=== PATIENT | male | born 1950 | race Caucasian/White ===

== ENCOUNTER 2016-10-20 16:21 | Inpatient (IN) | payer MEDICARE, OTHER ==
[2016-10-20] MEDS ORDERED: diPHENhydraMINE PO* 25 MG PO ONE (16:28)
[2016-10-20] MEDS ORDERED: Acetaminophen TAB* 325 MG PO ONE (16:28)
[2016-10-20] MEDS ORDERED: Furosemide IV* 10 MG/ML 10 ML VIAL (100 MG) IV ONE (16:31)
[2016-10-20] MEDS ORDERED: oxyCODONE TAB* 5 MG TAB PO PRN (17:05)
[2016-10-20] MEDS ORDERED: Ondansetron ODT TAB* 4 MG PO PRN (17:05)
[2016-10-20] MEDS: Insulin GLARGINE(*) 1 UNITS UNIT SUBCUT SCH (19:31)
[2016-10-20] MEDS: Metoprolol Succinate XL TAB* 100 MG PO SCH (20:15)
[2016-10-20] MEDS: Pantoprazole IV* 80 MG in NS 0.9% 250 ML* 250 ML IVPB SCH (21:29)
[2016-10-20] MEDS: NS 0.9% 1000 ML* 1,000 ML IV SCH (21:29)
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
[2016-10-21 04:01] LABS: Hematocrit 20 % (42-52); Hemoglobin 6.7 g/dl (14.0-18.0); Mean Corpuscular HGB Conc 33 g/dl (31-36); Mean Corpuscular Hemoglobin 30 pg (27-31); Mean Corpuscular Volume 90 fL (80-94); Mean Platelet Volume 8 um3 (7.4-10.4); Red Blood Count 2.23 10^6/ul (4.0-5.4); Red Cell Distribution Width 19 % (10.5-15); White Blood Count 8.9 10^3/ul (3.5-10.8)
[2016-10-21 04:02] LABS: Comments Flag Yes
[2016-10-21 04:19] LABS: Albumin 2.9 g/dL (3.2-5.2); BUN/Creatinine Ratio 31.1 (8-20); Calcium 8.7 mg/dL (8.6-10.3); EGFR African American 61.5 (>60); EGFR Non-African American 47.9 (>60); Globulin 2.8 g/dL (2-4); Potassium 4.4 mmol/L (3.5-5.0); Total Bilirubin 1.1 mg/dL (0.2-1.0); Total Protein 5.7 g/dL (6.4-8.9)
[2016-10-21] MEDS: Pantoprazole IV* 80 MG in NS 0.9% 250 ML* 250 ML IVPB SCH ×2 (05:54→13:39)
[2016-10-21] MEDS: Lisinopril TAB* 10 MG PO SCH (08:16)
[2016-10-21] MEDS: Digoxin TAB* 0.125 MG PO SCH (08:16)
[2016-10-21] MEDS: Metoprolol Succinate XL TAB* 100 MG PO SCH ×2 (08:16→20:45)
--- NOTE | 2016-10-21 09:41 | PN ---
Progress Note - Progress Note SOAP: Subjective: []See H+P for presentation. Today feeling much better after fluids and blood cells. He has low grade fever but no chills. Only modest abdominal pain, no recent steroids or NSAIDS. Hungry. PMHx: Esophogeal cancer, stage III. Completed Chemotherpay and XRT 08/25/16. PET in early October with good response and planning definitive surgery. A-fib on rate control CRI Digoxin (Lanoxin Tab*) 0.125 mg PO DAILY [facility] Last Admin: 10/21/16 08:16 Dose: 0.125 mg Pantoprazole Sodium 80 mg/ (Sodium Chloride) 250 mls @ 25 mls/hr IVPB Q10H [facility] Last Admin: 10/21/16 05:54 Dose: 25 mls/hr Sodium Chloride (Ns 0.9% 1000 Ml*) 1,000 mls @ 75 mls/hr IV PER RATE [facility] Last Admin: 10/20/16 21:29 Dose: 75 mls/hr Insulin Glargine (Lantus(*)) 30 units SUBCUT QPM [facility] Last Admin: 10/20/16 19:31 Dose: 30 units Lisinopril (Prinivil Tab*) 10 mg PO DAILY [facility] Last Admin: 10/21/16 08:16 Dose: 10 mg Metoprolol Succinate (Toprol Xl Tab*) 100 mg PO BID [facility] Last Admin: 10/21/16 08:16 Dose: 100 mg Ondansetron HCl (Zofran Odt Tab*) 4 mg PO Q6H PRN PRN Reason: NAUSEA Oxycodone HCl (Roxycodone Tab*) 5 mg PO Q4H PRN PRN Reason: PAIN Last Admin: 10/21/16 02:40 Dose: 5 mg Objective: [] Vital Signs Temp Pulse Resp BP Pulse Ox 99.2 F 74 19 103/62 99 10/21/16 08:00 10/21/16 08:16 10/21/16 07:00 10/21/16 06:00 10/21/16 07:00 HEENT - PALE, NO THRUSH CTA RRR S1S2 AND IN 80S GOOD BS, NT/ND EXT +1 [facility] NEURO [id number] Assessment: 66 year status post chemotherapy and radiation completed 2 months ago and now with acute GIB. Given improved PET scan is would be unusual to see bleeding from his tumor but it is possible. I am concerned about PUD. Bleeding acute to sub-acute, Hgb 9.0 in early October. Could have underlying iron deficiency. He has increased BUN but stable renal function, BP at his low baseline. Plan: []1. IV PPI and EGD today 2. Tx 4 U PRBC, follow up CBC today. No additional transfusions 3. a-fib stable on dig/beta rosalinda 4. BP stable, will continue IVF 5. NPO until after EGD 6. Has follow up at [facility] on Monday, if needed can delay appointment.
[2016-10-21 10:17] LABS: Albumin 2.8 g/dL (3.2-5.2); BUN/Creatinine Ratio 29.7 (8-20); Calcium 8.5 mg/dL (8.6-10.3); Globulin 2.9 g/dL (2-4); Potassium 4.2 mmol/L (3.5-5.0); Total Bilirubin 1.2 mg/dL (0.2-1.0); Total Protein 5.7 g/dL (6.4-8.9)
[2016-10-21 11:46] LABS: Hematocrit 24 % (42-52); Hemoglobin 7.8 g/dl (14.0-18.0); Mean Corpuscular HGB Conc 33 g/dl (31-36); Mean Corpuscular Hemoglobin 29 pg (27-31); Mean Corpuscular Volume 88 fL (80-94); Mean Platelet Volume 8 um3 (7.4-10.4); Red Blood Count 2.67 10^6/ul (4.0-5.4); Red Cell Distribution Width 21 % (10.5-15); White Blood Count 9.3 10^3/ul (3.5-10.8)
[2016-10-21] MEDS ORDERED: Pantoprazole IV* 40 MG ONE (13:32)
[2016-10-21] MEDS ORDERED: Midazolam* 1 MG/ML 10 ML VIAL (10 MG) ONE (15:24)
[2016-10-21] MEDS ORDERED: Meperidine SYRINGE* 50 MG/ML ONE (15:24)
[2016-10-21] MEDS ORDERED: Sucralfate SUSP 1 GM/10 ml 10 ML UDC PO SCH (17:30)
[2016-10-21] MEDS: Insulin GLARGINE(*) 1 UNITS UNIT SUBCUT SCH (18:17)
[2016-10-21] MEDS: Sucralfate SUSP 1 GM/10 ml 10 ML UDC PO SCH (20:46)
[2016-10-22] MEDS: Pantoprazole IV* 80 MG in NS 0.9% 250 ML* 250 ML IVPB SCH ×3 (01:06→21:28)
[2016-10-22] MEDS: Sucralfate SUSP 1 GM/10 ml 10 ML UDC PO SCH ×4 (02:16→21:25)
[2016-10-22 06:12] LABS: Hematocrit 23 % (42-52); Hemoglobin 7.5 g/dl (14.0-18.0); Mean Corpuscular HGB Conc 33 g/dl (31-36); Mean Corpuscular Hemoglobin 29 pg (27-31); Mean Corpuscular Volume 88 fL (80-94); Mean Platelet Volume 8 um3 (7.4-10.4); Red Blood Count 2.56 10^6/ul (4.0-5.4); Red Cell Distribution Width 20 % (10.5-15); White Blood Count 7.7 10^3/ul (3.5-10.8)
[2016-10-22 06:27] LABS: ALT 12 U/L (7-52); Albumin 2.8 g/dL (3.2-5.2); Alkaline Phosphatase 61 U/L (34-104); Blood Urea Nitrogen 32 mg/dL (6-24); CO2 Carbon Dioxide 19 mmol/L (22-32); Calcium 8.2 mg/dL (8.6-10.3); Chloride 108 mmol/L (101-111); EGFR African American 76.2 (>60); EGFR Non-African American 59.2 (>60); Glucose 100 mg/dL (70-100); Sodium 132 mmol/L (133-145); Total Protein 5.8 g/dL (6.4-8.9)
--- NOTE | 2016-10-22 07:20 | PRO ---
DATE: 10/21/16 - ROOM #ICU-08 PROCEDURE: Upper gastrointestinal endoscopy through the duodenal bulb. INDICATION: This 66-year-old man completed chemoradiation for adenocarcinoma of the esophagus. His hemoglobin yesterday was noted to be in the upper 4's and he was admitted to the ICU, transfused 4 units, placed on a Protonix drip, and had his Pradaxa held. Pradaxa had been held during his chemo course. It had been noted that his renal function had deteriorated somewhat. The probability of restarting it was emphasized at cardiology followup visit. Since admission last night, he has not had any vomiting and has not had any bowel movements. His hemoglobin has come up to 7.6. ENDOSCOPIST: Dr. Roberts. MEDICATIONS: Midazolam 10, meperidine 50. FINDINGS: He is a substantially overweight, middle-aged man, in no overt distress at this time. He states he is hungry. EGD: Larynx - views are quite limited as it is narrow. Esophagus - easily entered and the mucosa is normal at the upper sphincter and in the upper one-third of the esophagus and then some erosions began to be seen at 28, they increased at 30, and then adherent fresh blood clots were seen in the esophagus. They are located in several locations. They are lavaged clear and suctioned clear. The lower esophagus appears quite eroded and irregular though there is a very patent lumen. The esophagus is quite ulcerated from about 8 o'clock counterclockwise to noon. There are granular thickened folds, but compared to pre-treatment, again there is quite an adequate lumen. The EG junction is at about 40 and there is a wide hiatal hernia. There is no pulsatile bleeding or area of localized welling up. There is a diffuse bloody oozing area. Stomach - old blood is present, but the contours appear normal and there is no acute bleeding in the stomach. The antrum appears normal. Duodenum - pylorus, bulb, and a few centimeters at the apex of the bulb appear normal. IMPRESSION: Ulcerative esophagitis - in the area of treatment which would also correspond to an acid-vulnerable area. At this point, there is still probably some Pradaxa effect present and this will improve in the next few hours. He should be maintained on a PPI drip and maybe tomorrow switch to twice a day p.o. Topical Carafate after meals may also be helpful. [id number]/[facility] #: [id number] DEBORAH
[2016-10-22] MEDS ORDERED: Pantoprazole IV* 40 MG ONE (08:20)
[2016-10-22] MEDS: Metoprolol Succinate XL TAB* 100 MG PO SCH ×2 (08:33→21:25)
[2016-10-22] MEDS: Digoxin TAB* 0.125 MG PO SCH (08:34)
[2016-10-22] MEDS: Lisinopril TAB* 10 MG PO SCH (08:34)
[2016-10-22] MEDS: NS 0.9% 1000 ML* 1,000 ML IV SCH (17:06)
[2016-10-22] MEDS: Insulin GLARGINE(*) 1 UNITS UNIT SUBCUT SCH (17:57)
[2016-10-23] MEDS: Sucralfate SUSP 1 GM/10 ml 10 ML UDC PO SCH ×3 (00:20→14:40)
[2016-10-23] MEDS: NS 0.9% 1000 ML* 1,000 ML IV SCH (05:46)
[2016-10-23 05:59] LABS: Hematocrit 20 % (42-52); Mean Corpuscular HGB Conc 34 g/dl (31-36); Mean Corpuscular Hemoglobin 30 pg (27-31); Mean Corpuscular Volume 88 fL (80-94); Mean Platelet Volume 8 um3 (7.4-10.4); Red Blood Count 2.27 10^6/ul (4.0-5.4); Red Cell Distribution Width 20 % (10.5-15); White Blood Count 6.7 10^3/ul (3.5-10.8)
[2016-10-23 06:00] LABS: Comments Flag Yes
[2016-10-23 06:02] LABS: Hemoglobin 6.7 g/dl (14.0-18.0)
[2016-10-23] MEDS: Pantoprazole IV* 80 MG in NS 0.9% 250 ML* 250 ML IVPB SCH (07:39)
[2016-10-23] MEDS: Metoprolol Succinate XL TAB* 100 MG PO SCH (09:04)
[2016-10-23] MEDS: Digoxin TAB* 0.125 MG PO SCH (09:04)
[2016-10-23] MEDS: Lisinopril TAB* 10 MG PO SCH (09:05)
[2016-10-23 16:30] VITALS: BP 134/72
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
== END 2016-10-23 16:35 | disposition home or self-care (01) | DRG 381 ==
LOC: ICU 16:50
PROVIDERS: ADMIT Internal Medicine Hematology & Oncology; ATTEND Internal Medicine Hematology & Oncology
PROC: 0DJ08ZZ Inspection of Upper Intestinal Tract, Via Natural or Artificial Opening Endoscopic (ICD-10-PCS; 2016-10-21)
PROC: 30233N1 Transfusion of Nonautologous Red Blood Cells into Peripheral Vein, Percutaneous Approach (ICD-10-PCS; principal; 2016-10-23)
DX: K22.11 Ulcer of esophagus with bleeding (principal); C15.9 Malignant neoplasm of esophagus, unspecified; E11.22 Type 2 diabetes mellitus with diabetic chronic kidney disease; I50.9 Heart failure, unspecified; E66.01 Morbid (severe) obesity due to excess calories; D64.9 Anemia, unspecified; I25.5 Ischemic cardiomyopathy; I48.91 Unspecified atrial fibrillation; I25.10 Atherosclerotic heart disease of native coronary artery without angina pectoris; M10.9 Gout, unspecified; N18.9 Chronic kidney disease, unspecified; I25.2 Old myocardial infarction; Z95.810 Presence of automatic (implantable) cardiac defibrillator; Z98.61 Coronary angioplasty status; Z87.891 Personal history of nicotine dependence; Z92.21 Personal history of antineoplastic chemotherapy; Z92.3 Personal history of irradiation; Z68.32 Body mass index [BMI] 32.0-32.9, adult
CPT/HCPCS: 36415; 80053; 82272; 83735; 85025; 85027; 86850; 86900; 86901; 86922; 87040; 87641; 99223; 99232; A9270-GY; J1940; J2250; P9016; P9040

== ENCOUNTER 2017-03-03 13:53 | Inpatient (IN) | payer MEDICARE, OTHER ==
[2017-03-03] MEDS ORDERED: Ondansetron INJ* 2 MG/ML VIAL IV PRN (14:44)
[2017-03-03] MEDS ORDERED: LORazepam TAB(*) 0.5 MG PO PRN (14:45)
[2017-03-03] MEDS ORDERED: Pantoprazole IV* 80 MG in NS 0.9% 250 ML* 250 ML IVPB SCH ×4 (16:00)
[2017-03-03] MEDS: NS 0.9% 1000 ML* 1,000 ML IV SCH (16:36)
[2017-03-03] MEDS: Allopurinol TAB* 100 MG PO SCH (17:36)
[2017-03-03] MEDS: Insulin GLARGINE(*) 1 UNITS UNIT SUBCUT SCH (17:40)
[2017-03-03] MEDS: Ondansetron ODT TAB* 4 MG PO PRN (19:52)
[2017-03-03] MEDS: Metoprolol Tartrate TAB* 50 mg PO SCH (20:54)
[2017-03-03] MEDS ORDERED: Metoprolol Succinate XL TAB* 50 MG PO SCH (21:00)
[2017-03-03] MEDS: Pantoprazole IV* 80 MG in NS 0.9% 250 ML* 250 ML IVPB SCH (23:03)
[2017-03-03] MEDS: oxyCODONE TAB* 5 MG TAB PO PRN (23:13)
[2017-03-04] MEDS: NS 0.9% 1000 ML* 1,000 ML IV SCH ×2 (05:00→18:23)
[2017-03-04] MEDS: Ondansetron ODT TAB* 4 MG PO PRN ×3 (06:24→17:32)
[2017-03-04 06:30] LABS: Hematocrit 20 % (42-52); Hemoglobin 6.6 g/dl (14.0-18.0); Mean Corpuscular HGB Conc 33 g/dl (31-36); Mean Corpuscular Hemoglobin 30 pg (27-31); Mean Corpuscular Volume 89 fL (80-94); Mean Platelet Volume 8 um3 (7.4-10.4); Red Blood Count 2.25 10^6/ul (4.0-5.4); Red Cell Distribution Width 17 % (10.5-15); White Blood Count 4.3 10^3/ul (3.5-10.8)
[2017-03-04 06:34] LABS: Add Diff/Slide Review? Slide Review Added; Comments Flag Yes
[2017-03-04 06:53] LABS: Albumin 2.8 g/dL (3.2-5.2); BUN/Creatinine Ratio 22.1 (8-20); Calcium 8.5 mg/dL (8.6-10.3); EGFR African American 70.8 (>60); EGFR Non-African American 55.1 (>60); Globulin 2.7 g/dL (2-4); Total Bilirubin 1.4 mg/dL (0.2-1.0); Total Protein 5.5 g/dL (6.4-8.9)
[2017-03-04] MEDS ORDERED: Acetaminophen TAB* 325 MG PO PRN (08:12)
[2017-03-04] MEDS ORDERED: Furosemide IV* 10 MG/ML 2 ML VIAL (20 MG) IV ONE (08:15)
[2017-03-04] MEDS: Pantoprazole IV* 80 MG in NS 0.9% 250 ML* 250 ML IVPB SCH ×2 (08:22→18:23)
[2017-03-04] MEDS: Metoprolol Tartrate TAB* 50 mg PO SCH ×2 (08:23→20:38)
[2017-03-04] MEDS: Polyethylene Glycol 3350* 17 GM PACKET PO SCH (12:00)
[2017-03-04] MEDS: Miracle MW-Ben/Nyst/Tetrac SWISH SPIT SCH ×3 (12:01→19:21)
[2017-03-04 12:24] LABS: Hematocrit 24 % (42-52); Hemoglobin 7.9 g/dl (14.0-18.0)
--- NOTE | 2017-03-04 15:23 | CONS ---
CC: Dr. Purvis. * CONSULTATION REPORT: DATE OF CONSULTATION: 03/04/17 REQUESTING PHYSICIAN: Dr. Purvis. INDICATION: Anemia, iron deficiency, esophageal cancer. NARRATIVE: Mr. Lawrence is a pleasant 66-year-old gentleman with metastatic esophageal cancer, who is undergoing palliative chemotherapy. The patient was admitted from the Oncology Clinic yesterday due to dehydration, hypotension and anemia. The patient states that he has noticed dark stools for the past few weeks. He has been receiving chronic IV iron and IV blood transfusions. He has not seen any blood in his sputum that he is bringing up. He has also noted constipation for the past week. He has not been very hungry, but he is hungry now. The patient was admitted to the hospital for presumed bleeding from his esophageal tumor. The patient has received 1 unit of blood. He states that he is feeling little bit better. Unfortunately, he is also on anticoagulation for cardiomyopathy that is likely contributing to his bleeding. PAST MEDICAL HISTORY: Significant for gout, atrial fibrillation, congestive heart failure with low EF, coronary artery disease, diabetes, status post OH. PAST SURGICAL HISTORY: Includes stents and AICD. SOCIAL HISTORY: Quit smoking 5 years ago. Denies any alcohol. MEDICATIONS UPON ADMISSION: Include: 1. Allopurinol. 2. Ativan. 3. Atorvastatin. 4. Carafate. 5. Digoxin. 6. Lantus. 7. Lisinopril. 8. Oxycodone. 9. Pantoprazole. 10. Zofran. 11. Pradaxa. ALLERGIES: He has no known drug allergies. REVIEW OF SYSTEMS: Twelve systems were reviewed, other than mentioned in the HPI were unremarkable. PHYSICAL EXAM: Temperature is 98.7, blood pressure is 120/51, pulse is 81. General: Chronically ill-appearing male, in no apparent distress. Alert, oriented, and pleasant. Fluent. He is pale. Heart: Regular rate and rhythm. Lungs: Clear to auscultation. Abdomen: Obese. Positive bowel sounds. Soft, nontender and nondistended. No hepatosplenomegaly, masses, rebound or guarding. Conjunctivae are pale. Skin is warm and dry. LABORATORY DATA: Of note, hemoglobin is 6.6, platelets 95, white count 4.3. BUN 29, creatinine 1.31. ASSESSMENT AND PLAN: This is a 66-year-old gentleman with metastatic esophageal cancer, who is admitted with anemia, constipation. Regarding the anemia, likely he is oozing from his esophageal tumor. Unfortunately, there really is not much that we can do for that. If it worsens, we may need to consider radiation; however, endoscopic therapies for bleeding cessation do not typically help in this situation. Right now, I do not think he needs an upper endoscopy; however, if he continues to ooze or bleed, we may need to perform and want to rule out other potential causes. I would like to start him on MiraLAX for his constipation. He is asking for a regular diet. I think that this is fine and we will continue to follow along. [id number]/[facility] #: [id number] DEBORAH
[2017-03-04] MEDS: Insulin GLARGINE(*) 1 UNITS UNIT SUBCUT SCH (16:56)
[2017-03-04] MEDS: Allopurinol TAB* 100 MG PO SCH (17:32)
[2017-03-04] MEDS: Digoxin TAB* 0.25 MG PO SCH (17:32)
[2017-03-04 18:41] LABS: Hematocrit 22 % (42-52); Hemoglobin 7.3 g/dl (14.0-18.0)
[2017-03-04] MEDS: oxyCODONE TAB* 5 MG TAB PO PRN (19:20)
[2017-03-05 00:24] LABS: Hematocrit 20 % (42-52); Hemoglobin 6.5 g/dl (14.0-18.0)
[2017-03-05 00:31] LABS: Comments Flag Yes
[2017-03-05] MEDS: Pantoprazole IV* 80 MG in NS 0.9% 250 ML* 250 ML IVPB SCH ×2 (05:35→15:44)
[2017-03-05] MEDS: Ondansetron ODT TAB* 4 MG PO PRN (05:37)
[2017-03-05 06:20] LABS: Hematocrit 22 % (42-52); Hemoglobin 7.3 g/dl (14.0-18.0); Mean Corpuscular HGB Conc 33 g/dl (31-36); Mean Corpuscular Hemoglobin 30 pg (27-31); Mean Corpuscular Volume 90 fL (80-94); Mean Platelet Volume 10 um3 (7.4-10.4); Red Blood Count 2.48 10^6/ul (4.0-5.4); Red Cell Distribution Width 16 % (10.5-15)
[2017-03-05 06:33] LABS: Comments Flag Yes
[2017-03-05 06:34] LABS: White Blood Count 2.7 10^3/ul (3.5-10.8)
[2017-03-05] MEDS ORDERED: Digoxin TAB* 0.125 MG PO SCH (09:00)
[2017-03-05] MEDS: NS 0.9% 1000 ML* 1,000 ML IV SCH ×2 (09:25→20:02)
[2017-03-05] MEDS: Miracle MW-Ben/Nyst/Tetrac SWISH SPIT SCH ×4 (09:30→21:38)
[2017-03-05] MEDS: Metoprolol Tartrate TAB* 50 mg PO SCH ×2 (09:30→21:36)
[2017-03-05] MEDS: Polyethylene Glycol 3350* 17 GM PACKET PO SCH (09:30)
[2017-03-05] MEDS: Allopurinol TAB* 100 MG PO SCH (17:45)
[2017-03-05] MEDS: Insulin GLARGINE(*) 1 UNITS UNIT SUBCUT SCH (17:45)
[2017-03-05] MEDS: Digoxin TAB* 0.125 MG PO SCH (17:45)
[2017-03-05 19:32] LABS: Hematocrit 22 % (42-52); Hemoglobin 7.4 g/dl (14.0-18.0)
[2017-03-05 19:34] LABS: Comments Flag Yes
[2017-03-05] MEDS: oxyCODONE TAB* 5 MG TAB PO PRN (21:37)
[2017-03-06] MEDS: Pantoprazole IV* 80 MG in NS 0.9% 250 ML* 250 ML IVPB SCH ×4 (02:27→22:43)
[2017-03-06] MEDS: NS 0.9% 1000 ML* 1,000 ML IV SCH (06:13)
[2017-03-06] MEDS: Ondansetron ODT TAB* 4 MG PO PRN (07:33)
[2017-03-06] MEDS: Polyethylene Glycol 3350* 17 GM PACKET PO SCH (08:24)
[2017-03-06] MEDS: oxyCODONE TAB* 5 MG TAB PO PRN ×2 (08:28→19:32)
[2017-03-06] MEDS: Metoprolol Tartrate TAB* 50 mg PO SCH ×2 (08:30→22:27)
[2017-03-06] MEDS: Miracle MW-Ben/Nyst/Tetrac SWISH SPIT SCH ×4 (08:41→22:29)
--- NOTE | 2017-03-06 09:19 | PN ---
Progress Note - Progress Note Date of Service: 03/06/17 SOAP: Subjective: +marked RUQ pain this am ("feels like I am being stabbed by an ice pick" "do you think it is my gallbladder?"). none now. awaiting scope later today. no bloody BMs, no vomiting. Objective: Vital Signs Temp Pulse Resp BP Pulse Ox 97.8 F 74 12 118/65 97 03/06/17 08:20 03/06/17 08:20 03/06/17 08:28 03/06/17 08:20 03/06/17 08:20 sitting up in nad perr eomi op moist, adentulous CTA bl irr irr chest clean port soft nt +bs no le edema A+O x 3, nonfocal neurological exam Laboratory Results - last 24 hr 03/05/17 03/05/17 03/06/17 16:48 19:35 07:35 Hgb 7.4 L Hct 22 L POC Glucose (mg/dL) 147 H 127 H Acetaminophen (Tylenol Tab*) 650 mg PO Q6H PRN PRN Reason: PAIN/FEVER Allopurinol (Zyloprim Tab*) 100 mg PO QPM [facility] Last Admin: 03/05/17 17:45 Dose: 100 mg Digoxin (Lanoxin Tab*) 0.125 mg PO EVERY OTHER DAY@1700 [facility] Last Admin: 03/05/17 17:45 Dose: 0.125 mg Digoxin (Lanoxin Tab*) 0.25 mg PO EVERY OTHER DAY@1700 [facility] Last Admin: 03/04/17 17:32 Dose: 0.25 mg Heparin Sodium (Porcine) (Heparin Flush Port (Ivad)) 5 ml FLUSH DAILY [facility] PRN Reason: Protocol Last Admin: 03/06/17 07:49 Dose: Not Given Sodium Chloride (Ns 0.9% 1000 Ml*) 1,000 mls @ 100 mls/hr IV PER RATE [facility] Last Admin: 03/06/17 06:13 Dose: 100 mls/hr Pantoprazole Sodium 80 mg/ (Sodium Chloride) 250 mls @ 25 mls/hr IVPB Q10H [facility] Last Admin: 03/06/17 02:27 Dose: 25 mls/hr Insulin Glargine (Lantus(*)) 30 units SUBCUT QPM [facility] Last Admin: 03/05/17 17:45 Dose: 30 unit Lorazepam (Ativan Tab(*)) 0.5 mg PO BID PRN PRN Reason: AGITATION/ANXIETY Metoprolol Tartrate (Lopressor Tab*) 50 mg PO BID [facility] Last Admin: 03/06/17 08:30 Dose: 50 mg Multi-Ingredient Mouthwash/Gargle (Miracle Mw-Barney/Nyst/Tetrac*) 5 ml SWISH SPIT QID [facility] Last Admin: 03/06/17 08:41 Dose: 5 ml Ondansetron HCl (Zofran Inj*) 4 mg IV Q4H PRN PRN Reason: nausea Ondansetron HCl (Zofran Odt Tab*) 4 mg PO Q4H PRN PRN Reason: NAUSEA Last Admin: 03/06/17 07:33 Dose: 4 mg Oxycodone HCl (Roxycodone Tab*) 10 mg PO Q4H PRN PRN Reason: PAIN Last Admin: 03/06/17 08:28 Dose: 10 mg Polyethylene Glycol/Electrolytes (Miralax*) 17 gm PO DAILY [facility] Last Admin: 03/06/17 08:24 Dose: Not Given Assessment: 66 yo M w metastatic esophageal cancer on palliative weekly taxol (and ferrlicit ) admitted with dark stools and worsening anemia, with need for 5 units of blood in the last 6 days after 6 weeks of transfusion independence. DDx includes bleeding primary tumor vs. new process. Plan: -endoscopy later this am -check CBC at 10 am -holding pradaxa -cont PPI IV drip -cont dig for afib, no AC given active GI bleeding full code
[2017-03-06 10:53] LABS: Hematocrit 23 % (42-52); Hemoglobin 7.3 g/dl (14.0-18.0); Mean Corpuscular HGB Conc 32 g/dl (31-36); Mean Corpuscular Hemoglobin 29 pg (27-31); Mean Corpuscular Volume 89 fL (80-94); Mean Platelet Volume 10 um3 (7.4-10.4); Red Blood Count 2.55 10^6/ul (4.0-5.4); Red Cell Distribution Width 16 % (10.5-15)
[2017-03-06 11:01] LABS: Comments Flag Yes; White Blood Count 2.7 10^3/ul (3.5-10.8)
[2017-03-06] MEDS ORDERED: Meperidine SYRINGE* 50 MG/ML ONE (12:42)
[2017-03-06] MEDS ORDERED: Midazolam* 1 MG/ML 10 ML VIAL (10 MG) ONE (12:42)
[2017-03-06] MEDS: Digoxin TAB* 0.25 MG PO SCH (17:11)
[2017-03-06 18:22] LABS: Magnesium 1.7 mg/dL (1.9-2.7)
[2017-03-06] MEDS ORDERED: Magnesium Sulfate 2 GM IV IVPB ONE (19:00)
[2017-03-06] MEDS: Allopurinol TAB* 100 MG PO SCH (19:32)
[2017-03-06] MEDS: Insulin GLARGINE(*) 1 UNITS UNIT SUBCUT SCH (19:33)
[2017-03-06] MEDS: Magnesium Oxide TAB* 400 MG PO SCH (22:27)
[2017-03-07] MEDS: Miracle MW-Ben/Nyst/Tetrac SWISH SPIT SCH ×4 (08:53→21:55)
[2017-03-07] MEDS: Ondansetron ODT TAB* 4 MG PO PRN (08:53)
[2017-03-07] MEDS: Magnesium Oxide TAB* 400 MG PO SCH ×2 (08:53→21:54)
[2017-03-07] MEDS: Metoprolol Tartrate TAB* 50 mg PO SCH ×2 (08:53→21:54)
[2017-03-07] MEDS: Polyethylene Glycol 3350* 17 GM PACKET PO SCH (09:16)
[2017-03-07] MEDS ORDERED: Omeprazole CAP* 20 MG PO SCH (10:00)
[2017-03-07 10:28] LABS: Hematocrit 20 % (42-52); Mean Corpuscular HGB Conc 33 g/dl (31-36); Mean Corpuscular Hemoglobin 30 pg (27-31); Mean Corpuscular Volume 90 fL (80-94); Mean Platelet Volume 9 um3 (7.4-10.4); Red Blood Count 2.18 10^6/ul (4.0-5.4); Red Cell Distribution Width 16 % (10.5-15)
[2017-03-07 10:33] LABS: Comments Flag Yes
[2017-03-07 10:39] LABS: Hemoglobin 6.6 g/dl (14.0-18.0)
[2017-03-07 10:40] LABS: White Blood Count 2.9 10^3/ul (3.5-10.8)
--- NOTE | 2017-03-07 14:16 | RAD ---
INDICATION: Limited noncontrast CT of the chest for stereotactic external beam radiation therapy planning. Patient with a history of esophageal cancer. COMPARISON: Most recent CT the chest dated February 03, 2017 TECHNIQUE: Noncontrast CT of the chest with 2.5 mm beam thickness for the purpose of external beam radiation therapy. FINDINGS: Image quality is degraded by respiratory motion artifact. Postoperative findings include left-sided cardiac pacemaker with 2 leads overlying the heart and a right internal jugular vein Mediport with the tip terminating at the lower SVC. The lungs exhibit mild centrilobular emphysematous changes. There are small bilateral pleural effusions, larger on the right than the left and increase in size from the previous CT of the chest. The esophagus is mostly fluid-filled. Chronic findings in the upper abdomen include renal cysts, gallstones and calcified atherosclerosis of the abdominal aorta. IMPRESSION: 1. CT FINDINGS DESCRIBED ABOVE ON THIS LIMITED CT OF THE CHEST FOR THE PURPOSE OF SBRT PLANNING. 2. SLIGHT INCREASE IN SIZE OF THE BILATERAL PLEURAL EFFUSIONS.
--- NOTE | 2017-03-07 17:41 | PRO ---
CC: Dr. Purvis; Dr. Ramos * PROCEDURE REPORT: DATE OF PROCEDURE: 03/06/17 PROCEDURE: EGD. REFERRING PHYSICIAN: Dr. Dayne Barillas. INDICATION: Melena. MEDICATIONS GIVEN: 50 mg IV Demerol, 5 mg IV Versed. DESCRIPTION OF PROCEDURE: After the EGD procedure including risks, benefits, and alternatives not limited to perforation, surgery, and/or were explained to the patient, written consent was then obtained. IV medication was given and a bite block was placed between the teeth. An Olympus gastroscope was then inserted into the patient's mouth, advanced down the esophagus, into the stomach, into the distal duodenum. In the esophagus, at the GE junction, Z- line was intact. No erosive esophagitis, stricture, or ring was seen. However , he did have a very large and circumferential esophageal mass, this is a known malignancy, it extended approximately 7 cm, it was oozing of blood. No significant bleeding was seen, however, was oozing of blood. I could not pass the original adult scope and had to switch over to the pediatric gastroscope in order to navigate through the area. Scope was advanced through the GE junction, into the body of the stomach. Retroflex view and forward views were unremarkable. Scope was advanced through a widely patent pylorus, into duodenal bulb, into the distal duodenum, both of which were unremarkable. Scope was withdrawn into the stomach, where an H. pylori biopsy was obtained. Scope was then withdrawn from the patient. He tolerated the procedure well, was returned to the recovery room in stable condition. IMPRESSION: 1. Complete upper endoscopy into the distal duodenum with biopsies. 2. Biopsy for Helicobacter pylori. 3. Esophageal cancer, no malignancy, oozing of blood, this is the only bleeding source that I could find. I will discuss the findings with Dr. Umaña. [id number]/[facility] #: [id number] [facility]
[2017-03-07] MEDS: Digoxin TAB* 0.125 MG PO SCH (18:12)
[2017-03-07] MEDS: Allopurinol TAB* 100 MG PO SCH (18:13)
[2017-03-07] MEDS: Insulin GLARGINE(*) 1 UNITS UNIT SUBCUT SCH (18:13)
[2017-03-07] MEDS: oxyCODONE TAB* 5 MG TAB PO PRN (19:48)
[2017-03-07 20:21] VITALS: BP 130/69
--- NOTE | 2017-03-08 11:26 | RADMED ---
CC: Dr. Brambila; Dr. Herring; Dr. Dayne Barillas. * RADIATION ONCOLOGY INPATIENT CONSULTATION NOTE: DATE OF SERVICE: 03/07/17 - ROOM #442 REFERRING PHYSICIAN: Dr. Purvis. 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 Performance status ECOG 2. HISTORY OF PRESENT ILLNESS: Mr. Lawrence is a 66-year-old gentleman diagnosed with GE junction esophageal adenocarcinoma in May 2016. He subsequently underwent radiation therapy, 5040 cGy completed 08/25/16 along with concurrent cisplatin and 5FU. He developed local recurrence as well as metastatic disease to the liver with liver biopsy 12/23/16 confirming metastatic adenocarcinoma. He has been receiving subsequent chemotherapy, but has had multiple episodes of GI bleeding, and last week reported significant weakness and dizziness and fatigue and was found to have substantial anemia and has required hospital admission and multiple blood transfusions. On 03/06/17, he underwent repeat upper endoscopy with Dr. Brambila, identifying tumor in the distal esophagus actively oozing blood. He is referred for consideration of additional radiation therapy for palliation of bleeding from recurrent esophageal cancer. He has some intermittent pain problems, which he manages reasonably well, and after transfusions he is feeling quite a bit better. PAST MEDICAL HISTORY: Esophageal cancer, as in the history of present illness. History of gout, myocardial infarction, atrial fibrillation, congestive heart failure, coronary artery disease, and diabetes. FAMILY HISTORY: Significant for his father who had leukemia and his mother who had multiple myeloma as well as a sister with breast cancer. SOCIAL HISTORY: He is accompanied by his who is quite supportive. He is a former smoker and does not drink significant amount of alcohol. MEDICATIONS: 1. Tylenol. 2. Allopurinol. 3. Digoxin. 4. Lantus insulin. 5. Ativan. 6. Magnesium oxide. 7. Lopressor. 8. Miracle mouthwash. 9. Omeprazole. 10. Zofran. 11. Oxycodone. 12. MiraLAX. ALLERGIES: SOTALOL. REVIEW OF SYSTEMS: As in the history of present illness, otherwise a complete review of systems is obtained from the patient, reviewed negative for additional significant findings. PHYSICAL EXAMINATION: Vital Signs: Temperature 98.4, pulse rate 84, respiratory rate 24, oxygen saturation 99% on room air, and blood pressure 119/ 64. General: He is awake, alert, and oriented; in no acute distress. Normocephalic and atraumatic. Sclerae are anicteric. Neck: Supple. Full range of motion. Midline trachea. No masses palpable in the neck. Lungs have symmetric air entry bilaterally. Cardiovascular: S1 and S2, regular. Abdomen : Soft and nontender. Extremities: No cyanosis or edema. PATHOLOGY AND RADIOLOGY: Reviewed, as in the history of present illness. ASSESSMENT AND PLAN: Mr. 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 I discussed with the patient and his the logistics and rationale for consideration of additional radiation therapy, specifically for palliation of bleeding. I explained the potential risks and benefits of this treatment, alternatives, as well as the acute and group home frequent and uncommon toxicities. He is familiar from his prior radiation therapy which was completed in August 2016. I explained some potential increased risk for repeat radiation therapy, but with active bleeding, and with 6 months time that has passed since his prior treatment, the potential benefit of radiation therapy to reduce bleeding would seem to outweigh some potential risks. I did answer the patient's and his 's questions to the best of my ability. He is interested to proceed with radiation therapy as discussed, and did sign informed consent. He will undergo CT simulation today to facilitate treatment planning. For his situation, I recommend 2000 cGy at 400 cGy per fraction, tentative start date 03/08/17. Thank you for giving me the opportunity to participate in the care of this very pleasant gentleman. [id number]/[facility] #: [id number] [facility]
== END 2017-03-07 22:15 | disposition home or self-care (01) | DRG 375 ==
LOC: MEDTELE 14:58
PROVIDERS: ADMIT Internal Medicine Hematology & Oncology; ATTEND Internal Medicine Hematology & Oncology
PROC: 30233N1 Transfusion of Nonautologous Red Blood Cells into Peripheral Vein, Percutaneous Approach (ICD-10-PCS; 2017-03-03)
PROC: 0DB68ZX Excision of Stomach, Via Natural or Artificial Opening Endoscopic, Diagnostic (ICD-10-PCS; principal; 2017-03-06)
DX: C15.9 Malignant neoplasm of esophagus, unspecified (principal); I42.9 Cardiomyopathy, unspecified; I50.9 Heart failure, unspecified; I95.9 Hypotension, unspecified; C78.89 Secondary malignant neoplasm of other digestive organs; I48.91 Unspecified atrial fibrillation; E11.9 Type 2 diabetes mellitus without complications; D50.9 Iron deficiency anemia, unspecified; D63.8 Anemia in other chronic diseases classified elsewhere; R49.0 Dysphonia; I25.10 Atherosclerotic heart disease of native coronary artery without angina pectoris; M10.9 Gout, unspecified; Z87.891 Personal history of nicotine dependence; Z95.5 Presence of coronary angioplasty implant and graft; Z79.4 Long term (current) use of insulin; Z79.891 Long term (current) use of opiate analgesic; Z79.899 Other long term (current) drug therapy; I25.2 Old myocardial infarction; Z95.810 Presence of automatic (implantable) cardiac defibrillator; Z80.3 Family history of malignant neoplasm of breast; Z80.6 Family history of leukemia; Z80.8 Family history of malignant neoplasm of other organs or systems; E86.0 Dehydration
CPT/HCPCS: 36415; 36591; 77014; 80053; 82272; 83735; 85014; 85018; 85025; 85610; 85730; 86850; 86900; 86901; 86922; 87077; 93005; 96360; 99215; 99223; 99232; A9270-GY; G0463; J1642; J2250; J2310; J3475; P9040

== ENCOUNTER 2017-03-15 07:05 | Day surgery (SDC) | payer MEDICARE, OTHER ==
[~2017-03-15 07:05] MED LIST: Buffered Lidocaine 0.9% SYRIN* 5 ML/SYR SYRINGE INTRADERM ONE
[2017-03-15 07:51] LABS: Hematocrit 24 % (42-52); Hemoglobin 7.8 g/dl (14.0-18.0); Mean Corpuscular HGB Conc 32 g/dl (31-36); Mean Corpuscular Hemoglobin 29 pg (27-31); Mean Corpuscular Volume 91 fL (80-94); Mean Platelet Volume 8 um3 (7.4-10.4); Red Blood Count 2.64 10^6/ul (4.0-5.4); Red Cell Distribution Width 17 % (10.5-15)
[2017-03-15 07:52] LABS: Comments Flag Yes
[2017-03-15 07:53] LABS: White Blood Count 2.6 10^3/ul (3.5-10.8)
[2017-03-15] MEDS ORDERED: Oxymetazoline 0.05% NASAL SPR* 15 ML BTL ONE (11:21)
[2017-03-15] MEDS ORDERED: Lidocaine 4% TOPICAL* 50 ML TOP.SOLN ONE (11:21)
[2017-03-15] MEDS ORDERED: fentaNYL* 50 MCG/ML 2 ML VIAL (100 MCG VIAL) ONE (11:36)
[2017-03-15] MEDS ORDERED: Midazolam* 1 MG/ML 2 ML VIAL (2 MG) ONE (11:36)
[2017-03-15] MEDS ORDERED: Ondansetron INJ* 2 MG/ML VIAL ONE (11:49)
[2017-03-15] MEDS ORDERED: Etomidate* 2 MG/ML 10 ML VIAL ONE (11:49)
[2017-03-15] MEDS ORDERED: Dexamethasone IV* 4 MG/ML 1 ML (4 MG) ONE (11:49)
[2017-03-15] MEDS ORDERED: Succinylcholine* 20 MG/ML 10 ML VIAL ONE (11:49)
[2017-03-15] MEDS ORDERED: Lidocaine 2% PF * 5 ML VIAL ONE (11:49)
[2017-03-15] MEDS ORDERED: fentaNYL* 50 MCG/ML 2 ML VIAL (100 MCG VIAL) IV PRN (12:18)
[2017-03-15] MEDS ORDERED: HYDROmorphone* 1 MG/ML 1 ML SYR IV PRN (12:18)
[2017-03-15] MEDS ORDERED: Acetaminophen TAB* 325 MG PO PRN (12:18)
[2017-03-15] MEDS ORDERED: oxyCODONE TAB* 5 MG TAB ONE (12:34)
[2017-03-15] MEDS: oxyCODONE TAB* 5 MG TAB PO PRN ×2 (12:37→12:38)
[2017-03-15 13:47] VITALS: BP 130/65
--- NOTE | 2017-03-15 21:49 | OP ---
DATE OF OPERATION: 03/15/17 - [facility] DATE OF : 54 SURGEON: Donald Bedolla MD ANESTHESIOLOGIST: Ny Smith MD ANESTHESIA: General endotracheal anesthesia. PRE-OP DIAGNOSIS: Left vocal cord paralysis, complete. POST-OP DIAGNOSIS: Left vocal cord paralysis, complete. OPERATIVE PROCEDURE: Microlaryngoscopy with injection of Prolaryn Plus injectable implant into the left vocal cord. COMPLICATIONS: Good. SPECIMEN: None. BLOOD LOSS: None. DESCRIPTION OF PROCEDURE: The patient was taken to the operating room, placed on the supine position on the operating room table. General anesthesia was induced, and he was orotracheally intubated, turned and draped for the surgery. The laryngoscope was then inserted and suspended and the microscope was brought in and I loaded the Prolaryn on to the laryngeal injection needle and inserted it in multiple locations on the lateral aspect of the vocal cord and injected a total of 0.9 mL of the Prolaryn to medialize the vocal cord. Laryngoscope was removed. The patient tolerated the procedure well, no complications, and transferred to the recovery room in stable condition. [id number]/[facility] #: [id number] MTDD
== END 2017-03-15 13:40 | disposition home or self-care (01) ==
LOC: OR 07:05
PROVIDERS: ATTEND Otolaryngology
DX: J38.01 Paralysis of vocal cords and larynx, unilateral (principal); E11.9 Type 2 diabetes mellitus without complications; Z79.4 Long term (current) use of insulin; Z87.891 Personal history of nicotine dependence; I25.10 Atherosclerotic heart disease of native coronary artery without angina pectoris; C15.9 Malignant neoplasm of esophagus, unspecified; C78.7 Secondary malignant neoplasm of liver and intrahepatic bile duct; Z86.711 Personal history of pulmonary embolism
CPT/HCPCS: 36415; 85025; 86850; 86900; 86901; 86922; A9270-GY; J0330; J1100; J2250; J2405; J3010

== ENCOUNTER 2017-04-30 19:33 | Emergency (ER) | payer MEDICARE, OTHER ==
[2017-04-30] MEDS ORDERED: Acetaminophen TAB* 325 MG PO ONE (20:17)
[2017-04-30 20:50] LABS: Hematocrit 28 % (42-52); Hemoglobin 9.2 g/dl (14.0-18.0); Mean Corpuscular HGB Conc 33 g/dl (31-36); Mean Corpuscular Hemoglobin 27 pg (27-31); Mean Corpuscular Volume 82 fL (80-94); Mean Platelet Volume 8 um3 (7.4-10.4); Red Blood Count 3.43 10^6/ul (4.0-5.4); Red Cell Distribution Width 19 % (10.5-15); White Blood Count 6.1 10^3/ul (3.5-10.8)
[2017-04-30 21:04] LABS: Albumin 3.3 g/dL (3.2-5.2); BUN/Creatinine Ratio 8.8 (8-20); Calcium 9.5 mg/dL (8.6-10.3); EGFR African American 94.3 (>60); EGFR Non-African American 73.3 (>60); Globulin 3.2 g/dL (2-4); Potassium 3.8 mmol/L (3.5-5.0); Total Bilirubin 1.2 mg/dL (0.2-1.0); Total Protein 6.5 g/dL (6.4-8.9)
--- NOTE | 2017-04-30 21:09 | RAD ---
Indication: Fever, esophageal carcinoma. Single frontal view of the chest performed at 2052 hours was reviewed. Comparison is made with previous exam dated July 18, 2016. No mediastinal shift is noted. Heart is of normal size and configuration. Lung georges appear clear. The ICD device is in place. No changes noted since previous exam. IMPRESSION: NO ACTIVE CARDIOPULMONARY DISEASE IS NOTED.
[2017-04-30 21:51] LABS: Urine Bacteria Absent (Absent); Urine Bilirubin Negative (Negative); Urine Glucose Negative (Negative); Urine Nitrite Negative (Negative)
--- NOTE | 2017-04-30 23:50 | ED ---
Dra Jimenez Angela, scribenid for Damien Linares on 04/30/17 at 2013 . HPI Febrile Illness - HPI Summary HPI Summary: This pt is a 67 y/o male presenting to [facility] c/o fever since early this evening today at 1800. Pt notes that his fever was 100.9F at around 1800 and reports he is supposed to call Dr. Herring for any fever higher than 100.4F. Pt called Dr. Herring and he wanted him to come over to the ED to check his WBC count. Since 1800 today, his temperature has been increasing and decreasing. Pt additionally c/o cough with a lot of phlegm (although phlegm is typical for him). He denies taking Tylenol today and has only taken his regular medications. Pt is on chemo for esophageal cancer and now has spread to his liver. His last chemo was 3 weeks ago, and his next one is tomorrow. Pt denies sore throat, ear pain, chest pain. - History of Current Complaint Chief Complaint: EDFever Time Seen by Provider: 04/30/17 20:00 Hx Obtained From: Patient Onset/Duration: Started Hours Ago Timing: Lasting Hours Pain Intensity: 0 Associated Signs and Symptoms: Cough - Additional Pertinent History Primary Care Physician: [facility] - Allergy/Home Medications Allergies/Adverse Reactions: Allergies Allergy/AdvReac Type Severity Reaction Status Date / Time Sotalol AdvReac Intermediate See Comment Verified 04/30/17 19:47 PMH/Surg Hx/FS Hx/Imm Hx Endocrine/Hematology History: Reports: Hx Anticoagulant Therapy - Predaxa, Hx Blood Transfusions, Hx Diabetes, Hx Anemia Denies: Hx Blood Disorders, Hx Bone Marrow Disease, Hx Systemic Lupus Erythematosus, Hx Sickle Cell Disease, Hx Thyroid Disease, Hx Unexplained Bleeding, Other Endocrine/Hematological Disorders Cardiovascular History: Reports: Hx Angina, Hx Auto Implanted Cardiovert Defib, Hx Cardiac Arrest, Hx Cardiomegaly, Hx Congestive Heart Failure, Hx Coronary Artery Disease, Hx Hypotension, Hx Hypertension, Hx Pacemaker/ICD - PACER/ICD- NO MRIs, Other Cardiovascular Problems/Disorders - EF 46% per pt. Denies: Hx Aneurysm, Hx Angioplasty, Hx Congenital Heart Disease, Hx Deep Vein Thrombosis, Hx Embolism, Hx Hypercholesterolemia, Hx Peripheral Vascular Disease, Hx Rheumatic Fever, Hx Syncope, Hx Valvular Heart Disease Respiratory History: Reports: Hx Pneumonia Denies: Hx Asthma, Hx Chronic Bronchitis, Hx Chronic Obstructive Pulmonary Disease (COPD), Hx Cystic Fibrosis, Hx Lung Cancer, Hx Pleural Effusion, Hx Pulmonary Edema, Hx Pulmonary Embolism, Hx Seasonal Allergies, Hx Sleep Apnea, Other Respiratory Problems/Disorders GI History: Reports: Hx Gastrointestinal Bleed, Other GI Disorders - 1983 hx of chronic Gastrisis Denies: Hx Cirrhosis, Hx Crohn's Disease, Hx Diverticulosis, Hx Gall Bladder Disease, Hx Gastroesophageal Reflux Disease, Hx Hiatal Hernia, Hx Irritable Bowel, Hx Jaundice, Hx Obstructive Bowel, Hx Ileostomy, Hx Pyloric Stenosis, Hx Ulcer History: Denies: Hx Acute Renal Failure, Hx Benign Prostatic Hyperplasia, Hx Chronic Renal Failure, Hx Dialysis, Hx Kidney Infection, Hx Kidney Stones, Hx Renal Disease, Other Problems/Disorders Musculoskeletal History: Reports: Hx Back Problems Denies: Hx Arthritis, Hx Bursitis, Hx Congenital Bone Abnormalities, Hx Fibromyalgia, Hx Gout, Hx Orthopedic Injury, Hx Osteoporosis, Hx Scoliosis, Hx Tendonitis, Other Musculoskeletal History Sensory History: Reports: Hx Contacts or Glasses, Hx Hearing Problem - high frequency hearing loss Denies: Hx Cataracts, Hx Eye Injury, Hx Eye Prosthesis, Hx Glaucoma, Hx Legally Blind, Hx Macular Degeneration, Hx Vision Problem, Hx Deafness, Hx Hearing Aid, Other Sensory Impairments Opthamlomology History: Reports: Hx Contacts or Glasses Denies: Hx Cataracts, Hx Eye Injury, Hx Eye Prosthesis, Hx Glaucoma, Hx Legally Blind, Hx Macular Degeneration, Hx Vision Problem, Other Sensory Impairments Neurological History: Reports: Other Neuro Impairments/Disorders - vertigo Denies: Hx Dementia, Hx Developmental Delay, Hx Headaches, Hx Migraine, Hx Nerve Disease, Hx Seizures, Hx Spinal Cord Injury, Hx Transient Ischemic Attacks (TIA) Psychiatric History: Reports: Hx Anxiety Denies: Hx Attention Deficit Hyperactivity Disorder, Hx Eating Disorder, Hx Depression, Hx Panic Disorder, Hx Post Traumatic Stress Disorder, Hx Inpatient Treatment, Hx Community Mental Health Tx, Hx Schizophrenia, Hx Bipolar Disorder , Hx Suicide Attempt, Hx of Violent Episodes Against Others, Hx Substance Abuse , Other Psychiatric Issues/Disorders - Cancer History Cancer Type, Location and Year: esophageal CA May 2016 diagnosed Hx Chemotherapy: Yes Hx Radiation Therapy: Yes Hx Palliative Cancer Treatment: No - Surgical History Surgery Procedure, Year, and Place: Stent placement february 10, 2011 RCA. Vasectomy. ICD 12/2013 Hx Anesthesia Reactions: No - Immunization History Date of Tetanus Vaccine: UTD Date of Influenza Vaccine: NONE Infectious Disease History: No Infectious Disease History: Denies: Hx Clostridium Difficile, Hx Hepatitis, Hx Human Immunodeficiency Virus (HIV), Hx of Known/Suspected MRSA, Hx Shingles, Hx Tuberculosis, Hx Known/ Suspected VRE, Hx Known/Suspected VRSA, History Other Infectious Disease, Traveled Outside the [place] in Last 30 Days - Family History Known Family History: Positive: Cardiac Disease - [place], Diabetes, Other - cancer - Social History Alcohol Use: None Alcohol Amount: 1 BEER EVERY 2 WEEKS Substance Use Type: Reports: None Smoking Status (MU): Former Smoker Type: Cigarettes Amount Used/How Often: UP TO 3 PPD FOR 13 YRS Length of Time of Smoking/Using Tobacco: 13 YRS Have You Smoked in the Last Year: No Review of Systems Positive: Fever. Negative: Chills Negative: Sore Throat Negative: Chest Pain Positive: Cough. Negative: Shortness Of Breath Negative: Abdominal Pain Genitourinary: Negative Skin: Negative All Other Systems Reviewed And Are Negative: Yes Physical Exam Triage Information Reviewed: Yes Vital Signs On Initial Exam: Initial Vitals Temp Pulse Resp BP Pulse Ox 100.5 F 98 16 145/82 96 04/30/17 19:48 04/30/17 19:48 04/30/17 19:48 04/30/17 19:48 04/30/17 19:48 Vital Signs Reviewed: Yes Appearance: Positive: Well-Appearing, No Pain Distress Skin: Positive: Warm, Skin Color Reflects Adequate Perfusion, Dry Head/Face: Positive: Normal Head/Face Inspection Eyes: Positive: EOMI, SAMANTHA ENT: Positive: Normal ENT inspection Neck: Positive: Supple, Nontender Respiratory/Lung Sounds: Positive: Clear to Auscultation, Breath Sounds Present Cardiovascular: Positive: RRR, Pulses are Symmetrical in both Upper and Lower Extremities Abdomen Description: Positive: No Organomegaly, Soft Bowel Sounds: Positive: Present Musculoskeletal: Positive: Normal, Strength/ROM Intact, Other - port on right chest Neurological: Positive: Normal, Sensory/Motor Intact, Alert, Oriented to Person Place, Time Diagnostics - Vital Signs Vital Signs Temp Pulse Resp BP Pulse Ox 04/30/17 19:48 100.5 F 98 16 145/82 96 - Laboratory Result Diagrams: 04/30/17 20:35 04/30/17 20:35 Lab Statement: Any lab studies that have been ordered have been reviewed, and results considered in the medical decision making process. - Radiology chest XR Xray Interpretation: No Acute Changes - IMPRESSION: No active cardiopulmonary disease is noted. ED physician has reviewed this radiology report and agrees. Radiology Interpretation Completed By: Radiologist Course/Dx - Course Assessment/Plan: Pt is a 67 y/o male, with esophageal CA currently in chemo, presenting to [facility] c/o fever of 100.9 since today 1800. Pt additionally c/o cough. Bloodwork and chest XR were obtained. Chest XR is negative. Pt will be discharged with follow up from Dr. Herring and primary care provider. - Diagnoses Provider Diagnoses: Fever, Esophageal cancer Discharge - Discharge Plan Condition: Stable Disposition: HOME Patient Education Materials: Fever in Adults (ED) Referrals: Dayne Barillas MD [Primary Care Provider] - 3 Days Derrek Herring MD [Medical Doctor] - 3 Days Additional Instructions: Please follow up with your primary care provider and Dr. Herring. The documentation as recorded by the Dar mckeon Angela accurately reflects the service I personally performed and the decisions made by Vijay dupree Emmanuel.
[2017-05-01 00:03] VITALS: BP 149/70
== END 2017-05-01 00:02 | disposition home or self-care (01) ==
LOC: ED 19:33
DX: R50.9 Fever, unspecified (principal); C15.9 Malignant neoplasm of esophagus, unspecified; Z79.01 Long term (current) use of anticoagulants
CPT/HCPCS: 36415; 71010; 80053; 81003; 81015; 83605; 85025; 85610; 85730; 87040; 99283; A9270-GY

== ENCOUNTER 2017-06-29 14:16 | Inpatient (IN) | payer MEDICARE, OTHER ==
[2017-06-29] MEDS ORDERED: NS 0.9% 1000 ML* 1,000 ML IV ONE (14:58)
[2017-06-29 15:13] LABS: Hematocrit 22 % (42-52); Hemoglobin 7.4 g/dl (14.0-18.0); Mean Corpuscular HGB Conc 33 g/dl (31-36); Mean Corpuscular Hemoglobin 28 pg (27-31); Mean Corpuscular Volume 84 fL (80-94); Mean Platelet Volume 8 um3 (7.4-10.4); Red Blood Count 2.67 10^6/ul (4.0-5.4); Red Cell Distribution Width 20 % (10.5-15); White Blood Count 0.4 10^3/ul (3.5-10.8)
[2017-06-29 15:14] LABS: Comments Flag Yes
[2017-06-29 15:15] LABS: Add Diff/Slide Review? Slide Review Added
[2017-06-29 15:26] LABS: Albumin 3.4 g/dL (3.2-5.2); BUN/Creatinine Ratio 17.6 (8-20); C Reactive Protein 53.76 mg/L (< 5.00); Calcium 9.1 mg/dL (8.6-10.3); EGFR African American 88.2 (>60); EGFR Non-African American 68.6 (>60); Potassium 3.8 mmol/L (3.5-5.0); Total Protein 6.4 g/dL (6.4-8.9)
[2017-06-29] MEDS ORDERED: Cefepime(*) 2 GM in NS 0.9% 50 ML* 50 ML IVPB ONE (15:38)
[2017-06-29] MEDS ORDERED: NS 0.9% 50 ML* 50 ML ONE (16:00)
[2017-06-29] MEDS ORDERED: Cefepime 2 GM in Dextrose(*) 2 GM/50 ML BAG IV ONE (16:03)
[2017-06-29] MEDS ORDERED: Dextrose 50% Syringe 50 ML* 25 GM/50 ML SYRINGE IV PUSH PRN (16:31)
[2017-06-29] MEDS ORDERED: Ondansetron INJ* 2 MG/ML VIAL IV PRN (16:32)
[2017-06-29] MEDS ORDERED: Acetaminophen TAB* 325 MG PO PRN (16:32)
[2017-06-29] MEDS ORDERED: Nitroglycerin TAB 0.4 MG* 0.4 MG TAB SL PRN (16:33)
--- NOTE | 2017-06-29 16:45 | RAD ---
INDICATION: Fever COMPARISON: Most recent comparison chest x-ray is dated April 30, 2017 TECHNIQUE: PA and lateral views of the chest were obtained. FINDINGS: Again seen is a right internal jugular vein Mediport and a left upper chest single lead cardiac device. The heart and mediastinum are normal in size and contour. The lungs are grossly clear. There is no evidence of large pleural effusion. Visualized bones are normal for the patient's age. There is no radiographic evidence of free air beneath the diaphragm IMPRESSION: No radiographic evidence of acute cardiopulmonary disease.
[2017-06-29 16:47] LABS: Urine Bilirubin Negative (Negative); Urine Glucose Negative (Negative); Urine Nitrite Negative (Negative)
[2017-06-29] MEDS ORDERED: Enoxaparin(*) 40 MG/0.4 ML SYR SUBCUT SCH (17:00)
[2017-06-29] MEDS ORDERED: Sucralfate SUSP 1 GM/10 ml 10 ML UDC PO SCH (17:00)
[2017-06-29] MEDS ORDERED: CEFEPIME* 2 GM in Dextrose* 50 ml IV ONE (17:00)
[2017-06-29] MEDS: Allopurinol TAB* 100 MG PO SCH (17:46)
[2017-06-29] MEDS: Digoxin TAB* 0.25 MG PO SCH (17:46)
[2017-06-29] MEDS: Atropine 1% (ORAL/SL)* 15 ML BTL SL PRN ×2 (17:53→21:10)
[2017-06-29] MEDS: NS 0.9% 1000 ML* 1,000 ML IV SCH (17:58)
[2017-06-29] MEDS ORDERED: Insulin GLARGINE(*) 1 UNITS UNIT SUBCUT SCH (18:00)
[2017-06-29] MEDS ORDERED: Omeprazole CAP* 20 MG PO SCH (18:00)
--- NOTE | 2017-06-29 19:37 | HP ---
CC: Dr. Herring* HISTORY AND PHYSICAL: DATE OF ADMISSION: 06/29/17 TIME OF EVALUATION: 3:45 p.m. ONCOLOGIST: Dr. Herring. CHIEF COMPLAINT: "I had a fever." HISTORY OF PRESENT ILLNESS: Mr. Lawrence is a 67-year-old male with a past medical history of metastatic esophageal cancer, atrial fibrillation, congestive heart failure with ejection fraction 15% status post ICD, coronary artery disease, status post stent in 2010, type 2 diabetes, and gout, who presented to the emergency room with complaints of fever. The patient has metastatic disease and he is now on his third regimen of chemotherapy (he is receiving FOLFIRI). The patient states his last infusion was on 06/19/17 and he had his usual side effects of nausea and weakness, but today he was wearing a heating blanket, but his felt that he was really warm and checked his temperature and it was 102. So he came to the emergency room for further evaluation. He complains of significant sialorrhea, but this is not new to him. He denies cough, change in his shortness of breath, dysuria. He did have some nausea and diarrhea, but also states that this is not unusual after chemo. He denies chest pain, palpitations, headache, or other complaints. He also states that he has had issues with anemia and GI bleed in the past and that this is now much improved. He states that his stool has been brown with no signs of active bleeding. PAST MEDICAL HISTORY: 1. Atrial fibrillation. 2. CHF with ejection fraction of 15% status post ICD. 3. Coronary artery disease status post stent. 4. Type 2 diabetes. 5. Gout. 6. Metastatic esophageal cancer. 7. Prior history of GI bleed. 8. 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 MEDICATIONS: 1. Allopurinol 100 mg p.o. q.p.m. 2. Atorvastatin 20 mg p.o. at bedtime. 3. Digoxin 0.25 mg alternating with 0.125 mg every other day. 4. Lorazepam 0.5 mg p.o. b.i.d. as needed for anxiety. 5. Magnesium oxide 400 mg p.o. b.i.d. 6. Metoprolol tartrate 50 mg p.o. b.i.d. 7. Nitroglycerin 0.4 mg sublingual q.5 minutes as needed for chest pain, maximum 3 doses. 8. Ondansetron ODT 4 mg p.o. q.4 hours p.r.n. nausea. 9. Oxycodone 10 mg p.o. q.4 hours p.r.n. pain. 10. Pantoprazole 40 mg p.o. b.i.d. 11. Sucralfate 1 g p.o. t.i.d. with meals. ALLERGIES: With SOTALOL, the patient had shortness of breath. FAMILY HISTORY: Father at age 67 of CHF and leukemia. Mother at age 43 of multiple myeloma. Brother had CO and sister has breast cancer. SOCIAL HISTORY: The patient was a smoker, 3 packs a day for 35 years and he quit 5 years ago. He is a former drinker. Denies drug use. Surrogate decision maker is his , Romelia Rajan, phone number [phone]. REVIEW OF SYSTEMS: A 14-point review of systems was performed and all the pertinent negative and positive findings are in the HPI. PHYSICAL EXAMINATION GENERAL: The patient is a pleasant elderly male, sitting up in the ED stretcher , in no acute distress. VITAL SIGNS: Temperature 98.8, heart rate is 92, respiratory rate is 20, oxygen saturation is 98% on room air, blood pressure is 106/70. HEENT: Pupils are equal. Moist mucous membranes. No oral sores. CHEST: Breath sounds clear bilaterally. No added sounds. CVS: Normal S1, S2. Regular rate and rhythm. ABDOMEN: Soft. Bowel sounds are present. EXTREMITIES: No edema. NEUROLOGIC: He is alert, awake, oriented x3. Able to move all 4 extremities. LABORATORY AND IMAGING DATA: The patient had a CBC that showed a WBC of 0.4, hemoglobin of 7.4, hematocrit of 22, platelet count of with ANC of 0.1. Chemistry showed a sodium of 131, potassium 3.8, chloride of 99, bicarb of 24, BUN of 19, creatinine of 1.08, glucose of 191, lactic acid of 1.7, calcium 9.1. LFTs are normal except for alk phos of 169. CRP 53. BNP is 441. Urinalysis was negative. Chest x-ray shows ICD and a port in place, but no acute cardiopulmonary disease. ASSESSMENT AND PLAN: Mr. Lawrence is a 67-year-old male with a past medical history of type 2 diabetes, congestive heart failure with ejection fraction of 15% status post ICD, coronary artery disease status post stent, type 2 diabetes , peripheral neuropathy secondary to Taxol, metastatic esophageal cancer, who presents to the emergency room with complaints of fever, found to be neutropenic 10 days after his last chemotherapy with FOLFIRI. 1. Neutropenic fever. The patient was already pancultured in the emergency room and he will be treated empirically with cefepime. He will be admitted under Dr. Herring's service and he will take over his care tomorrow. At this point , there is no clear source of infection as his urinalysis and chest x-ray are normal. 2. Anemia. Likely secondary to his chemotherapy at this time as the patient states he has no signs of gastrointestinal bleed at this point. We will continue to monitor his H and H and transfuse if his hemoglobin is below 7. 3. Type 2 diabetes. We will continue Lantus and lispro sliding scale. 4. Congestive heart failure, appears to be stable at this time. The patient has no complaints of shortness of breath. His chest x-ray does not show congestion. We will just continue to monitor at this point. 5. Atrial fibrillation. The patient's heart rate is regular at this time. We will continue his metoprolol. He is off anticoagulation due to his prior episodes of gastrointestinal bleed. 6. DVT prophylaxis. The patient has a score of 4 on the DVT Prophylaxis Risk Assessment Guide what puts him at high risk for DVT, but with his history of gastrointestinal bleed and significant anemia, I think pharmacological prophylaxis is contraindicated and he will have SCDs only for now. If Dr. Herring sees fit, he can always start a pharmacological prophylaxis but I would like to see the trend of his H and H first. 7. Code status is full. TIME SPENT: Approximately 60 minutes was spent with patient and 's interview, medical records review, physical examination and to complete this admission, more than half of this time was spent [id number] with patient and coordination of care. [id number]/[facility] #: [id number] MTDD
[2017-06-29] MEDS: Atorvastatin* 20 MG TAB PO SCH (21:02)
[2017-06-29] MEDS: Metoprolol Tartrate TAB* 50 mg PO SCH (21:02)
[2017-06-29] MEDS: Magnesium Oxide TAB* 400 MG PO SCH (21:02)
[2017-06-29] MEDS: oxyCODONE TAB* 5 MG TAB PO PRN (21:02)
[2017-06-29] MEDS: Insulin LISPRO* 1 UNITS UNIT SUBCUT SCH (21:04)
[2017-06-29] MEDS: Cefepime 2 GM in Dextrose(*) 2 GM/50 ML BAG IV SCH (23:48)
[2017-06-30] MEDS: NS 0.9% 1000 ML* 1,000 ML IV SCH ×2 (04:36→13:35)
[2017-06-30 05:00] LABS: Hematocrit 19 % (42-52); Mean Corpuscular HGB Conc 32 g/dl (31-36); Mean Corpuscular Hemoglobin 27 pg (27-31); Mean Corpuscular Volume 84 fL (80-94); Mean Platelet Volume 9 um3 (7.4-10.4); Red Blood Count 2.22 10^6/ul (4.0-5.4); Red Cell Distribution Width 20 % (10.5-15); White Blood Count 0.3 10^3/ul (3.5-10.8)
[2017-06-30 05:01] LABS: Comments Flag Yes
[2017-06-30 05:02] LABS: Add Diff/Slide Review? Manual Diff Added
[2017-06-30 05:05] LABS: BUN/Creatinine Ratio 16.2 (8-20); Calcium 8.7 mg/dL (8.6-10.3); EGFR African American 97.6 (>60); EGFR Non-African American 75.9 (>60); Potassium 3.6 mmol/L (3.5-5.0)
[2017-06-30] MEDS: Atropine 1% (ORAL/SL)* 15 ML BTL SL PRN ×4 (07:12→21:03)
[2017-06-30] MEDS: Insulin LISPRO* 1 UNITS UNIT SUBCUT SCH ×7 (07:13→21:05)
[2017-06-30 07:51] LABS: Add Path Review? YES; Eosinophils % 16 % (0-6); Hypochromasia 2+; Neutrophil % 20 % (38-83)
--- NOTE | 2017-06-30 08:48 | ED ---
Dar Jimenez Angela, scribed for Lawrence Van MD on 06/29/17 at 1454 . HPI Febrile Illness - HPI Summary HPI Summary: This pt is a 67 y/o male, with PMHx of esophageal CA, accompanied by his presenting to [facility] c/o fever. reports she took his temperature at home and it was 102.2 F. She also took his temperature in the ED with her thermometer and it was 101 F. states the pt has not been feeling well all week and has had SOB. Pt's last chemotherapy was on 06/19/17. Pt's WBC and platelet count were low and he was given a shot 3 days ago. Pt notes he has spent 15 hours under a heating blanket to his chronic peripheral neuropathy. He is being followed up by Dr. Herring. - History of Current Complaint Chief Complaint: EDFever Hx Obtained From: Patient, Family/Supervisor Sound Technician - Onset/Duration: Started Days Ago, Still Present Timing: Constant, Lasting Days Temperature: 99 F - in the ED Pain Intensity: 0 Associated Signs and Symptoms: SOB - Additional Pertinent History Primary Care Physician: [facility] - Allergy/Home Medications Allergies/Adverse Reactions: Allergies Allergy/AdvReac Type Severity Reaction Status Date / Time Sotalol AdvReac Intermediate See Comment Verified 04/30/17 19:47 PMH/Surg Hx/FS Hx/Imm Hx Endocrine/Hematology History: Reports: Hx Anticoagulant Therapy - Predaxa, Hx Blood Transfusions, Hx Diabetes, Hx Anemia Denies: Hx Blood Disorders, Hx Bone Marrow Disease, Hx Systemic Lupus Erythematosus, Hx Sickle Cell Disease, Hx Thyroid Disease, Hx Unexplained Bleeding, Other Endocrine/Hematological Disorders Cardiovascular History: Reports: Hx Angina, Hx Auto Implanted Cardiovert Defib, Hx Cardiac Arrest, Hx Cardiomegaly, Hx Congestive Heart Failure, Hx Coronary Artery Disease, Hx Hypotension, Hx Hypertension, Hx Pacemaker/ICD - PACER/ICD- NO MRIs, Other Cardiovascular Problems/Disorders - EF 46% per pt. Denies: Hx Aneurysm, Hx Angioplasty, Hx Congenital Heart Disease, Hx Deep Vein Thrombosis, Hx Embolism, Hx Hypercholesterolemia, Hx Peripheral Vascular Disease, Hx Rheumatic Fever, Hx Syncope, Hx Valvular Heart Disease Respiratory History: Reports: Hx Pneumonia Denies: Hx Asthma, Hx Chronic Bronchitis, Hx Chronic Obstructive Pulmonary Disease (COPD), Hx Cystic Fibrosis, Hx Lung Cancer, Hx Pleural Effusion, Hx Pulmonary Edema, Hx Pulmonary Embolism, Hx Seasonal Allergies, Hx Sleep Apnea, Other Respiratory Problems/Disorders GI History: Reports: Hx Gastrointestinal Bleed, Other GI Disorders - 1983 hx of chronic Gastrisis Denies: Hx Cirrhosis, Hx Crohn's Disease, Hx Diverticulosis, Hx Gall Bladder Disease, Hx Gastroesophageal Reflux Disease, Hx Hiatal Hernia, Hx Irritable Bowel, Hx Jaundice, Hx Obstructive Bowel, Hx Ileostomy, Hx Pyloric Stenosis, Hx Ulcer History: Denies: Hx Acute Renal Failure, Hx Benign Prostatic Hyperplasia, Hx Chronic Renal Failure, Hx Dialysis, Hx Kidney Infection, Hx Kidney Stones, Hx Renal Disease, Other Problems/Disorders Musculoskeletal History: Reports: Hx Back Problems Denies: Hx Arthritis, Hx Bursitis, Hx Congenital Bone Abnormalities, Hx Fibromyalgia, Hx Gout, Hx Orthopedic Injury, Hx Osteoporosis, Hx Scoliosis, Hx Tendonitis, Other Musculoskeletal History Sensory History: Reports: Hx Contacts or Glasses, Hx Hearing Problem - high frequency hearing loss Denies: Hx Cataracts, Hx Eye Injury, Hx Eye Prosthesis, Hx Glaucoma, Hx Legally Blind, Hx Macular Degeneration, Hx Vision Problem, Hx Deafness, Hx Hearing Aid, Other Sensory Impairments Opthamlomology History: Reports: Hx Contacts or Glasses Denies: Hx Cataracts, Hx Eye Injury, Hx Eye Prosthesis, Hx Glaucoma, Hx Legally Blind, Hx Macular Degeneration, Hx Vision Problem, Other Sensory Impairments Neurological History: Reports: Other Neuro Impairments/Disorders - vertigo Denies: Hx Dementia, Hx Developmental Delay, Hx Headaches, Hx Migraine, Hx Nerve Disease, Hx Seizures, Hx Spinal Cord Injury, Hx Transient Ischemic Attacks (TIA) Psychiatric History: Reports: Hx Anxiety Denies: Hx Attention Deficit Hyperactivity Disorder, Hx Eating Disorder, Hx Depression, Hx Panic Disorder, Hx Post Traumatic Stress Disorder, Hx Inpatient Treatment, Hx Community Mental Health Tx, Hx Schizophrenia, Hx Bipolar Disorder , Hx Suicide Attempt, Hx of Violent Episodes Against Others, Hx Substance Abuse , Other Psychiatric Issues/Disorders - Cancer History Cancer Type, Location and Year: 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 Vasectomy. ICD 12/2013 Hx Anesthesia Reactions: No - Immunization History Date of Tetanus Vaccine: UTD Date of Influenza Vaccine: NONE Infectious Disease History: No Infectious Disease History: Denies: Hx Clostridium Difficile, Hx Hepatitis, Hx Human Immunodeficiency Virus (HIV), Hx of Known/Suspected MRSA, Hx Shingles, Hx Tuberculosis, Hx Known/ Suspected VRE, Hx Known/Suspected VRSA, History Other Infectious Disease, Traveled Outside the [place] in Last 30 Days - Family History Known Family History: Positive: Cardiac Disease - [place], Diabetes, Other - cancer - Social History Alcohol Use: None Alcohol Amount: 1 BEER EVERY 2 WEEKS Substance Use Type: Reports: None Smoking Status (MU): Former Smoker Type: Cigarettes Amount Used/How Often: UP TO 3 PPD FOR 13 YRS Length of Time of Smoking/Using Tobacco: 13 YRS Have You Smoked in the Last Year: No Review of Systems Positive: Fever, Chills Eyes: Negative ENT: Negative Positive: Shortness Of Breath Neurological: Other - peripheral neuropathy, chronic All Other Systems Reviewed And Are Negative: Yes Physical Exam - Summary Physical Exam Summary: VITAL SIGNS: Reviewed. GENERAL: Patient is a well-developed and nourished male who is lying comfortable in the stretcher. Patient is not in any acute respiratory distress. HEAD AND FACE: No signs of trauma. No ecchymosis, hematomas or skull depressions. No sinus tenderness. EYES: PERRLA, EOMI x 2, No injected conjunctiva, no nystagmus. EARS: Hearing grossly intact. Ear canals and tympanic membranes are within normal limits. MOUTH: Oropharynx within normal limits. NECK: Supple, trachea is midline, no adenopathy, no JVD, no carotid bruit, no c- spine tenderness, neck with full ROM. CHEST: Symmetric, no tenderness at palpation. Port on the left side of the chest. LUNGS: Clear to auscultation bilaterally. No wheezing or crackles. CVS: Regular rate and rhythm, S1 and S2 present, no murmurs or gallops appreciated. ABDOMEN: Soft, non-tender. No signs of distention. No rebound no guarding, and no masses palpated. Bowel sounds are normal. EXTREMITIES: FROM in all major joints, no edema, no cyanosis or clubbing. NEURO: Alert and oriented x 3. No acute neurological deficits. Speech is normal and follows commands. SKIN: Dry and warm Triage Information Reviewed: Yes Vital Signs On Initial Exam: Initial Vitals Temp Pulse Resp BP Pulse Ox 99 F 88 20 114/67 98 06/29/17 14:17 06/29/17 14:17 06/29/17 14:17 06/29/17 14:17 06/29/17 14:17 Vital Signs Reviewed: Yes Diagnostics - Vital Signs Vital Signs Temp Pulse Resp BP Pulse Ox 06/29/17 14:17 99 F 88 20 114/67 98 - Laboratory Lab Results: Lab Results 06/29/17 06/29/17 06/29/17 Range/Units 15:00 15:00 15:00 WBC 0.4 L (3.5-10.8) 10^3/ul RBC 2.67 L (4.0-5.4) 10^6/ul Hgb 7.4 L (14.0-18.0) g/dl Hct 22 L (42-52) % MCV 84 (80-94) fL MCH 28 (27-31) pg MCHC 33 (31-36) g/dl RDW 20 H (10.5-15) % Plt Count 31 L (150-450) 10^3/ul MPV 8 (7.4-10.4) um3 Neut % (Auto) 27.5 L (38-83) % Lymph % (Auto) 57.8 H (25-47) % Rush % (Auto) 5.6 (1-9) % Eos % (Auto) 9.0 H (0-6) % Baso % (Auto) 0.1 (0-2) % Absolute Neuts (auto) 0.1 L* (1.5-7.7) 10^3/ul Absolute Lymphs (auto) 0.2 L (1.0-4.8) 10^3/ul Absolute Monos (auto) 0 (0-0.8) 10^3/ul Absolute Eos (auto) 0 (0-0.6) 10^3/ul Absolute Basos (auto) 0 (0-0.2) 10^3/ul Absolute Nucleated RBC 0 10^3/ul Nucleated RBC % 0 Sodium 131 L (133-145) mmol/L Potassium 3.8 (3.5-5.0) mmol/L Chloride 99 L (101-111) mmol/L Carbon Dioxide 24 (22-32) mmol/L Anion Gap 8 (2-11) mmol/L BUN 19 (6-24) mg/dL Creatinine 1.08 (0.67-1.17) mg/dL Est GFR ( Amer) 88.2 (>60) Est GFR (Non-Af Amer) 68.6 (>60) BUN/Creatinine Ratio 17.6 (8-20) Glucose 191 H (70-100) mg/dL Lactic Acid (0.5-2.0) mmol/L Calcium 9.1 (8.6-10.3) mg/dL Total Bilirubin 1.00 (0.2-1.0) mg/dL AST 14 (13-39) U/L ALT 11 (7-52) U/L Alkaline Phosphatase 169 H (34-104) U/L C-Reactive Protein 53.76 H (< 5.00) mg/L B-Natriuretic Peptide 441 H ( - 100) pg/mL Total Protein 6.4 (6.4-8.9) g/dL Albumin 3.4 (3.2-5.2) g/dL Globulin 3.0 (2-4) g/dL Albumin/Globulin Ratio 1.1 (1-3) 06/29/17 Range/Units 15:00 WBC (3.5-10.8) 10^3/ul RBC (4.0-5.4) 10^6/ul Hgb (14.0-18.0) g/dl Hct (42-52) % MCV (80-94) fL MCH (27-31) pg MCHC (31-36) g/dl RDW (10.5-15) % Plt Count (150-450) 10^3/ul MPV (7.4-10.4) um3 Neut % (Auto) (38-83) % Lymph % (Auto) (25-47) % Rush % (Auto) (1-9) % Eos % (Auto) (0-6) % Baso % (Auto) (0-2) % Absolute Neuts (auto) (1.5-7.7) 10^3/ul Absolute Lymphs (auto) (1.0-4.8) 10^3/ul Absolute Monos (auto) (0-0.8) 10^3/ul Absolute Eos (auto) (0-0.6) 10^3/ul Absolute Basos (auto) (0-0.2) 10^3/ul Absolute Nucleated RBC 10^3/ul Nucleated RBC % Sodium (133-145) mmol/L Potassium (3.5-5.0) mmol/L Chloride (101-111) mmol/L Carbon Dioxide (22-32) mmol/L Anion Gap (2-11) mmol/L BUN (6-24) mg/dL Creatinine (0.67-1.17) mg/dL Est GFR ( Amer) (>60) Est GFR (Non-Af Amer) (>60) BUN/Creatinine Ratio (8-20) Glucose (70-100) mg/dL Lactic Acid 1.7 (0.5-2.0) mmol/L Calcium (8.6-10.3) mg/dL Total Bilirubin (0.2-1.0) mg/dL AST (13-39) U/L ALT (7-52) U/L Alkaline Phosphatase (34-104) U/L C-Reactive Protein (< 5.00) mg/L B-Natriuretic Peptide ( - 100) pg/mL Total Protein (6.4-8.9) g/dL Albumin (3.2-5.2) g/dL Globulin (2-4) g/dL Albumin/Globulin Ratio (1-3) Result Diagrams: 06/30/17 04:42 06/30/17 04:42 Lab Statement: Any lab studies that have been ordered have been reviewed, and results considered in the medical decision making process. - Radiology Chest XR Xray Interpretation: No Acute Changes - IMPRESSION: No radiographic evidence of acute cardiopulmonary disease. ED physician has reviewed this radiology report and agrees. Radiology Interpretation Completed By: Radiologist Re-Evaluation - Re-Evaluation First Eval Re-Evaluation Time: 15:40 Comment: I reviewed the lab results with the pt. I discussed the plan to admit with the pt and . They are agreeable with the plan. Course/Dx - Course Assessment/Plan: This pt is a 67 y/o male, with PMHx of esophageal CA, accompanied by his presenting to [facility] c/o fever. reports she took his temperature at home and it was 102.2 F. She also took his temperature in the ED with her thermometer and it was 101 F. states the pt has not been feeling well all week and has had SOB. Pt's last chemotherapy was on 06/19/17. Pt's WBC and platelet count were low and he was given a shot 3 days ago. Pt notes he has spent 15 hours under a heating blanket to his chronic peripheral neuropathy. He is being followed up by Dr. Herring. Test results without any significant abnormalities except WBC of 0.4, hemoglobin of 7.4, and hematocrit of 22, absolute neutrophils of 0.1, BNP of 441. I discussed the test results and findings with Dr. Herring, who recommends the pt to be started on cefepime. The pt was given IV fluids and blood cultures were sent to the lab. The pt will be admitted for further work up and management. Pt is hemodynamically stable, alert and oriented x3. - Diagnoses Provider Diagnoses: Fever, Neutropenia, Anemia - Provider Notifications Discussed Care Of Patient With: Derrek Herring Time Discussed With Above Provider: 15:36 Instructed by Provider To: Other - I discussed the pt's case with Dr. Herring, he has agreed to admit the pt. Discharge - Discharge Plan Condition: Stable Disposition: ADMITTED TO [facility] The documentation as recorded by the Dar mckeon Angela accurately reflects the service I personally performed and the decisions made by me, Lawrence Van MD.
[2017-06-30] MEDS: Cefepime 2 GM in Dextrose(*) 2 GM/50 ML BAG IV SCH ×2 (09:11→15:33)
[2017-06-30] MEDS: Magnesium Oxide TAB* 400 MG PO SCH ×2 (09:12→21:02)
[2017-06-30] MEDS: Metoprolol Tartrate TAB* 50 mg PO SCH ×2 (09:12→21:05)
--- NOTE | 2017-06-30 09:32 | PN ---
Progress Note - Progress Note Date of Service: 06/30/17 SOAP: Subjective: [][place] poorly for a week then fever of 102.4 at home, no heating blanket. Low grade temp overnight. Feeling better today. Still very fatigued. Eating better. Breathing fine. No diarrhea. Acetaminophen (Tylenol Tab*) 650 mg PO Q6H PRN PRN Reason: pain/fever Last Admin: 06/29/17 17:48 Dose: 650 mg Allopurinol (Zyloprim Tab*) 100 mg PO QPM [facility] Last Admin: 06/29/17 17:46 Dose: 100 mg Atorvastatin Calcium (Lipitor*) 20 mg PO BEDTIME [facility] Last Admin: 06/29/17 21:02 Dose: 20 mg Atropine Sulfate (Atropine 1% (Oral/Sl)*) 2 drop SL Q2H PRN PRN Reason: Excess secretion Last Admin: 06/30/17 07:12 Dose: 2 drop Dextrose (D50w Syringe 50 Ml*) 12.5 gm IV PUSH .FOR FS < 60 - SS PRN PRN Reason: FS < 60 Digoxin (Lanoxin Tab*) 0.25 mg PO EVERY OTHER DAY@1700 [facility] Last Admin: 06/29/17 17:46 Dose: 0.25 mg Digoxin (Lanoxin Tab*) 0.125 mg PO EVERY OTHER DAY@1700 [facility] Cefepime HCl (Maxipime 2 Gm In Dextrose Duplex (*)) 2 gm in 50 mls @ 100 mls/ hr IV Q8H [facility] Last Admin: 06/30/17 09:11 Dose: 100 mls/hr Sodium Chloride (Ns 0.9% 1000 Ml*) 1,000 mls @ 100 mls/hr IV PER RATE [facility] Last Admin: 06/30/17 04:36 Dose: 100 mls/hr Insulin Human Lispro (Humalog*) 0 units SUBCUT ACHS [facility] PRN Reason: Protocol Last Admin: 06/30/17 07:13 Dose: Not Given Insulin Human Lispro (Humalog*) 0 units SUBCUT AC [facility] PRN Reason: Protocol Last Admin: 06/30/17 07:13 Dose: Not Given Lorazepam (Ativan Tab(*)) 0.5 mg PO BID PRN PRN Reason: ANXIETY Magnesium Oxide (Magox 400 Tab*) 400 mg PO BID [facility] Last Admin: 06/30/17 09:12 Dose: 400 mg Metoprolol Tartrate (Lopressor Tab*) 50 mg PO BID [facility] Last Admin: 06/30/17 09:12 Dose: 50 mg Nitroglycerin (Nitroglycerin Tab 0.4 Mg*) 0.4 mg SL Q5M PRN PRN Reason: ANGINA Ondansetron HCl (Zofran Inj*) 4 mg IV Q6H PRN PRN Reason: NAUSEA Oxycodone HCl (Roxycodone Tab*) 10 mg PO Q4H PRN PRN Reason: PAIN Last Admin: 06/29/17 21:02 Dose: 10 mg Objective: [] Vital Signs Temp Pulse Resp BP Pulse Ox 98.6 F 97 18 108/60 99 06/30/17 07:06 06/30/17 07:06 06/30/17 07:06 06/30/17 07:06 06/30/17 07:06 HEENT - dry mouth no thrush. no teeth. Port non tender CTA S1S2, irregular, 70s Obease, +BS and NT Tr LENIN Neuro NF Assessment: []67 year old with metastatic esophogeal cancer comes in with NF and pancytopenia after FOLFIRI, cycle 1. Plan: []1. NF. Continue Cefepime and follow. Vancomycin for additional fevers. No source. 2. Pancytopenia. Expect prolonged recover: - Tx PRBC for Hgb < 8.0 - Tx plts < 10,000 3. History of bleeding but I expect drop in Hgb over past 24 hrs is dilutional. 4. FEN. Continue IVF, regular diet, follow Mg
[2017-06-30] MEDS: Allopurinol TAB* 100 MG PO SCH (16:40)
[2017-06-30] MEDS ORDERED: Digoxin TAB* 0.125 MG PO SCH (17:00)
[2017-06-30] MEDS: Atorvastatin* 20 MG TAB PO SCH (21:02)
[2017-06-30] MEDS: oxyCODONE TAB* 5 MG TAB PO PRN (21:04)
[2017-07-01] MEDS: Cefepime 2 GM in Dextrose(*) 2 GM/50 ML BAG IV SCH ×3 (00:09→16:30)
[2017-07-01] MEDS: NS 0.9% 1000 ML* 1,000 ML IV SCH (00:12)
[2017-07-01] MEDS: oxyCODONE TAB* 5 MG TAB PO PRN ×3 (01:51→21:39)
[2017-07-01 05:51] LABS: Comments Flag Yes; Hematocrit 25 % (42-52); Hemoglobin 8.3 g/dl (14.0-18.0); Mean Corpuscular HGB Conc 34 g/dl (31-36); Mean Corpuscular Hemoglobin 28 pg (27-31); Mean Corpuscular Volume 84 fL (80-94); Mean Platelet Volume 9 um3 (7.4-10.4); Red Blood Count 2.96 10^6/ul (4.0-5.4); Red Cell Distribution Width 18 % (10.5-15)
[2017-07-01 05:52] LABS: White Blood Count 0.5 10^3/ul (3.5-10.8)
[2017-07-01 06:03] LABS: BUN/Creatinine Ratio 13.3 (8-20); Calcium 8.7 mg/dL (8.6-10.3); EGFR African American 108.9 (>60); EGFR Non-African American 84.7 (>60); Magnesium 1.8 mg/dL (1.9-2.7); Potassium 3.6 mmol/L (3.5-5.0)
[2017-07-01] MEDS: Magnesium Oxide TAB* 400 MG PO SCH ×2 (08:10→21:34)
[2017-07-01] MEDS: Metoprolol Tartrate TAB* 50 mg PO SCH ×2 (08:10→21:34)
[2017-07-01] MEDS: Atropine 1% (ORAL/SL)* 15 ML BTL SL PRN ×2 (08:10→17:56)
--- NOTE | 2017-07-01 08:31 | PN ---
Progress Note - Progress Note Date of Service: 07/01/17 SOAP: Subjective: []Feeling much better. Mouth pain is better. Eating better and feels stronger. No fevers or chills. Acetaminophen (Tylenol Tab*) 650 mg PO Q6H PRN PRN Reason: pain/fever Last Admin: 06/29/17 17:48 Dose: 650 mg Allopurinol (Zyloprim Tab*) 100 mg PO QPM [facility] Last Admin: 06/30/17 16:40 Dose: 100 mg Atorvastatin Calcium (Lipitor*) 20 mg PO BEDTIME [facility] Last Admin: 06/30/17 21:02 Dose: 20 mg Atropine Sulfate (Atropine 1% (Oral/Sl)*) 2 drop SL Q2H PRN PRN Reason: Excess secretion Last Admin: 07/01/17 08:10 Dose: 2 drop Dextrose (D50w Syringe 50 Ml*) 12.5 gm IV PUSH .FOR FS < 60 - SS PRN PRN Reason: FS < 60 Digoxin (Lanoxin Tab*) 0.25 mg PO EVERY OTHER DAY@1700 [facility] Last Admin: 06/29/17 17:46 Dose: 0.25 mg Digoxin (Lanoxin Tab*) 0.125 mg PO EVERY OTHER DAY@1700 [facility] Last Admin: 06/30/17 16:40 Dose: 0.125 mg Cefepime HCl (Maxipime 2 Gm In Dextrose Duplex (*)) 2 gm in 50 mls @ 100 mls/ hr IV Q8H [facility] Last Admin: 07/01/17 08:10 Dose: 100 mls/hr Sodium Chloride (Ns 0.9% 1000 Ml*) 1,000 mls @ 100 mls/hr IV PER RATE [facility] Last Admin: 07/01/17 00:12 Dose: 100 mls/hr Insulin Human Lispro (Humalog*) 0 units SUBCUT ACHS [facility] PRN Reason: Protocol Last Admin: 06/30/17 21:05 Dose: Not Given Insulin Human Lispro (Humalog*) 0 units SUBCUT AC [facility] PRN Reason: Protocol Last Admin: 06/30/17 15:34 Dose: Not Given Lorazepam (Ativan Tab(*)) 0.5 mg PO BID PRN PRN Reason: ANXIETY Magnesium Oxide (Magox 400 Tab*) 400 mg PO BID [facility] Last Admin: 07/01/17 08:10 Dose: 400 mg Metoprolol Tartrate (Lopressor Tab*) 50 mg PO BID [facility] Last Admin: 07/01/17 08:10 Dose: 50 mg Nitroglycerin (Nitroglycerin Tab 0.4 Mg*) 0.4 mg SL Q5M PRN PRN Reason: ANGINA Ondansetron HCl (Zofran Inj*) 4 mg IV Q6H PRN PRN Reason: NAUSEA Last Admin: 06/30/17 16:39 Dose: 4 mg Oxycodone HCl (Roxycodone Tab*) 10 mg PO Q4H PRN PRN Reason: PAIN Last Admin: 07/01/17 01:51 Dose: 10 mg Objective: [] Vital Signs Temp Pulse Resp BP Pulse Ox 98.1 F 73 16 116/67 99 07/01/17 06:36 07/01/17 06:36 07/01/17 06:36 07/01/17 06:36 07/01/17 06:36 HEENT - dry mouth no thrush. no teeth. small mouth soars are improving. Port non tender CTA S1S2, irregular, 70s Obease, +BS and NT Tr LENIN Neuro NF Assessment: []67 year old with metastatic esophogeal cancer comes in with NF and pancytopenia after FOLFIRI, cycle 1. Improving today. Plan: []1. NF. Continue Cefepime and follow. Blood counts are increased today, expect full recovery next 48 hrs. 2. DM. Has had stable blood sugars at home. Will check BS BID in hospital and hold insulin 3. Re-start PPI. 4. FEN. Hold IVF, regular diet 5. Esophageal cancer. Will hold chemotherapy next week, re-start at 75% dose of irinotecan.
[2017-07-01] MEDS: Insulin LISPRO* 1 UNITS UNIT SUBCUT SCH ×2 (08:47)
[2017-07-01] MEDS: Omeprazole CAP* 20 MG PO SCH (09:42)
[2017-07-01] MEDS: Digoxin TAB* 0.25 MG PO SCH (16:30)
[2017-07-01] MEDS: Allopurinol TAB* 100 MG PO SCH (16:30)
[2017-07-01] MEDS: Atorvastatin* 20 MG TAB PO SCH (21:34)
[2017-07-02] MEDS: Cefepime 2 GM in Dextrose(*) 2 GM/50 ML BAG IV SCH ×3 (00:01→16:12)
[2017-07-02] MEDS: oxyCODONE TAB* 5 MG TAB PO PRN ×3 (02:30→21:44)
[2017-07-02] MEDS: Atropine 1% (ORAL/SL)* 15 ML BTL SL PRN ×5 (02:31→22:27)
[2017-07-02 05:40] LABS: Albumin 3.3 g/dL (3.2-5.2); BUN/Creatinine Ratio 14.4 (8-20); Calcium 9.5 mg/dL (8.6-10.3); EGFR African American 99.9 (>60); EGFR Non-African American 77.7 (>60); Globulin 3.1 g/dL (2-4); Magnesium 1.8 mg/dL (1.9-2.7); Potassium 3.5 mmol/L (3.5-5.0); Total Bilirubin 1.2 mg/dL (0.2-1.0); Total Protein 6.4 g/dL (6.4-8.9)
[2017-07-02 05:47] LABS: Hematocrit 25 % (42-52); Hemoglobin 8.2 g/dl (14.0-18.0); Mean Corpuscular HGB Conc 33 g/dl (31-36); Mean Corpuscular Hemoglobin 28 pg (27-31); Mean Corpuscular Volume 84 fL (80-94); Mean Platelet Volume 10 um3 (7.4-10.4); Red Blood Count 2.96 10^6/ul (4.0-5.4); Red Cell Distribution Width 19 % (10.5-15)
[2017-07-02 05:49] LABS: Comments Flag Yes
[2017-07-02 05:50] LABS: White Blood Count 0.5 10^3/ul (3.5-10.8)
[2017-07-02 05:51] LABS: Add Diff/Slide Review? Slide Review Added
[2017-07-02] MEDS: Metoprolol Tartrate TAB* 50 mg PO SCH ×2 (08:02→21:45)
[2017-07-02] MEDS: Magnesium Oxide TAB* 400 MG PO SCH ×2 (08:02→21:44)
[2017-07-02] MEDS: Omeprazole CAP* 20 MG PO SCH (08:03)
--- NOTE | 2017-07-02 11:21 | PN ---
Subjective Date of Service: 07/02/17 Interval History: HOSPITALIST PROGRESS NOTE Patient seen and examined at bedside. He feels better today and is anxious for discharge. His only complaints are his known oral lesions. Family History: Unchanged from Admission Social History: Unchanged from Admission Past Medical History: Unchanged from Admission Objective Active Medications: Acetaminophen (Tylenol Tab*) 650 mg PO Q6H PRN PRN Reason: pain/fever Last Admin: 06/29/17 17:48 Dose: 650 mg Allopurinol (Zyloprim Tab*) 100 mg PO QPM [facility] Last Admin: 07/01/17 16:30 Dose: 100 mg Atorvastatin Calcium (Lipitor*) 20 mg PO BEDTIME [facility] Last Admin: 07/01/17 21:34 Dose: 20 mg Atropine Sulfate (Atropine 1% (Oral/Sl)*) 2 drop SL Q2H PRN PRN Reason: Excess secretion Last Admin: 07/02/17 09:09 Dose: 2 drop Heparin Sodium (Porcine) (Heparin Flush Port (Ivad)) 5 ml FLUSH DAILY [facility] PRN Reason: Protocol Last Admin: 07/02/17 09:09 Dose: 5 ml Cefepime HCl (Maxipime 2 Gm In Dextrose Duplex (*)) 2 gm in 50 mls @ 100 mls/ hr IV Q8H [facility] Last Admin: 07/02/17 08:02 Dose: 100 mls/hr Lorazepam (Ativan Tab(*)) 0.5 mg PO BID PRN PRN Reason: ANXIETY Magnesium Oxide (Magox 400 Tab*) 400 mg PO BID [facility] Last Admin: 07/02/17 08:02 Dose: 400 mg Metoprolol Tartrate (Lopressor Tab*) 50 mg PO BID [facility] Last Admin: 07/02/17 08:02 Dose: 50 mg Nitroglycerin (Nitroglycerin Tab 0.4 Mg*) 0.4 mg SL Q5M PRN PRN Reason: ANGINA Omeprazole (Prilosec Cap*) 20 mg PO DAILY [facility] Last Admin: 07/02/17 08:03 Dose: 20 mg Ondansetron HCl (Zofran Inj*) 4 mg IV Q6H PRN PRN Reason: NAUSEA Last Admin: 06/30/17 16:39 Dose: 4 mg Oxycodone HCl (Roxycodone Tab*) 10 mg PO Q4H PRN PRN Reason: PAIN Last Admin: 07/02/17 02:30 Dose: 10 mg Vital Signs 07/02/17 08:06 Temperature 98.3 F Pulse Rate 79 Respiratory 16 Rate Blood Pressure 115/80 (mmHg) O2 Sat by Pulse 100 Oximetry Oxygen Devices in Use Now: None Appearance: Pleasant gentleman sitting up in a chair in NAD. Eyes: No Scleral Icterus Ears/Nose/Mouth/Throat: Mucous Membranes Moist Neck: Trachea Midline Respiratory: Symmetrical Chest Expansion and Respiratory Effort, Clear to Auscultation Cardiovascular: RRR - Normal S1 and S2 Neurological: Alert and Oriented x 3, NL Muscle Strength and Tone Lines/Tubes/Other Access: Clean, Dry and Intact Peripheral IV Nutrition: Taking PO's Result Diagrams: 07/02/17 05:00 07/02/17 05:00 Assess/Plan/Problems-Billing Assessment: Mr. Lawrence is a 67yo M with PMH of Afib, CHF with EF 15%, CAD s/p stent, type 2 DM, gout, metastatic esophageal CA undergoing chemo with FOLFIRI, admitted with neutropenic fever. - Patient Problems (1) Neutropenic fever Comment: - Remains afebrile, but WBC is 0.5 and ANC is 0. - Continue Cefepime. - Anemia and thrombocytopenia are trending up, but leukopenia is lagging behind. (2) Diabetes mellitus Comment: - Glucose has been <140 off medications. - Continue to monitor. (3) Atrial fibrillation Comment: - Continue Metoprolol. (4) DVT prophylaxis Comment: - SCDs. (5) Full code status Status and Disposition: Inpatient.
[2017-07-02] MEDS: Digoxin TAB* 0.125 MG PO SCH ×2 (11:45→21:45)
[2017-07-02] MEDS: Allopurinol TAB* 100 MG PO SCH (17:05)
[2017-07-02] MEDS: Atorvastatin* 20 MG TAB PO SCH (21:43)
[2017-07-03] MEDS: Cefepime 2 GM in Dextrose(*) 2 GM/50 ML BAG IV SCH ×3 (01:11→15:58)
[2017-07-03 06:58] LABS: Hematocrit 24 % (42-52); White Blood Count 0.5 10^3/ul (3.5-10.8)
[2017-07-03 07:00] LABS: Mean Corpuscular HGB Conc 33 g/dl (31-36); Mean Corpuscular Hemoglobin 28 pg (27-31); Mean Corpuscular Volume 85 fL (80-94); Mean Platelet Volume 9 um3 (7.4-10.4); Red Blood Count 2.81 10^6/ul (4.0-5.4); Red Cell Distribution Width 19 % (10.5-15)
[2017-07-03 07:15] LABS: BUN/Creatinine Ratio 16.3 (8-20); Calcium 9.5 mg/dL (8.6-10.3); EGFR African American 98.7 (>60); EGFR Non-African American 76.8 (>60); Potassium 3.3 mmol/L (3.5-5.0)
[2017-07-03 07:16] LABS: Comments Flag Yes
[2017-07-03 07:18] LABS: Add Diff/Slide Review? Slide Review Added
[2017-07-03] MEDS: Omeprazole CAP* 20 MG PO SCH (07:47)
[2017-07-03] MEDS: oxyCODONE TAB* 5 MG TAB PO PRN ×2 (07:47→21:05)
[2017-07-03] MEDS: Metoprolol Tartrate TAB* 50 mg PO SCH ×2 (07:48→20:11)
[2017-07-03] MEDS: Magnesium Oxide TAB* 400 MG PO SCH ×2 (07:48→20:00)
[2017-07-03] MEDS: Digoxin TAB* 0.125 MG PO SCH ×2 (07:55→20:01)
[2017-07-03] MEDS: LORazepam TAB(*) 1 MG PO PRN ×2 (07:55→19:59)
[2017-07-03] MEDS: Atropine 1% (ORAL/SL)* 15 ML BTL SL PRN ×4 (07:56→19:57)
[2017-07-03 09:22] LABS: Magnesium 1.9 mg/dL (1.9-2.7)
--- NOTE | 2017-07-03 10:22 | PN ---
Progress Note - Progress Note Date of Service: 07/03/17 SOAP: Subjective: []Admitted 3 days ago with neutropenic fever following 1 day OBV. No growth on cultures thus far. Last fever >72 hours ago. Feels fine. Wants to go home. Tells me he will sit in the corner of his house with a mask on and will be safer than being here, "where everyone comes and goes." Frustrated with dietary. Feels like he is getting mixed information about plan of care. Medications: Acetaminophen (Tylenol Tab*) 650 mg PO Q6H PRN PRN Reason: pain/fever Last Admin: 06/29/17 17:48 Dose: 650 mg Allopurinol (Zyloprim Tab*) 100 mg PO QPM [facility] Last Admin: 07/02/17 17:05 Dose: 100 mg Atorvastatin Calcium (Lipitor*) 20 mg PO BEDTIME [facility] Last Admin: 07/02/17 21:43 Dose: 20 mg Atropine Sulfate (Atropine 1% (Oral/Sl)*) 2 drop SL Q2H PRN PRN Reason: Excess secretion Last Admin: 07/03/17 07:56 Dose: 2 drop Digoxin (Lanoxin Tab*) 0.125 mg PO BID [facility] Last Admin: 07/03/17 07:55 Dose: 0.125 mg Heparin Sodium (Porcine) (Heparin Flush Port (Ivad)) 5 ml FLUSH DAILY [facility] PRN Reason: Protocol Last Admin: 07/02/17 17:04 Dose: 5 ml Cefepime HCl (Maxipime 2 Gm In Dextrose Duplex (*)) 2 gm in 50 mls @ 100 mls/ hr IV Q8H [facility] Last Admin: 07/03/17 08:11 Dose: 100 mls/hr Potassium Chloride (Potassium Chloride 20 Meq/100 Ml Ivpremix*) 20 meq in 100 mls @ 50 mls/hr IV Q2H [facility] Stop: 07/03/17 12:59 Lorazepam (Ativan Tab(*)) 0.5 mg PO BID PRN PRN Reason: ANXIETY Last Admin: 07/03/17 07:55 Dose: 0.5 mg Magnesium Oxide (Magox 400 Tab*) 400 mg PO BID [facility] Last Admin: 07/03/17 07:48 Dose: 400 mg Metoprolol Tartrate (Lopressor Tab*) 50 mg PO BID [facility] Last Admin: 07/03/17 07:48 Dose: 50 mg Nitroglycerin (Nitroglycerin Tab 0.4 Mg*) 0.4 mg SL Q5M PRN PRN Reason: ANGINA Omeprazole (Prilosec Cap*) 20 mg PO DAILY [facility] Last Admin: 07/03/17 07:47 Dose: 20 mg Ondansetron HCl (Zofran Inj*) 4 mg IV Q6H PRN PRN Reason: NAUSEA Last Admin: 06/30/17 16:39 Dose: 4 mg Oxycodone HCl (Roxycodone Tab*) 10 mg PO Q4H PRN PRN Reason: PAIN Last Admin: 07/03/17 07:47 Dose: 10 mg Objective: [] Vital Signs Temp Pulse Resp BP Pulse Ox 97.3 F 86 18 120/67 99 07/03/17 07:32 07/03/17 07:32 07/03/17 07:55 07/03/17 07:32 07/03/17 07:32 A&Ox3, EOMI, PERRLA, JACKMAN, neuro grossly non-focal No teeth, mucosa dry without patching or ulcerations HRR, S1S2 present, no murmur noted LS clear bilat. throughout with even and non-labored resp. +BS, abd. soft and non-tender +PP=bilat., no edema noted Laboratory Results - last 24 hr 06/30/17 07/02/17 07/03/17 04:42 17:11 06:30 WBC 0.5 L RBC 2.81 L Hgb 8.0 L Hct 24 L MCV 85 MCH 28 MCHC 33 RDW 19 H Plt Count 43 L D MPV 9 Neut % (Auto) 3.0 L Lymph % (Auto) 58.5 H Harris % (Auto) 17.8 H Eos % (Auto) 20.6 H Baso % (Auto) 0.1 Absolute Neuts (auto) 0 L* Absolute Lymphs (auto) 0.3 L Absolute Monos (auto) 0.1 Absolute Eos (auto) 0.1 Absolute Basos (auto) 0 Absolute Nucleated RBC Not Reportable Nucleated RBC % Not Reportable Sodium Potassium Chloride Carbon Dioxide Anion Gap BUN Creatinine Est GFR ( Amer) Est GFR (Non-Af Amer) BUN/Creatinine Ratio Glucose POC Glucose (mg/dL) 152 H Calcium Magnesium Blood Type O Positive Antibody Screen Negative Crossmatch See Detail 07/03/17 07/03/17 06:30 08:18 WBC RBC Hgb Hct MCV MCH MCHC RDW Plt Count MPV Neut % (Auto) Lymph % (Auto) Harris % (Auto) Eos % (Auto) Baso % (Auto) Absolute Neuts (auto) Absolute Lymphs (auto) Absolute Monos (auto) Absolute Eos (auto) Absolute Basos (auto) Absolute Nucleated RBC Nucleated RBC % Sodium 133 Potassium 3.3 L Chloride 103 Carbon Dioxide 24 Anion Gap 6 BUN 16 Creatinine 0.98 Est GFR ( Amer) 98.7 Est GFR (Non-Af Amer) 76.8 BUN/Creatinine Ratio 16.3 Glucose 126 H POC Glucose (mg/dL) 142 H Calcium 9.5 Magnesium 1.9 Blood Type Antibody Screen Crossmatch Assessment: []67 yo male with advanced esophageal cancer s/p C1 FOLFIRI (06/19/17) admitted with neutropenic fever. No growth on cultures, however lack of WBC recovery thus far. He initially was refusing to stay despite discussion of reasoning while counts so low, however Dr. Herring stopped in to see him and he agreed. Plan: []1. IV potassium today and try PO liquid 2. Enc. ambulation as tolerated 3. Unrestricted diet, stop FS, cont. AM labs D/C once ANC >/=500
[2017-07-03] MEDS: KCL 20 MEQ/100 ML IVPREMIX* 20 MEQ/100 ML BAG IV SCH ×2 (11:14→13:51)
[2017-07-03] MEDS: Allopurinol TAB* 100 MG PO SCH (16:53)
[2017-07-03] MEDS: Atorvastatin* 20 MG TAB PO SCH (19:59)
[2017-07-04] MEDS: Cefepime 2 GM in Dextrose(*) 2 GM/50 ML BAG IV SCH ×4 (00:10→23:50)
[2017-07-04] MEDS: Atropine 1% (ORAL/SL)* 15 ML BTL SL PRN ×5 (00:11→22:00)
[2017-07-04] MEDS: LORazepam TAB(*) 1 MG PO PRN ×2 (05:49→22:37)
[2017-07-04 06:16] LABS: Hemoglobin 7.4 g/dl (14.0-18.0)
[2017-07-04 06:20] LABS: Hematocrit 22 % (42-52); Mean Corpuscular HGB Conc 34 g/dl (31-36); Mean Corpuscular Hemoglobin 29 pg (27-31); Mean Corpuscular Volume 85 fL (80-94); Mean Platelet Volume 9 um3 (7.4-10.4); Red Cell Distribution Width 18 % (10.5-15)
[2017-07-04 06:29] LABS: BUN/Creatinine Ratio 17.8 (8-20); Calcium 8.8 mg/dL (8.6-10.3); EGFR African American 108.9 (>60); EGFR Non-African American 84.7 (>60); Globulin 2.7 g/dL (2-4); Magnesium 1.9 mg/dL (1.9-2.7); Potassium 3.7 mmol/L (3.5-5.0); Total Bilirubin 0.8 mg/dL (0.2-1.0); Total Protein 5.7 g/dL (6.4-8.9)
[2017-07-04 06:44] LABS: Comments Flag Yes
[2017-07-04 06:45] LABS: Add Diff/Slide Review? Slide Review Added; White Blood Count 0.5 10^3/ul (3.5-10.8)
[2017-07-04] MEDS: Metoprolol Tartrate TAB* 50 mg PO SCH ×2 (07:58→22:02)
[2017-07-04] MEDS: Magnesium Oxide TAB* 400 MG PO SCH ×2 (07:58→22:03)
[2017-07-04] MEDS: Omeprazole CAP* 20 MG PO SCH (07:58)
[2017-07-04] MEDS: Digoxin TAB* 0.125 MG PO SCH ×2 (07:58→22:01)
[2017-07-04] MEDS ORDERED: Ferric Gluconate IV* 125 MG in NS 0.9% 100 ML* 100 ML IVPB ONE (11:00)
[2017-07-04] MEDS ORDERED: Docusate CAP* 100 MG PO PRN (17:11)
[2017-07-04] MEDS ORDERED: Senna TAB PO PRN (17:12)
[2017-07-04] MEDS ORDERED: Alteplase (CATHFLO)* 2 MG VIAL ONE (18:00)
[2017-07-04] MEDS: Allopurinol TAB* 100 MG PO SCH (18:08)
[2017-07-04] MEDS: Atorvastatin* 20 MG TAB PO SCH (22:01)
[2017-07-04] MEDS: oxyCODONE TAB* 5 MG TAB PO PRN (22:01)
[2017-07-05 05:53] LABS: Hematocrit 23 % (42-52); Hemoglobin 7.7 g/dl (14.0-18.0); Mean Corpuscular HGB Conc 33 g/dl (31-36); Mean Corpuscular Hemoglobin 28 pg (27-31); Mean Corpuscular Volume 86 fL (80-94); Mean Platelet Volume 9 um3 (7.4-10.4); Red Blood Count 2.72 10^6/ul (4.0-5.4); Red Cell Distribution Width 18 % (10.5-15)
[2017-07-05 05:58] LABS: Comments Flag Yes
[2017-07-05 05:59] LABS: White Blood Count 0.8 10^3/ul (3.5-10.8)
[2017-07-05] MEDS: Cefepime 2 GM in Dextrose(*) 2 GM/50 ML BAG IV SCH ×3 (08:19→23:30)
[2017-07-05] MEDS: Magnesium Oxide TAB* 400 MG PO SCH ×2 (08:32→20:35)
[2017-07-05] MEDS: Omeprazole CAP* 20 MG PO SCH (08:33)
[2017-07-05] MEDS: Metoprolol Tartrate TAB* 50 mg PO SCH ×2 (08:33→20:34)
[2017-07-05] MEDS: LORazepam TAB(*) 1 MG PO PRN ×2 (08:34→23:29)
[2017-07-05] MEDS: Digoxin TAB* 0.125 MG PO SCH ×2 (08:35→20:35)
[2017-07-05] MEDS: Atropine 1% (ORAL/SL)* 15 ML BTL SL PRN ×2 (08:42→16:44)
--- NOTE | 2017-07-05 10:10 | PN ---
Progress Note - Progress Note Date of Service: 07/05/17 SOAP: Subjective: feels very good. much more accepting of staying in the hospital at this point. mild constipation, requesting miralax which works at home for him. Objective: Vital Signs Temp Pulse Resp BP Pulse Ox 98.3 F 78 17 98/60 98 07/05/17 03:56 07/05/17 08:35 07/05/17 08:34 07/05/17 03:56 07/05/17 03:56 perr eomi op moist, adentulous CTA bl s1 s 2nl soft nt +bs no le edema A+O x 3, grossly nonfocal neurological exam port clean Laboratory Results - last 24 hr 07/05/17 05:30 WBC 0.8 L RBC 2.72 L Hgb 7.7 L Hct 23 L MCV 86 MCH 28 MCHC 33 RDW 18 H Plt Count 63 L MPV 9 Neut % (Auto) 28.2 L Lymph % (Auto) 35.4 [place] % (Auto) 28.0 H Eos % (Auto) 8.2 H Baso % (Auto) 0.2 Absolute Neuts (auto) 0.2 L Absolute Lymphs (auto) 0.3 L Absolute Monos (auto) 0.2 Absolute Eos (auto) 0.1 Absolute Basos (auto) 0 Acetaminophen (Tylenol Tab*) 650 mg PO Q6H PRN PRN Reason: pain/fever Last Admin: 06/29/17 17:48 Dose: 650 mg Allopurinol (Zyloprim Tab*) 100 mg PO QPM [facility] Last Admin: 07/04/17 18:08 Dose: 100 mg Atorvastatin Calcium (Lipitor*) 20 mg PO BEDTIME [facility] Last Admin: 07/04/17 22:01 Dose: 20 mg Atropine Sulfate (Atropine 1% (Oral/Sl)*) 2 drop SL Q2H PRN PRN Reason: Excess secretion Last Admin: 07/05/17 08:42 Dose: 2 drop Digoxin (Lanoxin Tab*) 0.125 mg PO BID [facility] Last Admin: 07/05/17 08:35 Dose: 0.125 mg Docusate Sodium (Colace Cap*) 100 mg PO BID PRN PRN Reason: CONSTIPATION Last Admin: 07/04/17 18:08 Dose: 100 mg Heparin Sodium (Porcine) (Heparin Flush Port (Ivad)) 5 ml FLUSH DAILY [facility] PRN Reason: Protocol Last Admin: 07/05/17 09:57 Dose: 5 ml Cefepime HCl (Maxipime 2 Gm In Dextrose Duplex (*)) 2 gm in 50 mls @ 100 mls/ hr IV Q8H [facility] Last Admin: 07/05/17 08:19 Dose: 100 mls/hr Lorazepam (Ativan Tab(*)) 0.5 mg PO BID PRN PRN Reason: ANXIETY Last Admin: 07/05/17 08:34 Dose: 0.5 mg Magnesium Oxide (Magox 400 Tab*) 400 mg PO BID [facility] Last Admin: 07/05/17 08:32 Dose: 400 mg Metoprolol Tartrate (Lopressor Tab*) 50 mg PO BID [facility] Last Admin: 07/05/17 08:33 Dose: 50 mg Nitroglycerin (Nitroglycerin Tab 0.4 Mg*) 0.4 mg SL Q5M PRN PRN Reason: ANGINA Omeprazole (Prilosec Cap*) 20 mg PO DAILY [facility] Last Admin: 07/05/17 08:33 Dose: 20 mg Ondansetron HCl (Zofran Inj*) 4 mg IV Q6H PRN PRN Reason: NAUSEA Last Admin: 06/30/17 16:39 Dose: 4 mg Oxycodone HCl (Roxycodone Tab*) 10 mg PO Q4H PRN PRN Reason: PAIN Last Admin: 07/04/17 22:01 Dose: 10 mg Senna (Senokot Tab*) 1 tab PO BID PRN PRN Reason: CONSTIPATION Last Admin: 07/04/17 18:08 Dose: 1 tab Assessment: 67 yo M w metastatic esophageal CA on palliative chemotherapy admitted with neutropenic fever. Cultures negative to date and afebrile on iv antibiotics. Awaiting anc >500 and rising. Plan: neutropenic fevers: cont cefepime afib: rate controlled on digoxin and metoprolol no anticoagulation with bleeding esophageal CA constipation: add miralax no DVT prophylaxis given bleeding esophageal CA\ full code
[2017-07-05] MEDS ORDERED: Polyethylene Glycol 3350* 17 GM PACKET PO PRN (11:24)
[2017-07-05] MEDS: Allopurinol TAB* 100 MG PO SCH (16:44)
[2017-07-05] MEDS: Atorvastatin* 20 MG TAB PO SCH (20:34)
[2017-07-05] MEDS: oxyCODONE TAB* 5 MG TAB PO PRN (20:35)
[2017-07-06] MEDS: oxyCODONE TAB* 5 MG TAB PO PRN ×3 (00:28→09:17)
[2017-07-06 04:40] VITALS: BP 98/58
[2017-07-06 05:08] LABS: Hematocrit 24 % (42-52); Hemoglobin 7.9 g/dl (14.0-18.0); Mean Corpuscular HGB Conc 33 g/dl (31-36); Mean Corpuscular Hemoglobin 28 pg (27-31); Mean Corpuscular Volume 86 fL (80-94); Mean Platelet Volume 9 um3 (7.4-10.4); Red Blood Count 2.77 10^6/ul (4.0-5.4); Red Cell Distribution Width 19 % (10.5-15)
[2017-07-06 05:09] LABS: Comments Flag Yes; White Blood Count 1.4 10^3/ul (3.5-10.8)
[2017-07-06 05:27] LABS: Albumin 3.2 g/dL (3.2-5.2); Calcium 9.1 mg/dL (8.6-10.3); EGFR African American 111.8 (>60); EGFR Non-African American 86.9 (>60); Magnesium 1.9 mg/dL (1.9-2.7); Potassium 3.5 mmol/L (3.5-5.0); Total Bilirubin 0.6 mg/dL (0.2-1.0); Total Protein 6.2 g/dL (6.4-8.9)
[2017-07-06] MEDS: Digoxin TAB* 0.125 MG PO SCH (08:19)
[2017-07-06] MEDS: Metoprolol Tartrate TAB* 50 mg PO SCH (08:19)
[2017-07-06] MEDS: Cefepime 2 GM in Dextrose(*) 2 GM/50 ML BAG IV SCH (08:19)
[2017-07-06] MEDS: Omeprazole CAP* 20 MG PO SCH (08:19)
[2017-07-06] MEDS: Magnesium Oxide TAB* 400 MG PO SCH (08:20)
[2017-07-06] MEDS: LORazepam TAB(*) 1 MG PO PRN (08:21)
[2017-07-06] MEDS: Atropine 1% (ORAL/SL)* 15 ML BTL SL PRN (08:21)
--- NOTE | 2017-07-06 11:26 | DS ---
- Discharge Summary Admission Date: 06/29/17 Discharge date: 07/06/17 Discharge Diagnosis: 1. Febrile Neutropenia: resolved, no source identified, completed 7 days IV abx. , no further abx. required. 2. Panctyopenia: chemotherapy induced, resolving, and will plan dose reduction for further cycles 3. Esophageal Cancer: will resume chemotherapy following OV with Dr. Herring 4. Heart disease: significant, no change 5. DM II: stable BG off insulin and will stay off insulin for now Discharge Medications: 1. Acetaminophen 650 mg PO q6hrs PRN pain or fever 2. Atropine 1% 2 gtts SL q6hrs PRN excessive secretions *New* 3. Docusate Sodium 100-200 mg PO BID PRN constipation 4. Miralax 17 gm PO daily PRN constipation 5. Lyrica 50 mg PO BID *New* 6. Senna 1-2 tabs PO BID PRN constipation 7. Triamcinolone 0.1% paste applied to affected area on gums TID PRN pain *New* 8. Nitro 0.4 mg SL PRN ches tpain 9. Magnesium Oxide 400 mg PO BID 10. Allopurinol 100 mg PO qPM 11. Ondansetron ODT 4 mg SL q4hrs PRN nausea/vomiting 12. Lorazeapm 0.5 mg PO BID PRN anxiety 13. Atorvastatin 20 mg PO qPM 14. Pantoprazole 40 mg PO BID 15. Sucralfate Susp. 1 gm TID with meals 16. Metoprolol Tartrate 50 mg PO BID 17. Digoxin 0.125 mg PO BID 18. Oxycodone 10 mg PO q2hrs PRN pain *Stop Insulin* Hospital Course: Please see admission note for full H&P, however briefly Mr. Asher is well known to our service d/t his unfortunately diagnosis of esophageal cancer currently receiving palliative chemotherapy. He received his first dose of FOLFIRI on 06/19/17 and presented to the ER on 06/26/17 with a fever. On work- up he was found to have an ANC of 100 and was subsequently admitted. On admission he was muñoz cultured and received IV Cefepime. Ultimately there was no growth on his cultures he remained fever free following his first dose of abx., unfortunately his recovery was delayed by a prolonged neutropenia just resolving to 500 today. He cont.s to feel very well and is ready for discharge. During his admission Mr. Asher received 2 units of PRBCs, though he had no evidence of bleeding from his tumor (as per prior admissions). He has had stable fasting blood glucose levels and we have d/cd his insulin ( likely r/t decreased intake). 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 He will follow-up with Dr. Herring in the office on Tuesday 07/10 @ 1440 to determine resumption of chemotherapy, however he will likely require a dose reduction and I have counseled him regarding potential discontinuation of 5-FU loading dose and/or 10 % dose reduction of Irinotecan. Plan of care was reviewed at length and questions were denied. >40 min spent with >50% face to face counseling
== END 2017-07-06 11:40 | disposition home or self-care (01) | DRG 809 ==
LOC: ED 14:16 → MED 16:04 → OBSVTOIN 06-30 11:00
PROVIDERS: ADMIT Internal Medicine; ATTEND Internal Medicine Hematology & Oncology
PROC: 30233N1 Transfusion of Nonautologous Red Blood Cells into Peripheral Vein, Percutaneous Approach (ICD-10-PCS; principal; 2017-06-30)
DX: D70.1 Agranulocytosis secondary to cancer chemotherapy (principal); C15.9 Malignant neoplasm of esophagus, unspecified; C78.7 Secondary malignant neoplasm of liver and intrahepatic bile duct; E11.42 Type 2 diabetes mellitus with diabetic polyneuropathy; I11.0 Hypertensive heart disease with heart failure; I50.9 Heart failure, unspecified; I48.91 Unspecified atrial fibrillation; K59.00 Constipation, unspecified; D61.810 Antineoplastic chemotherapy induced pancytopenia; Z95.810 Presence of automatic (implantable) cardiac defibrillator; I25.10 Atherosclerotic heart disease of native coronary artery without angina pectoris; Z95.5 Presence of coronary angioplasty implant and graft; M10.9 Gout, unspecified; Z88.8 Allergy status to other drugs, medicaments and biological substances; Z80.6 Family history of leukemia; Z80.7 Family history of other malignant neoplasms of lymphoid, hematopoietic and related tissues; Z82.49 Family history of ischemic heart disease and other diseases of the circulatory system; Z87.891 Personal history of nicotine dependence; Z92.21 Personal history of antineoplastic chemotherapy; Z87.01 Personal history of pneumonia (recurrent); H91.90 Unspecified hearing loss, unspecified ear; F41.9 Anxiety disorder, unspecified; Z80.9 Family history of malignant neoplasm, unspecified; Z83.3 Family history of diabetes mellitus; T45.1X5A Adverse effect of antineoplastic and immunosuppressive drugs, initial encounter; Y92.9 Unspecified place or not applicable; R50.81 Fever presenting with conditions classified elsewhere
CPT/HCPCS: 36415; 71020; 80048; 80053; 81003; 83605; 83735; 83880; 85025; 85027; 85060; 86078; 86140; 86850; 86900; 86901; 86922; 87040; 99232; 99233; 99239; A9270-GY; J0692; J1642; J2405; J2916; J2997; J3480; P9040

== ENCOUNTER 2017-08-08 03:26 | Emergency (ER) | payer MEDICARE, OTHER ==
[2017-08-08] MEDS ORDERED: NS 0.9% 1000 ML* 1,000 ML IV ONE (04:09)
[2017-08-08 04:27] LABS: ABS Basophils 0.1 10^3/ul (0-0.2); ABS Eosinophils 0.3 10^3/ul (0-0.6); ABS Lymphocytes 0.9 10^3/ul (1.0-4.8); ABS Monocytes 0.8 10^3/ul (0-0.8); ABS Neutrophils 11.3 10^3/ul (1.5-7.7); ABS Nucleated RBC 0.01 10^3/ul; Eosinophil % 2.6 % (0-6); Hematocrit 15 % (42-52); Lymphocyte % 6.4 % (25-47); Mean Corpuscular HGB Conc 33 g/dl (31-36); Mean Corpuscular Hemoglobin 32 pg (27-31); Mean Corpuscular Volume 98 fL (80-94); Mean Platelet Volume 8 um3 (7.4-10.4); Nucleated Red Blood Cells % 0.1; Platelet Count 254 10^3/ul (150-450); Red Blood Count 1.51 10^6/ul (4.0-5.4); White Blood Count 13.4 10^3/ul (3.5-10.8)
[2017-08-08 04:28] LABS: Red Cell Distribution Width 25 % (10.5-15)
[2017-08-08 04:29] LABS: Hemoglobin 4.8 g/dl (14.0-18.0)
[2017-08-08 04:38] LABS: EGFR Non-African American 59.6 (>60)
[2017-08-08 04:40] LABS: INR 1.09 (0.77-1.02)
[2017-08-08] MEDS ORDERED: Ondansetron INJ* 2 MG/ML VIAL ONE (05:43)
[2017-08-08] MEDS ORDERED: Ondansetron INJ* 2 MG/ML VIAL IV ONE (05:45)
--- NOTE | 2017-08-08 08:16 | RAD ---
Indication: Shortness of breath. Single frontal view of the chest performed at 0422 hours was reviewed. Comparison is made with previous exam dated June 29, 2017. Cardiomegaly is noted. AICD device is in place. No pleural fluid, pneumonia or pneumothorax is noted. IMPRESSION: NO ACTIVE CARDIOPULMONARY DISEASE IS NOTED.
[2017-08-08 09:55] LABS: ABS Basophils 0.1 10^3/ul (0-0.2); ABS Eosinophils 0.3 10^3/ul (0-0.6); ABS Lymphocytes 0.7 10^3/ul (1.0-4.8); ABS Monocytes 0.7 10^3/ul (0-0.8); ABS Neutrophils 8.3 10^3/ul (1.5-7.7); ABS Nucleated RBC 0 10^3/ul; Lymphocyte % 7.1 % (25-47); Nucleated Red Blood Cells % 0
[2017-08-08 09:58] LABS: Eosinophil % 3.2 % (0-6); Hematocrit 19 % (42-52); Mean Corpuscular HGB Conc 34 g/dl (31-36); Mean Corpuscular Hemoglobin 32 pg (27-31); Mean Corpuscular Volume 96 fL (80-94); Mean Platelet Volume 8 um3 (7.4-10.4); Platelet Count 196 10^3/ul (150-450); Red Blood Count 1.99 10^6/ul (4.0-5.4); Red Cell Distribution Width 19 % (10.5-15); White Blood Count 10.2 10^3/ul (3.5-10.8)
[2017-08-08 10:00] LABS: Hemoglobin 6.4 g/dl (14.0-18.0)
[2017-08-08 11:34] VITALS: BP 102/59
--- NOTE | 2017-08-08 16:44 | ED ---
Dar Jimenez Angela, scribed for Guera Mazariegos MD on 08/08/17 at 0718 . Progress - Progress Note Progress Note: This pt was signed out from Dr. Davis, pending disposition. Pt is a 67 y/o male, with hx of esophageal CA (currently not undergoing chemotherapy), presenting to [facility] c/o melena and SOB. Pt has received 8 units of blood within the last 10 days. He denies hematemesis, lightheadedness. Pt reports he has been trying to get dentures at the dentist, but was unable to due to infection. Dr. Herring is pt's oncologist. Pt notes a smoking hx (12 years ago). Physical Exam: Appearance: Alert, conversive, nontoxic appearing Skin: Warm, dry, no mottling, no rashes, no contusions HEENT: EOMI, PERRL, slight dry mucous membranes Neck: No masses on the neck, supple Respiratory: Clear to auscultation, breath sounds present, no rales, no rhonchi , no wheezes Cardiovascular: RRR, pulses are symmetrical in both lower and upper extremities Abdomen: Soft, non-tender Bowel Sounds: Present Musculoskeletal: No CVA tenderness, no obvious deformity, moving all extremities in a grossly normal manner Neurological: A&Ox3, CN II-XII Intact, moving all extremities symmetrically Psychiatric: Normal affect and mood Pt will be discharged to home, in stable condition. Re-Evaluation - Re-Evaluation First Eval Re-Evaluation Time: 07:15 Comment: Pt is stable, not hypotensive, blood pressure is 107/62. Second Eval Re-Evaluation Time: 08:51 Comment: I reviewed Dr. Umaña's recommendation with the pt. Pt agrees with discharge plan if blood work is normal. Pt notes he received 2 units of blood today. Third Eval Re-Evaluation Time: 10:55 Comment: I reviewed lab results with the pt and was instructed to follow up tomorrow in Dr. Herring's office for repeat blood work. Course/Dx - Course Course Of Treatment: H and H is 4.8 and 15. Pt is stable, not hypotensinve, blood pressure is 107/62. I discussed pt care with Dr. Umaña, oncologist, who reports the pt was transfused 1 unit on the 08/03/[address] Umaña states the pt's hemoglobin is typically 6.4. Even though the pt has hemoglobin of 4.8, she recommends to treat the pt symptomatically. She recommends to repeat a lactic acid and if it has decreased, we can discharge the pt home and have repeat lab work tomorrow in her office. If pt's lactic acid is still elevated, pt will be admitted. On repeat labs, lactic acid is 0.5 , H and H is 6.4/19. Pt is ambulatory and nontoxic. Pt will be discharged to home, in stable condition. He is instructed to follow up with Dr. Herring tomorrow. - Diagnoses Provider Diagnoses: Anemia - Provider Notifications Discussed Care Of Patient With: Malina Umaña Time Discussed With Above Provider: 07:57 Instructed by Provider To: Other - I discussed pt care with Dr. Umaña, oncologist, who reports the pt was transfused 1 unit on the 08/03/17 and 2 units on 08/01/17. Dr. Umaña states the pt's hemoglobin is typically 6.4. Even though the pt has hemoglobin of 4.8, she recommends to treat the pt symptomatically. She recommends to repeat a lactic acid and if it has decreased , we can discharge the pt home and have repeat lab work tomorrow in her office. If pt's lactic acid is still elevated, pt will be admitted. - Critical Care Time Critical Care Time: 75-104 min The documentation as recorded by the Dar mckeon Angela accurately reflects the service I personally performed and the decisions made by , Guera Mazariegos MD.
--- NOTE | 2017-08-10 06:03 | ED ---
Christi Jimenez Gabriel, scribDanny Troy MD on 08/08/17 at 0355 . Shortness of Breath - HPI Summary HPI Summary: This patient is a 67 year old MF BIBA to [facility] accompanied by his daughter with a chief complaint of SOB since 2199. Patient reports dry throat, hyper ventilation, nausea, and black stool. Patient denies cough and fever. The patient has an esophageal tumor bleed that began a week ago and has had 6 liters of blood in the last week and is going today for another 2L. He has liver cancer as well. - History of Current Complaint Chief Complaint: EDShortnessOfBreath Time Seen by Provider: 08/08/17 03:31 Hx Obtained From: Patient Onset/Duration: Still Present Timing: Constant Current Severity: Moderate Associated Signs & Symptoms: Negative - cough and feve r - Allergy/Home Medications Allergies/Adverse Reactions: Allergies Allergy/AdvReac Type Severity Reaction Status Date / Time Sotalol AdvReac Intermediate See Comment Verified 08/01/17 10:44 PMH/Surg Hx/FS Hx/Imm Hx Endocrine/Hematology History: Reports: Hx Anticoagulant Therapy - Predaxa, Hx Blood Transfusions, Hx Diabetes, Hx Anemia Denies: Hx Blood Disorders, Hx Bone Marrow Disease, Hx Systemic Lupus Erythematosus, Hx Sickle Cell Disease, Hx Thyroid Disease, Hx Unexplained Bleeding, Other Endocrine/Hematological Disorders Cardiovascular History: Reports: Hx Angina, Hx Auto Implanted Cardiovert Defib, Hx Cardiac Arrest, Hx Cardiomegaly, Hx Congestive Heart Failure, Hx Coronary Artery Disease, Hx Hypotension, Hx Hypertension, Hx Pacemaker/ICD - PACER/ICD- NO MRIs, Other Cardiovascular Problems/Disorders - EF 46% per pt. Denies: Hx Aneurysm, Hx Angioplasty, Hx Congenital Heart Disease, Hx Deep Vein Thrombosis, Hx Embolism, Hx Hypercholesterolemia, Hx Peripheral Vascular Disease, Hx Rheumatic Fever, Hx Syncope, Hx Valvular Heart Disease Respiratory History: Reports: Hx Pneumonia Denies: Hx Asthma, Hx Chronic Bronchitis, Hx Chronic Obstructive Pulmonary Disease (COPD), Hx Cystic Fibrosis, Hx Lung Cancer, Hx Pleural Effusion, Hx Pulmonary Edema, Hx Pulmonary Embolism, Hx Seasonal Allergies, Hx Sleep Apnea, Other Respiratory Problems/Disorders GI History: Reports: Hx Gastrointestinal Bleed, Other GI Disorders - 1983 hx of chronic Gastrisis Denies: Hx Cirrhosis, Hx Crohn's Disease, Hx Diverticulosis, Hx Gall Bladder Disease, Hx Gastroesophageal Reflux Disease, Hx Hiatal Hernia, Hx Irritable Bowel, Hx Jaundice, Hx Obstructive Bowel, Hx Ileostomy, Hx Pyloric Stenosis, Hx Ulcer History: Denies: Hx Acute Renal Failure, Hx Benign Prostatic Hyperplasia, Hx Chronic Renal Failure, Hx Dialysis, Hx Kidney Infection, Hx Kidney Stones, Hx Renal Disease, Other Problems/Disorders Musculoskeletal History: Reports: Hx Back Problems Denies: Hx Arthritis, Hx Bursitis, Hx Congenital Bone Abnormalities, Hx Fibromyalgia, Hx Gout, Hx Orthopedic Injury, Hx Osteoporosis, Hx Scoliosis, Hx Tendonitis, Other Musculoskeletal History Sensory History: Reports: Hx Contacts or Glasses, Hx Hearing Problem - high frequency hearing loss Denies: Hx Cataracts, Hx Eye Injury, Hx Eye Prosthesis, Hx Glaucoma, Hx Legally Blind, Hx Macular Degeneration, Hx Vision Problem, Hx Deafness, Hx Hearing Aid, Other Sensory Impairments Opthamlomology History: Reports: Hx Contacts or Glasses Denies: Hx Cataracts, Hx Eye Injury, Hx Eye Prosthesis, Hx Glaucoma, Hx Legally Blind, Hx Macular Degeneration, Hx Vision Problem, Other Sensory Impairments Neurological History: Reports: Other Neuro Impairments/Disorders - vertigo Denies: Hx Dementia, Hx Developmental Delay, Hx Headaches, Hx Migraine, Hx Nerve Disease, Hx Seizures, Hx Spinal Cord Injury, Hx Transient Ischemic Attacks (TIA) Psychiatric History: Reports: Hx Anxiety Denies: Hx Attention Deficit Hyperactivity Disorder, Hx Eating Disorder, Hx Depression, Hx Panic Disorder, Hx Post Traumatic Stress Disorder, Hx Inpatient Treatment, Hx Community Mental Health Tx, Hx Schizophrenia, Hx Bipolar Disorder , Hx Suicide Attempt, Hx of Violent Episodes Against Others, Hx Substance Abuse , Other Psychiatric Issues/Disorders - Cancer History Cancer Type, Location and Year: 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 Vasectomy. ICD 12/2013 Hx Anesthesia Reactions: No - Immunization History Date of Tetanus Vaccine: UTD Date of Influenza Vaccine: NONE Infectious Disease History: No Infectious Disease History: Denies: Hx Clostridium Difficile, Hx Hepatitis, Hx Human Immunodeficiency Virus (HIV), Hx of Known/Suspected MRSA, Hx Shingles, Hx Tuberculosis, Hx Known/ Suspected VRE, Hx Known/Suspected VRSA, History Other Infectious Disease, Traveled Outside the [place] in Last 30 Days - Family History Known Family History: Positive: Cardiac Disease - [place], Diabetes, Other - cancer - Social History Alcohol Use: None Alcohol Amount: 1 BEER EVERY 2 WEEKS Substance Use Type: Reports: None Smoking Status (MU): Former Smoker Type: Cigarettes Amount Used/How Often: UP TO 3 PPD FOR 13 YRS Length of Time of Smoking/Using Tobacco: 13 YRS Have You Smoked in the Last Year: No Review of Systems Negative: Fever ENT: Other - dry throat Positive: Shortness Of Breath, Other - hyper ventilation, . Negative: Cough Positive: Nausea, Other - black stool All Other Systems Reviewed And Are Negative: Yes Physical Exam - Summary Physical Exam Summary: VITAL SIGNS: Reviewed. GENERAL: Ill looking, pale, lethargic man HEAD AND FACE: No signs of trauma. No ecchymosis, hematomas or skull depressions. No sinus tenderness. EYES: PERRLA, EOMI x 2, No injected conjunctiva, no nystagmus. EARS: Hearing grossly intact. Ear canals and tympanic membranes are within normal limits. MOUTH: Oropharynx within normal limits. NECK: Supple, trachea is midline, no adenopathy, no JVD, no carotid bruit, no c- spine tenderness, neck with full ROM. CHEST: Symmetric, no tenderness at palpation LUNGS: Decreased breath sound bilaterally CVS: Regular rate and rhythm, S1 and S2 present, no murmurs or gallops appreciated. ABDOMEN: Soft, non-tender. No signs of distention. No rebound no guarding, and no masses palpated. Bowel sounds are normal. EXTREMITIES: FROM in all major joints, no edema, no cyanosis or clubbing. NEURO: Alert and oriented x 3. No acute neurological deficits. Speech is normal and follows commands. SKIN: Dry and warm Triage Information Reviewed: Yes Vital Signs On Initial Exam: Initial Vitals Temp Pulse Resp BP Pulse Ox 97.2 F 75 22 136/96 100 08/08/17 03:38 08/08/17 03:38 08/08/17 03:38 08/08/17 03:38 08/08/17 03:38 Vital Signs Reviewed: Yes Diagnostics - Vital Signs Vital Signs Temp Pulse Resp BP Pulse Ox 08/08/17 03:39 90 14 95 08/08/17 03:38 97.2 F 75 22 136/96 100 - Laboratory Lab Results: Lab Results 08/08/17 08/08/17 08/08/17 Range/Units 04:00 04:00 04:00 WBC 13.4 H (3.5-10.8) 10^3/ul RBC 1.51 L (4.0-5.4) 10^6/ul Hgb 4.8 L* (14.0-18.0) g/dl Hct 15 L (42-52) % MCV 98 H (80-94) fL MCH 32 H (27-31) pg MCHC 33 (31-36) g/dl RDW 25 H (10.5-15) % Plt Count 254 (150-450) 10^3/ul MPV 8 (7.4-10.4) um3 Neut % (Auto) 84.1 H (38-83) % Lymph % (Auto) 6.4 L (25-47) % [place] % (Auto) 6.0 (1-9) % Eos % (Auto) 2.6 (0-6) % Baso % (Auto) 0.9 (0-2) % Absolute Neuts (auto) 11.3 H (1.5-7.7) 10^3/ul Absolute Lymphs (auto) 0.9 L (1.0-4.8) 10^3/ul Absolute Monos (auto) 0.8 (0-0.8) 10^3/ul Absolute Eos (auto) 0.3 (0-0.6) 10^3/ul Absolute Basos (auto) 0.1 (0-0.2) 10^3/ul Absolute Nucleated RBC 0.01 10^3/ul Nucleated RBC % 0.1 INR (Anticoag Therapy) 1.09 H (0.77-1.02) APTT 22.1 L (26.0-36.3) seconds Sodium 129 L (133-145) mmol/L Potassium 3.8 (3.5-5.0) mmol/L Chloride 99 L (101-111) mmol/L Carbon Dioxide 20 L (22-32) mmol/L Anion Gap 10 (2-11) mmol/L BUN 48 H (6-24) mg/dL Creatinine 1.22 H (0.67-1.17) mg/dL Est GFR ( Amer) 76.7 (>60) Est GFR (Non-Af Amer) 59.6 (>60) BUN/Creatinine Ratio 39.3 H (8-20) Glucose 165 H (70-100) mg/dL Lactic Acid (0.5-2.0) mmol/L Calcium 9.0 (8.6-10.3) mg/dL Total Bilirubin 0.90 (0.2-1.0) mg/dL AST 14 (13-39) U/L ALT 11 (7-52) U/L Alkaline Phosphatase 136 H (34-104) U/L Troponin I 0.01 (<0.04) ng/mL Total Protein 5.3 L (6.4-8.9) g/dL Albumin 2.9 L (3.2-5.2) g/dL Globulin 2.4 (2-4) g/dL Albumin/Globulin Ratio 1.2 (1-3) Blood Type Antibody Screen Crossmatch 08/08/17 08/08/17 08/08/17 Range/Units 04:00 04:10 09:41 WBC 10.2 (3.5-10.8) 10^3/ul RBC 1.99 L (4.0-5.4) 10^6/ul Hgb 6.4 L* (14.0-18.0) g/dl Hct 19 L (42-52) % MCV 96 H (80-94) fL MCH 32 H (27-31) pg MCHC 34 (31-36) g/dl RDW 19 H (10.5-15) % Plt Count 196 (150-450) 10^3/ul MPV 8 (7.4-10.4) um3 Neut % (Auto) 81.4 (38-83) % Lymph % (Auto) 7.1 L (25-47) % [place] % (Auto) 7.1 (1-9) % Eos % (Auto) 3.2 (0-6) % Baso % (Auto) 1.2 (0-2) % Absolute Neuts (auto) 8.3 H (1.5-7.7) 10^3/ul Absolute Lymphs (auto) 0.7 L (1.0-4.8) 10^3/ul Absolute Monos (auto) 0.7 (0-0.8) 10^3/ul Absolute Eos (auto) 0.3 (0-0.6) 10^3/ul Absolute Basos (auto) 0.1 (0-0.2) 10^3/ul Absolute Nucleated RBC 0 10^3/ul Nucleated RBC % 0 INR (Anticoag Therapy) (0.77-1.02) APTT (26.0-36.3) seconds Sodium (133-145) mmol/L Potassium (3.5-5.0) mmol/L Chloride (101-111) mmol/L Carbon Dioxide (22-32) mmol/L Anion Gap (2-11) mmol/L BUN (6-24) mg/dL Creatinine (0.67-1.17) mg/dL Est GFR ( Amer) (>60) Est GFR (Non-Af Amer) (>60) BUN/Creatinine Ratio (8-20) Glucose (70-100) mg/dL Lactic Acid 2.9 H* (0.5-2.0) mmol/L Calcium (8.6-10.3) mg/dL Total Bilirubin (0.2-1.0) mg/dL AST (13-39) U/L ALT (7-52) U/L Alkaline Phosphatase (34-104) U/L Troponin I (<0.04) ng/mL Total Protein (6.4-8.9) g/dL Albumin (3.2-5.2) g/dL Globulin (2-4) g/dL Albumin/Globulin Ratio (1-3) Blood Type O Positive Antibody Screen Negative Crossmatch See Detail 08/08/17 Range/Units 09:41 WBC (3.5-10.8) 10^3/ul RBC (4.0-5.4) 10^6/ul Hgb (14.0-18.0) g/dl Hct (42-52) % MCV (80-94) fL MCH (27-31) pg MCHC (31-36) g/dl RDW (10.5-15) % Plt Count (150-450) 10^3/ul MPV (7.4-10.4) um3 Neut % (Auto) (38-83) % Lymph % (Auto) (25-47) % [place] % (Auto) (1-9) % Eos % (Auto) (0-6) % Baso % (Auto) (0-2) % Absolute Neuts (auto) (1.5-7.7) 10^3/ul Absolute Lymphs (auto) (1.0-4.8) 10^3/ul Absolute Monos (auto) (0-0.8) 10^3/ul Absolute Eos (auto) (0-0.6) 10^3/ul Absolute Basos (auto) (0-0.2) 10^3/ul Absolute Nucleated RBC 10^3/ul Nucleated RBC % INR (Anticoag Therapy) (0.77-1.02) APTT (26.0-36.3) seconds Sodium (133-145) mmol/L Potassium (3.5-5.0) mmol/L Chloride (101-111) mmol/L Carbon Dioxide (22-32) mmol/L Anion Gap (2-11) mmol/L BUN (6-24) mg/dL Creatinine (0.67-1.17) mg/dL Est GFR ( Amer) (>60) Est GFR (Non-Af Amer) (>60) BUN/Creatinine Ratio (8-20) Glucose (70-100) mg/dL Lactic Acid 0.5 (0.5-2.0) mmol/L Calcium (8.6-10.3) mg/dL Total Bilirubin (0.2-1.0) mg/dL AST (13-39) U/L ALT (7-52) U/L Alkaline Phosphatase (34-104) U/L Troponin I (<0.04) ng/mL Total Protein (6.4-8.9) g/dL Albumin (3.2-5.2) g/dL Globulin (2-4) g/dL Albumin/Globulin Ratio (1-3) Blood Type Antibody Screen Crossmatch Result Diagrams: 08/08/17 09:41 08/08/17 04:00 Lab Statement: Any lab studies that have been ordered have been reviewed, and results considered in the medical decision making process. - Radiology CXR Radiology Interpretation Completed By: ED Physician - no acute process Re-Evaluation - Re-Evaluation First Eval Re-Evaluation Time: 07:15 Comment: Pt is stable, not hypotensive, blood pressure is 107/62. Second Eval Re-Evaluation Time: 08:51 Comment: I reviewed Dr. Umaña's recommendation with the pt. Pt agrees with discharge plan if blood work is normal. Pt notes he received 2 units of blood today. Third Eval Re-Evaluation Time: 10:55 Comment: I reviewed lab results with the pt and was instructed to follow up tomorrow in Dr. Herring's office for repeat blood work. Course/Dx - Diagnoses Provider Diagnoses: Anemia - Physician Notifications Discussed Care of Patient With: Burke Hale Time Discussed With Above Provider: 05:46 Instructed by Provider To: Other - We discussed patient care with Dr. Gandhi and he states he is too busy to admit the patient. He advises to wait for the morning doctor. Discharge - Discharge Plan Condition: Fair Disposition: OTHER Discharge Disposition Comment: Patient is signed out to Dr. Mazariegos, awaiting admission Patient Education Materials: Anemia (ED) Referrals: Dayne Barillas MD [Primary Care Provider] - Derrek Herring MD [Medical Doctor] - Additional Instructions: Please follow up with your oncologist tomorrow. I spoke to Dr. Umaña. She is aware of your visit and your blood transfusions. You will need repeat blood work tomorrow. Please return if worse or any new symptoms. Take all medications as previously instructed. The documentation as recorded by the Christi mckeon Gabriel accurately reflects the service I personally performed and the decisions made by me, Danyn Davis MD.
== END 2017-08-08 11:33 ==
LOC: ED 03:26
DX: D64.9 Anemia, unspecified (principal); R06.02 Shortness of breath; R06.4 Hyperventilation; Z87.891 Personal history of nicotine dependence; R11.0 Nausea
CPT/HCPCS: 36415; 36430; 71045; 80053; 83605; 84484; 85025; 85610; 85730; 86850; 86900; 86901; 86922; 87040; 96361; 96374; 96375; 99284; J2405; P9040

== ENCOUNTER 2017-08-14 02:01 | Inpatient (IN) | payer MEDICARE, OTHER ==
[2017-08-14 02:33] LABS: EGFR Non-African American 62.6 (>60)
[2017-08-14 02:47] LABS: INR 1.07 (0.77-1.02)
[2017-08-14 03:09] LABS: ABS Basophils 0.1 10^3/ul (0-0.2); ABS Eosinophils 0.5 10^3/ul (0-0.6); ABS Lymphocytes 1.6 10^3/ul (1.0-4.8); ABS Monocytes 0.9 10^3/ul (0-0.8); ABS Neutrophils 10.3 10^3/ul (1.5-7.7); ABS Nucleated RBC 0 10^3/ul; Eosinophil % 3.4 % (0-6); Hematocrit 14 % (42-52); Mean Corpuscular HGB Conc 32 g/dl (31-36); Mean Corpuscular Hemoglobin 31 pg (27-31); Mean Corpuscular Volume 97 fL (80-94); Mean Platelet Volume 9 um3 (7.4-10.4); Nucleated Red Blood Cells % 0.2; Platelet Count 280 10^3/ul (150-450); Red Blood Count 1.48 10^6/ul (4.0-5.4); Red Cell Distribution Width 22 % (10.5-15); White Blood Count 13.3 10^3/ul (3.5-10.8)
[2017-08-14] MEDS ORDERED: LORazepam TAB(*) 1 MG PO ONE (04:00)
--- NOTE | 2017-08-14 04:23 | ED ---
Lico Jimenez Abhishek, scribed for Codey Garcia MD on 08/14/17 at 0218 . HPI Cardiac - HPI Summary HPI Summary: This patient is a 67 year old M BIBA accompanied by daughter with c/o of SOB since 0130 as per EMS report. Patient reports SOB, dizziness, and tremors. Patient denies chest pain. Prior to [facility] arrival, pt had a witnessed fall in the kitchen with no LOC and EMS was called. Upon arrival, EMS reviewed vitals and reports of oxygen saturations in the low 80s. Enroute to the [facility], the pt was placed on NRB and EKG was taken. Pertinent PMHx of the pt includes esophageal cancer and AFib. The patient rates the pain 0/10 in severity. Symptoms aggravated by nothing. Symptoms alleviated by nothing. Pt also has an oxygen tank at home. - History of Current Complaint Stated Complaint: DIFFICULTY BREATHING Time Seen by Provider: 08/14/17 02:02 Hx Obtained From: Patient, Family/Sales Engagement Executive, EMS Onset/Duration: Started Minutes Ago - at 0130 Timing: Constant Current Severity: None Pain Intensity: 0 Pain Scale Used: 0-10 Numeric Aggravating Factor(s): Nothing Alleviating Factor(s): Nothing Associated Signs and Symptoms: Positive: Shortness of Breath, Other: - dizziness , and tremors. Negative CP - Additional Pertinent History Primary Care Physician: [id number] - Allergy/Home Medications Allergies/Adverse Reactions: Allergies Allergy/AdvReac Type Severity Reaction Status Date / Time Sotalol AdvReac Intermediate See Comment Verified 08/14/17 02:06 PMH/Surg Hx/FS Hx/Imm Hx Endocrine/Hematology History: Reports: Hx Anticoagulant Therapy - Predaxa, Hx Blood Transfusions, Hx Diabetes, Hx Anemia Denies: Hx Blood Disorders, Hx Bone Marrow Disease, Hx Systemic Lupus Erythematosus, Hx Sickle Cell Disease, Hx Thyroid Disease, Hx Unexplained Bleeding, Other Endocrine/Hematological Disorders Cardiovascular History: Reports: Hx Angina, Hx Auto Implanted Cardiovert Defib, Hx Cardiac Arrest, Hx Cardiomegaly, Hx Congestive Heart Failure, Hx Coronary Artery Disease, Hx Hypotension, Hx Hypertension, Hx Pacemaker/ICD - PACER/ICD- NO MRIs, Other Cardiovascular Problems/Disorders - EF 46% per pt. Denies: Hx Aneurysm, Hx Angioplasty, Hx Congenital Heart Disease, Hx Deep Vein Thrombosis, Hx Embolism, Hx Hypercholesterolemia, Hx Peripheral Vascular Disease, Hx Rheumatic Fever, Hx Syncope, Hx Valvular Heart Disease Respiratory History: Reports: Hx Pneumonia Denies: Hx Asthma, Hx Chronic Bronchitis, Hx Chronic Obstructive Pulmonary Disease (COPD), Hx Cystic Fibrosis, Hx Lung Cancer, Hx Pleural Effusion, Hx Pulmonary Edema, Hx Pulmonary Embolism, Hx Seasonal Allergies, Hx Sleep Apnea, Other Respiratory Problems/Disorders GI History: Reports: Hx Gastrointestinal Bleed, Other GI Disorders - 1983 hx of chronic Gastrisis Denies: Hx Cirrhosis, Hx Crohn's Disease, Hx Diverticulosis, Hx Gall Bladder Disease, Hx Gastroesophageal Reflux Disease, Hx Hiatal Hernia, Hx Irritable Bowel, Hx Jaundice, Hx Obstructive Bowel, Hx Ileostomy, Hx Pyloric Stenosis, Hx Ulcer History: Denies: Hx Acute Renal Failure, Hx Benign Prostatic Hyperplasia, Hx Chronic Renal Failure, Hx Dialysis, Hx Kidney Infection, Hx Kidney Stones, Hx Renal Disease, Other Problems/Disorders Musculoskeletal History: Reports: Hx Back Problems Denies: Hx Arthritis, Hx Bursitis, Hx Congenital Bone Abnormalities, Hx Fibromyalgia, Hx Gout, Hx Orthopedic Injury, Hx Osteoporosis, Hx Scoliosis, Hx Tendonitis, Other Musculoskeletal History Sensory History: Reports: Hx Contacts or Glasses, Hx Hearing Problem - high frequency hearing loss Denies: Hx Cataracts, Hx Eye Injury, Hx Eye Prosthesis, Hx Glaucoma, Hx Legally Blind, Hx Macular Degeneration, Hx Vision Problem, Hx Deafness, Hx Hearing Aid, Other Sensory Impairments Opthamlomology History: Reports: Hx Contacts or Glasses Denies: Hx Cataracts, Hx Eye Injury, Hx Eye Prosthesis, Hx Glaucoma, Hx Legally Blind, Hx Macular Degeneration, Hx Vision Problem, Other Sensory Impairments Neurological History: Reports: Other Neuro Impairments/Disorders - vertigo Denies: Hx Dementia, Hx Developmental Delay, Hx Headaches, Hx Migraine, Hx Nerve Disease, Hx Seizures, Hx Spinal Cord Injury, Hx Transient Ischemic Attacks (TIA) Psychiatric History: Reports: Hx Anxiety Denies: Hx Attention Deficit Hyperactivity Disorder, Hx Eating Disorder, Hx Depression, Hx Panic Disorder, Hx Post Traumatic Stress Disorder, Hx Inpatient Treatment, Hx Community Mental Health Tx, Hx Schizophrenia, Hx Bipolar Disorder , Hx Suicide Attempt, Hx of Violent Episodes Against Others, Hx Substance Abuse , Other Psychiatric Issues/Disorders - Cancer History Cancer Type, Location and Year: 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 Vasectomy. ICD 12/2013 Hx Anesthesia Reactions: No - Immunization History Date of Tetanus Vaccine: UTD Date of Influenza Vaccine: NONE Infectious Disease History: No Infectious Disease History: Denies: Hx Clostridium Difficile, Hx Hepatitis, Hx Human Immunodeficiency Virus (HIV), Hx of Known/Suspected MRSA, Hx Shingles, Hx Tuberculosis, Hx Known/ Suspected VRE, Hx Known/Suspected VRSA, History Other Infectious Disease, Traveled Outside the [place] in Last 30 Days - Family History Known Family History: Positive: Cardiac Disease - [place], Diabetes, Other - cancer - Social History Alcohol Use: None Alcohol Amount: 1 BEER EVERY 2 WEEKS Substance Use Type: Reports: None Smoking Status (MU): Former Smoker Type: Cigarettes Amount Used/How Often: UP TO 3 PPD FOR 13 YRS Length of Time of Smoking/Using Tobacco: 13 YRS Have You Smoked in the Last Year: No Review of Systems Constitutional: Negative Eyes: Negative ENT: Negative Negative: Chest Pain Positive: Shortness Of Breath Gastrointestinal: Negative Genitourinary: Negative Musculoskeletal: Negative Skin: Negative Neurological: Other - dizziness, and tremors Psychological: Normal All Other Systems Reviewed And Are Negative: Yes Physical Exam - Summary Physical Exam Summary: General: well-appearing, no pain distress, Pale thin Skin: warm, color reflects adequate perfusion, dry Head: normal Eyes: EOMI, SAMANTHA ENT: normal Neck: supple, nontender Respiratory: CTA, breath sounds present, Lungs clear to auscultation Cardiovascular: Tachycardic Abdomen: soft, nontender Bowel: present Musculoskeletal: normal, strength/ROM intact, no edema Neurological: normal, sensory/motor intact, A&O x3, no neurological deficit Psychological: affect/mood appropriate Triage Information Reviewed: Yes Vital Signs On Initial Exam: Initial Vitals Temp Pulse Resp BP Pulse Ox 97.4 F 114 20 108/73 95 08/14/17 02:03 08/14/17 02:03 08/14/17 02:03 08/14/17 02:03 08/14/17 02:03 Vital Signs Reviewed: Yes - Nila Coma Scale Coma Scale Total: 15 Diagnostics - Vital Signs Vital Signs Temp Pulse Resp BP Pulse Ox 08/14/17 02:12 113 08/14/17 02:03 97.4 F 114 20 108/73 95 - Laboratory Lab Results: Lab Results 08/14/17 08/14/17 08/14/17 Range/Units 02:10 02:10 02:10 WBC (3.5-10.8) 10^3/ul RBC (4.0-5.4) 10^6/ul Hgb (14.0-18.0) g/dl Hct (42-52) % MCV (80-94) fL MCH (27-31) pg MCHC (31-36) g/dl RDW (10.5-15) % Plt Count (150-450) 10^3/ul MPV (7.4-10.4) um3 Neut % (Auto) (38-83) % Lymph % (Auto) (25-47) % Churchill % (Auto) (1-9) % Eos % (Auto) (0-6) % Baso % (Auto) (0-2) % Absolute Neuts (auto) (1.5-7.7) 10^3/ul Absolute Lymphs (auto) (1.0-4.8) 10^3/ul Absolute Monos (auto) (0-0.8) 10^3/ul Absolute Eos (auto) (0-0.6) 10^3/ul Absolute Basos (auto) (0-0.2) 10^3/ul Absolute Nucleated RBC 10^3/ul Nucleated RBC % Polychromasia Hypochromasia Anisocytosis INR (Anticoag Therapy) 1.07 H (0.77-1.02) APTT 25.2 L (26.0-36.3) seconds Sodium 135 (133-145) mmol/L Potassium 4.3 (3.5-5.0) mmol/L Chloride 104 (101-111) mmol/L Carbon Dioxide 15 L (22-32) mmol/L Anion Gap 16 H (2-11) mmol/L BUN 49 H (6-24) mg/dL Creatinine 1.17 (0.67-1.17) mg/dL Est GFR ( Amer) 80.5 (>60) Est GFR (Non-Af Amer) 62.6 (>60) BUN/Creatinine Ratio 41.9 H (8-20) Glucose 292 H (70-100) mg/dL Lactic Acid (0.5-2.0) mmol/L Calcium 8.2 L (8.6-10.3) mg/dL Total Bilirubin 0.80 (0.2-1.0) mg/dL AST 12 L (13-39) U/L ALT 11 (7-52) U/L Alkaline Phosphatase 117 H (34-104) U/L Total Creatine Kinase 23 (10-223) U/L CK-MB (CK-2) 1.4 (0.6-6.3) ng/mL Troponin I 0.05 H* (<0.04) ng/mL B-Natriuretic Peptide 267 H ( - 100) pg/mL Total Protein 4.6 L (6.4-8.9) g/dL Albumin 2.4 L (3.2-5.2) g/dL Globulin 2.2 (2-4) g/dL Albumin/Globulin Ratio 1.1 (1-3) LDL Cholesterol Direct 38 mg/dL Blood Type Antibody Screen Crossmatch 08/14/17 08/14/17 08/14/17 Range/Units 02:10 02:10 02:10 WBC 13.3 H (3.5-10.8) 10^3/ul RBC 1.48 L (4.0-5.4) 10^6/ul Hgb 4.6 L* (14.0-18.0) g/dl Hct 14 L (42-52) % MCV 97 H (80-94) fL MCH 31 (27-31) pg MCHC 32 (31-36) g/dl RDW 22 H (10.5-15) % Plt Count 280 (150-450) 10^3/ul MPV 9 (7.4-10.4) um3 Neut % (Auto) 77.5 (38-83) % Lymph % (Auto) 12.0 L (25-47) % Churchill % (Auto) 6.6 (1-9) % Eos % (Auto) 3.4 (0-6) % Baso % (Auto) 0.5 (0-2) % Absolute Neuts (auto) 10.3 H (1.5-7.7) 10^3/ul Absolute Lymphs (auto) 1.6 (1.0-4.8) 10^3/ul Absolute Monos (auto) 0.9 H (0-0.8) 10^3/ul Absolute Eos (auto) 0.5 (0-0.6) 10^3/ul Absolute Basos (auto) 0.1 (0-0.2) 10^3/ul Absolute Nucleated RBC 0 10^3/ul Nucleated RBC % 0.2 Polychromasia 1+ Hypochromasia 2+ Anisocytosis 2+ INR (Anticoag Therapy) (0.77-1.02) APTT (26.0-36.3) seconds Sodium (133-145) mmol/L Potassium (3.5-5.0) mmol/L Chloride (101-111) mmol/L Carbon Dioxide (22-32) mmol/L Anion Gap (2-11) mmol/L BUN (6-24) mg/dL Creatinine (0.67-1.17) mg/dL Est GFR ( Amer) (>60) Est GFR (Non-Af Amer) (>60) BUN/Creatinine Ratio (8-20) Glucose (70-100) mg/dL Lactic Acid 8.5 H* (0.5-2.0) mmol/L Calcium (8.6-10.3) mg/dL Total Bilirubin (0.2-1.0) mg/dL AST (13-39) U/L ALT (7-52) U/L Alkaline Phosphatase (34-104) U/L Total Creatine Kinase (10-223) U/L CK-MB (CK-2) (0.6-6.3) ng/mL Troponin I (<0.04) ng/mL B-Natriuretic Peptide ( - 100) pg/mL Total Protein (6.4-8.9) g/dL Albumin (3.2-5.2) g/dL Globulin (2-4) g/dL Albumin/Globulin Ratio (1-3) LDL Cholesterol Direct mg/dL Blood Type O Positive Antibody Screen Negative Crossmatch See Detail Result Diagrams: 08/14/17 02:10 08/14/17 02:10 Lab Statement: Any lab studies that have been ordered have been reviewed, and results considered in the medical decision making process. - EKG 0156 EKG Rhythm: Atrial Fibrillation - 111 bpm EKG Interpretation: [address] elevation V3, mm st elevation aVF, Reciprocal changes in V1; V2 Disposition - Course Course Of Treatment: UPON ARRIVAL DISCUSSED WITH DR JACOBO AND STEMI WAS CALLED. THE STEMI WAS CANCELLED WHEN IT WAS DISCOVERED MR MARTINEZ IS SEVERELY ANEMIC, HE HAS ESOPHAGEAL CA WHICH IS BLEEDING, HE HAS BLED ON ANTICOAGULATION RECENTLY; DR TARIQ CONCURRED. DISCUSSED WITH DR HOPE WHO RECOMMENED TREATING THE ANEMIA AND BETA CHARLES IF PATIENT'S BP WAS SUFFICIENT. THE PATIENT IS ON METOPROLOL AND SBP IS IN THE 90S SO, NO BB GIVEN IN ED. RESULTS DISCUSSED WITH PATIENT AND HIS . ADMIT HOSPITALIST. - Diagnoses Provider Diagnoses: Anemia, Myocardial infarct - Critical Care Time Critical Care Time: 30-74 min Discharge - Discharge Plan Condition: Fair Disposition: ADMITTED TO [facility] Referrals: Dayne Barillas MD [Primary Care Provider] - The documentation as recorded by the Lico mckeon Abhishek accurately reflects the service I personally performed and the decisions made by me, Codey Garcia MD.
[2017-08-14] MEDS ORDERED: Acetaminophen TAB* 325 MG PO PRN (04:58)
[2017-08-14] MEDS ORDERED: Albuterol 2.5 MG/3 ML NEB.SOL* (0.083%) INH PRN (04:58)
[2017-08-14] MEDS ORDERED: NS 0.9% 1000 ML* 1,000 ML IV SCH (05:00)
[2017-08-14] MEDS ORDERED: LORazepam INJ* 2 MG/ML 1 ML VIAL IV PRN (05:02)
--- NOTE | 2017-08-14 05:21 | HP ---
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 He denies chest pain, sweats, and light-headedness, but has had some nausea and palpitations. When it did not resolve he & his called EMS who found an inferior STEMI on arrival. However, he has had significant issues with bleeding, including dark stools for the past week, has been advised by Riaz Herring MD oncology not to take aspirin, and currently has a HGB of 4.6. Blood pressure is too soft to safely give beta rosalinda and heparin is contra-indicated. Ursula Garcia MD ED consulted with Juan Zafar MD interventional cardiology who agreed he was not a candidate for cardiac cath. ED ordered 2 units pRBCs and requested admission for medical management. Isabella Marcos MD was consulted by ED and agreed, will see in AM. PMedHx esophageal CA metastatic to liver CAD/stent CHF/cardiomyopathy s/p AICD pAFIB DM2 peripheral neuropathy 2nd taxol gout GERD HLD Ambulatory Orders Nursing to reconcile. Magnesium Oxide TAB* [MagOx 400 TAB*] 400 mg PO BID 03/03/15 Allopurinol TAB* [Zyloprim 100 MG TAB*] 100 mg PO QPM 05/31/16 Atorvastatin* [Lipitor 10 MG*] 20 mg PO BEDTIME 10/20/16 LORazepam TAB(*) [Ativan 1 MG TAB (*)] 0.5 mg PO BID 10/20/16 Ondansetron ODT TAB* [Zofran 4 MG Odt TAB*] 4 mg PO Q4H PRN 10/20/16 Pantoprazole TAB (NF) [Protonix TAB (NF)] 40 mg PO BID #60 tab 10/23/16 Atropine 1% (ORAL/SL)* 2 drop SL Q6HR #1 btl 07/06/17 Senna TAB* [Senokot TAB*] 1 - 2 tab PO BID PRN tab 07/06/17 oxyCODONE TAB* [Roxycodone TAB 5 mg*] 10 mg PO Q2HR PRN #0 07/06/17 Digoxin TAB* [Lanoxin TAB*] 0.125 mg PO EVERY OTHER DAY 08/08/17 Digoxin TAB* [Lanoxin TAB*] 0.25 mg PO EVERY OTHER DAY 08/08/17 Gabapentin CAP(*) [Neurontin 100 mg CAP(*)] 100 - 300 mg PO BEDTIME PRN Hyoscyamine TAB* [Anaspaz 0.125 MG TAB*] 0.125 mg PO Q4H 08/08/17 Metoprolol Tartrate TAB* [Lopressor TAB*] 25 mg PO BID 08/08/17 Nitroglycerin TAB 0.4 MG* 0.4 mg SL Q5M PRN 08/08/17 Polyethylene Glycol 3350* [Miralax*] 17 gm PO DAILY 08/08/17 Potassium Chlor TAB* [Klor Con ER TAB*] 20 meq PO DAILY 08/08/17 Scopolamine 1 mg TRANSDERM Q72H 08/08/17 Tranexamic Acid [Lysteda] 1,300 mg PO TID 08/08/17 oxyCODONE/Acetam5/325MG PREPAK [Percocet 5/325 TAB*] 1 tab PO DAILY PRN Allergies Sotalol Adverse Reaction (Intermediate, Verified 08/14/17 02:06) See Comment Shortness of breath, weakness SocHx: former smoker w/ >100PYHX, no alcohol or recreational drugs; lives with his ; full code status, needs revisiting FamHx: M: 43 multiple myeloma; F: 67 CHF & leukemia; Sister: breast CA; Brother: CAD ROS: as above, otherwise reviewed and all were negative vitals: Vital Signs Temp 37.1 C 08/14/17 05:20 Pulse 82 08/14/17 05:20 Resp 18 08/14/17 05:20 BP 85/54 08/14/17 05:20 Pulse Ox 100 08/14/17 05:20 Intake & Output 08/13/17 08/13/17 08/14/17 11:59 23:59 11:59 Weight 75.296 kg Constitutional: NAD, normally developed, frail appearing white male HEENM: atraumatic; sclera/conjunctiva: anicteric/clear; hearing: clinically intact; oropharynx: clear, mucosa tacky Neck: soft tissue: non-tender; thyroid: normal Pulmonary: clear to auscultation bilaterally, good aeration, no accessory muscle use CV: RR/RR, normal S1S2, no carotid bruit, no jugular venous distention, 2+ B DP/ PT, no edema Abdominal: soft, non-distended, non-tender, no rebound/guarding/rigidity, normoactive bowel sounds, no hepatosplenomegaly or masses, no costovertebral angle tenderness Musculoskeletal: general: grossly intact, no pain w/ palpation Integumental: normal appearance and texture of exposed skin Psychiatric orientation: AA&O to PPS affect: calm mood: cooperative eye contact: good content: reliable responses: timely insight: fair to good Testing: Lab Results 08/14/17 08/14/17 08/14/17 Range/Units 02:10 02:10 02:10 WBC (3.5-10.8) 10^3/ul RBC (4.0-5.4) 10^6/ul Hgb (14.0-18.0) g/dl Hct (42-52) % MCV (80-94) fL MCH (27-31) pg MCHC (31-36) g/dl RDW (10.5-15) % Plt Count (150-450) 10^3/ul MPV (7.4-10.4) um3 Neut % (Auto) (38-83) % Lymph % (Auto) (25-47) % Clinton % (Auto) (1-9) % Eos % (Auto) (0-6) % Baso % (Auto) (0-2) % Absolute Neuts (auto) (1.5-7.7) 10^3/ul Absolute Lymphs (auto) (1.0-4.8) 10^3/ul Absolute Monos (auto) (0-0.8) 10^3/ul Absolute Eos (auto) (0-0.6) 10^3/ul Absolute Basos (auto) (0-0.2) 10^3/ul Absolute Nucleated RBC 10^3/ul Nucleated RBC % Polychromasia Hypochromasia Anisocytosis INR (Anticoag Therapy) 1.07 H (0.77-1.02) APTT 25.2 L (26.0-36.3) seconds Sodium 135 (133-145) mmol/L Potassium 4.3 (3.5-5.0) mmol/L Chloride 104 (101-111) mmol/L Carbon Dioxide 15 L (22-32) mmol/L Anion Gap 16 H (2-11) mmol/L BUN 49 H (6-24) mg/dL Creatinine 1.17 (0.67-1.17) mg/dL Est GFR ( Amer) 80.5 (>60) Est GFR (Non-Af Amer) 62.6 (>60) BUN/Creatinine Ratio 41.9 H (8-20) Glucose 292 H (70-100) mg/dL Lactic Acid (0.5-2.0) mmol/L Calcium 8.2 L (8.6-10.3) mg/dL Total Bilirubin 0.80 (0.2-1.0) mg/dL AST 12 L (13-39) U/L ALT 11 (7-52) U/L Alkaline Phosphatase 117 H (34-104) U/L Total Creatine Kinase 23 (10-223) U/L CK-MB (CK-2) 1.4 (0.6-6.3) ng/mL Troponin I 0.05 H* (<0.04) ng/mL B-Natriuretic Peptide 267 H ( - 100) pg/mL Total Protein 4.6 L (6.4-8.9) g/dL Albumin 2.4 L (3.2-5.2) g/dL Globulin 2.2 (2-4) g/dL Albumin/Globulin Ratio 1.1 (1-3) LDL Cholesterol Direct 38 mg/dL Blood Type Antibody Screen Crossmatch 08/14/17 08/14/17 08/14/17 Range/Units 02:10 02:10 02:10 WBC 13.3 H (3.5-10.8) 10^3/ul RBC 1.48 L (4.0-5.4) 10^6/ul Hgb 4.6 L* (14.0-18.0) g/dl Hct 14 L (42-52) % MCV 97 H (80-94) fL MCH 31 (27-31) pg MCHC 32 (31-36) g/dl RDW 22 H (10.5-15) % Plt Count 280 (150-450) 10^3/ul MPV 9 (7.4-10.4) um3 Neut % (Auto) 77.5 (38-83) % Lymph % (Auto) 12.0 L (25-47) % Clinton % (Auto) 6.6 (1-9) % Eos % (Auto) 3.4 (0-6) % Baso % (Auto) 0.5 (0-2) % Absolute Neuts (auto) 10.3 H (1.5-7.7) 10^3/ul Absolute Lymphs (auto) 1.6 (1.0-4.8) 10^3/ul Absolute Monos (auto) 0.9 H (0-0.8) 10^3/ul Absolute Eos (auto) 0.5 (0-0.6) 10^3/ul Absolute Basos (auto) 0.1 (0-0.2) 10^3/ul Absolute Nucleated RBC 0 10^3/ul Nucleated RBC % 0.2 Polychromasia 1+ Hypochromasia 2+ Anisocytosis 2+ INR (Anticoag Therapy) (0.77-1.02) APTT (26.0-36.3) seconds Sodium (133-145) mmol/L Potassium (3.5-5.0) mmol/L Chloride (101-111) mmol/L Carbon Dioxide (22-32) mmol/L Anion Gap (2-11) mmol/L BUN (6-24) mg/dL Creatinine (0.67-1.17) mg/dL Est GFR ( Amer) (>60) Est GFR (Non-Af Amer) (>60) BUN/Creatinine Ratio (8-20) Glucose (70-100) mg/dL Lactic Acid 8.5 H* (0.5-2.0) mmol/L Calcium (8.6-10.3) mg/dL Total Bilirubin (0.2-1.0) mg/dL AST (13-39) U/L ALT (7-52) U/L Alkaline Phosphatase (34-104) U/L Total Creatine Kinase (10-223) U/L CK-MB (CK-2) (0.6-6.3) ng/mL Troponin I (<0.04) ng/mL B-Natriuretic Peptide ( - 100) pg/mL Total Protein (6.4-8.9) g/dL Albumin (3.2-5.2) g/dL Globulin (2-4) g/dL Albumin/Globulin Ratio (1-3) LDL Cholesterol Direct mg/dL Blood Type O Positive Antibody Screen Negative Crossmatch See Detail ECG, personally reviewed: ST elevation III/AVF w/ reciprocal changes V1-2, sinus tachycardia rate 111 Impression: 67M HX esophageal CA metastatic to liver, DM2, CAD/stent, pAFIB DIAGNOSIS & PLAN Primary inferior STEMI 2nd underlying CAD unmasked by critical anemia : HX CAD/stent : ICU monitoring : unable to take aspirin or heparin 2nd recent melana & critical H&H 4.6 : transfuse 2 units pRBCs & recheck H&H, goal HBG of 10, will likely need 3-4 units : unable to use additional beta rosalinda 2nd low blood pressures : saO2 low to mid-80s on oxymask 15L, VapoTherm 40L/100% to remove any work of breathing & allow rest/alleviate anxiety of air hunger : morphine PRN for pain/air hunger : ECHO in AM : Isabella Marcos MD cardiology to evaluate in AM : Riaz Herring MD oncology consulted : supportive care Secondary esophageal CA metastatic to liver : management per oncology, no acute needs identified CHF/cardiomyopathy s/p AICD : reports recent ECHO at Georgette Walsh MD cardology's office w/ EF in the 40s : recheck ECHO in AM pAFIB : NSR currently, monitor DM2 : NPO : update A1c : Q4H glucometry : correctional insulin peripheral neuropathy 2nd taxol : review meds once reconciled GERD : IV pantoprazole HLD : atorvastatin 80mg Admission Rational: inpatient for critical patient at high risk of mortality DVTp: SCDs, not an anticoagulation candidate Code Status: full HCP: Critical Care Time: 80minutes with >50% spent at the bedside obtaining history, evaluating, explaining options, & determining goals of care
[2017-08-14] MEDS ORDERED: Morphine INJ* 2 MG/ML 1 ML SYRINGE (TWO MG - NEW SYRINGE VERSION) IV PRN (05:54)
[2017-08-14] MEDS: Insulin LISPRO* 1 UNITS UNIT SUBCUT SCH ×2 (06:43→10:18)
[2017-08-14] MEDS: Mometasone/Formoter 200/5 MDI INH SCH (07:16)
[2017-08-14] MEDS: Tiotropium CAP.INH* CAP.INH/18 MCG (USE ORDER SET !) INH SCH (07:17)
[2017-08-14] MEDS ORDERED: Spiriva Inhaler DEVICE* 1 EACH DEVICE INH ONE (09:00)
[2017-08-14] MEDS ORDERED: Pantoprazole IV* 40 MG IV SCH (09:00)
[2017-08-14] MEDS: Docusate CAP* 100 MG PO SCH ×2 (09:12→21:06)
--- NOTE | 2017-08-14 10:42 | PN ---
Progress Note - Progress Note Date of Service: 08/14/17 SOAP: Subjective: []Feels better with blood. Acute episode of feeling warm and dizzy at 1 am, ER. Has Hgb 4.6, increased Troponin and ST changes. No fevers. Had had decrease in bowl movements and brown stool over weekend. Acetaminophen (Tylenol Tab*) 650 mg PO Q6H PRN PRN Reason: FEVER/PAIN Albuterol (Ventolin 2.5 Mg/3 Ml Neb.Chary*) 2.5 mg INH Q2H PRN PRN Reason: SOB/WHEEZING Atorvastatin Calcium (Lipitor*) 80 mg PO 2100 ONE Stop: 08/14/17 21:01 Docusate Sodium (Colace Cap*) 200 mg PO BID [facility] Last Admin: 08/14/17 09:12 Dose: 200 mg Sodium Chloride (Ns 0.9% 1000 Ml*) 1,000 mls @ 50 mls/hr IV PER RATE [facility] Last Admin: 08/14/17 06:43 Dose: 50 mls/hr Insulin Human Lispro (Humalog*) 0 units SUBCUT Q4H MALINA PRN Reason: Protocol Last Admin: 08/14/17 10:18 Dose: Not Given Lorazepam (Ativan Inj*) 1 mg IV Q6H PRN PRN Reason: ANXIETY Mometasone Furoate/Formoterol Fumar (Dulera 200/5 Mdi*) 2 puff INH BID [facility] Last Admin: 08/14/17 07:16 Dose: 2 puff Morphine Sulfate (Morphine Inj (Syringe)*) 2 mg IV Q2H PRN PRN Reason: pain/air hunger Ondansetron HCl (Zofran Inj*) 4 mg IV Q6H PRN PRN Reason: NAUSEA Pantoprazole Sodium (Protonix Iv*) 40 mg IV DAILY [facility] Last Admin: 08/14/17 09:12 Dose: 40 mg Tiotropium Battiest (Spiriva Cap.Inh*) 1 cap INH DAILY [facility] Last Admin: 08/14/17 07:17 Dose: 1 cap Objective: [] Vital Signs Temp Pulse Resp BP Pulse Ox 98.7 F 96 21 105/59 100 08/14/17 08:00 08/14/17 10:01 08/14/17 10:01 08/14/17 10:00 08/14/17 10:01 HEENT- Pale, thin CTA RRS, tachy +BS, mild tenderness. Ext - good pulses. Assessment: []67 year old with metastatic esophageal cancer who had been on chemotherapy and now immunotherpy. He has had stable disease by CT scan but progressive and uncontrolled bleeding from esophageal lesion. Esophageal bleeding has been accelerating and he now presents with Hgb 4.6 and cardiac strain despite 2 U PRBC on Monday. Discussed that unable to control his bleeding he will quickly from cancer. We do not have any options for systemic therapy. XRT may stop bleeding temporarily but is purely palliative. He is accepting of prognosis measured in days, if eh can live longer he wants to . He wants to at home, he is not sure he would want hospice residence. His brother would like to see him before he dies and partner is calling the brother today. Plan: []1. Will transfuse today to allow family to come in and for him to see Dr. Ramos. - 2 additional U PRBC - CBC daily for now 2. No treatment cardiac disease 3. DNR/DNI 4. Consultation with Dr. Ramos to see if XRT can give him more time. 5. Hospice consultation. 6. Pain medication as needed. time with patient and chart 45 min
--- NOTE | 2017-08-14 10:45 | ECHO ---
Patient: GUZMAN DUNAWAY [facility] Rec#: [id number] : 1950 Date: 08/14/2017 Age: 67y Height: 177.8 cm / 70.0 in Weight: 75.3 kg / 166.0 lbs Sex: M BSA: 1.93 Room#: [facility]-3 Admit Date#: 08/14/2017 Type: Inpatient Referring: Burke Hale MD Reading: Alfa Marcos MD Energy Project Engineer: Payton Barr SHELDON CC: Dayne Barillas MD Transthoracic Echocardiogram Indication: STEMI BP: 118/75 HR: 86 Rhythm: Paced Findings Technical Comments: The study quality is good. Completed at 0839. Left Ventricle: The left ventricular chamber size is normal. Moderate concentric left ventricular hypertrophy is observed. There is diffuse global hypokinesis of the left ventricle. There is mildly decreased left ventricular systolic function. The estimated ejection fraction is 45-50%. There is abnormal ventricular septal wall motion consistent with right ventricular pacemaker. The patient was unable to perform a Valsalva maneuver. Left Atrium: The left atrium is moderately dilated. Right Ventricle: The right ventricular cavity size is normal. The right ventricular global systolic function is mildly reduced. A pacemaker wire is visualized in the right ventricle. Right Atrium: The right atrial cavity size is normal. A pacemaker wire is visualized in the right atrium. Aortic Valve: The aortic valve is trileaflet. The aortic valve leaflets are moderately thickened. Systolic excursion of the aortic valve cusps is reduced. There is a trace of aortic regurgitation. There is moderate aortic stenosis. The highest aortic valve velocity was obtained with the standard probe from the A5C view. Mitral Valve: The mitral valve leaflets do not appear thickened. There is moderate mitral regurgitation. There is no evidence of mitral stenosis. Tricuspid Valve: The tricuspid valve leaflets are normal. There is trace to mild tricuspid regurgitation. There is evidence of mild pulmonary hypertension. There is no tricuspid stenosis. Pulmonic Valve: The pulmonic valve appears normal. There is trace to mild pulmonic regurgitation. There is no pulmonic stenosis. Pericardium: A trivial pericardial effusion is visualized. There are no signs of significant hemodynamic compromise. Aorta: There is no dilatation of the ascending aorta. There is no dilatation of the aortic arch. There is no dilation of the aortic root. Pulmonary Artery: The main pulmonary artery appears normal. Venous: The venous system is not well visualized. Summary: There are no significant changes when compared to the previous study done on 08/02/17 Conclusions There is mildly decreased left ventricular systolic function. The estimated ejection fraction is 45-50%. There is diffuse global hypokinesis of the left ventricle. There is abnormal ventricular septal wall motion consistent with right ventricular pacemaker. The right ventricular global systolic function is mildly reduced. There is moderate aortic stenosis. There is moderate mitral regurgitation. There is trace to mild tricuspid regurgitation. There is evidence of mild pulmonary hypertension. A trivial pericardial effusion is visualized. There are no significant changes when compared to the previous study done on 08/02/17 Measurements Name Value Normal Range RVIDd (AP) 2D 2.2 cm (0.9 - 2.6) RVDdMajor (2D) 3.7 cm (2.2 - 4.4) RAd ISD 4CH 5.7 cm (3.4 - 4.9) RA (A4C)W 4.1 cm (2.9 - 4.6) IVSd (2D) 1.6 cm (0.6 - 1) LVPWd (2D) 1.4 cm (0.6 - 1) LVIDd (2D) 4.7 cm (3.6 - 5.4) LVIDs (2D) 4 cm - LV FS (2D) 15 % (25 - 45) Aortic Annulus 2 cm (1.4 - 2.6) Ao root diameter (2D) 3.3 cm (2.1 - 3.5) Ascending Ao 2.9 cm (2.1 - 3.4) Aortic arch 2.3 cm (1.8 - 3.4) Descending Ao 0.9 cm - LA dimension (AP) 2D 4.7 cm (2.3 - 3.8) LAd ISD 4CH 5.9 cm (2.9 - 5.3) LA ISD 4CH W 4 cm (2.5 - 4.5) Name Value Normal Range LA ESV SP 4CH (A/L) 63 ml - LA ESV SP 2CH (A/L) 64 ml - LA ESV BP (A/L) 66 ml - LA ESV BP (A/L) index 34.11 ml/m2 - LA ESV SP 4CH (MOD) 59 ml - LA ESV SP 2CH (MOD) 62 ml - Name Value Normal Range MV E-wave Vmax 1.1 m/sec - MV deceleration time 168 msec - LV septal e' Vmax 0.08 m/sec - LV lateral e' Vmax 0.14 m/sec - LV E:e' septal ratio 13.75 ratio - LV E:e' lateral ratio 7.85 ratio - Name Value Normal Range AV Vmax 2.5 m/sec - AV VTI 39.2 cm - AV peak gradient 24.28 mmHg - AV mean gradient 11.74 mmHg - LVOT diameter 2 cm - LVOT Vmax 1.1 m/sec - LVOT VTI 16.7 cm - LVOT peak gradient 4.7 mmHg - LVOT mean gradient 1.88 mmHg - SHAE (continuity Vmax) 1.4 cm2 - SHAE (continuity VTI) 1.3 cm2 - Name Value Normal Range MR Vmax 5.2 m/sec - MR VTI 121.5 cm - Name Value Normal Range TR Vmax 2.9 m/sec - TR peak gradient 33 mmHg - RAP 8 mmHg - RVSP 41 mmHg - Name Value Normal Range PV Vmax 1.3 m/sec - PV peak gradient 6.81 mmHg -
[2017-08-14 11:27] LABS: Hematocrit 18 % (42-52); Mean Corpuscular HGB Conc 33 g/dl (31-36); Mean Corpuscular Hemoglobin 30 pg (27-31); Mean Corpuscular Volume 91 fL (80-94); Mean Platelet Volume 8 um3 (7.4-10.4); Platelet Count 184 10^3/ul (150-450); Red Blood Count 1.97 10^6/ul (4.0-5.4); Red Cell Distribution Width 20 % (10.5-15); White Blood Count 11.1 10^3/ul (3.5-10.8)
[2017-08-14 11:32] LABS: EGFR Non-African American 65.8 (>60)
[2017-08-14] MEDS: Metoprolol Tartrate TAB* 25 MG PO SCH ×2 (12:42→21:06)
[2017-08-14 14:56] LABS: Hemoglobin 4.6 g/dl (14.0-18.0)
[2017-08-14] MEDS ORDERED: Atorvastatin* 80 MG TAB PO ONE (21:00)
[2017-08-14] MEDS: Omeprazole CAP* 20 MG PO SCH (21:11)
[2017-08-15] MEDS: Mometasone/Formoter 200/5 MDI INH SCH ×3 (00:20→07:45)
[2017-08-15 07:10] LABS: Hematocrit 18 % (42-52); Mean Corpuscular HGB Conc 33 g/dl (31-36); Mean Corpuscular Hemoglobin 30 pg (27-31); Mean Corpuscular Volume 90 fL (80-94); Mean Platelet Volume 8 um3 (7.4-10.4); Platelet Count 161 10^3/ul (150-450); Red Blood Count 1.99 10^6/ul (4.0-5.4); Red Cell Distribution Width 19 % (10.5-15); White Blood Count 8.1 10^3/ul (3.5-10.8)
[2017-08-15] MEDS: Tiotropium CAP.INH* CAP.INH/18 MCG (USE ORDER SET !) INH SCH ×2 (07:27→07:45)
[2017-08-15 07:31] LABS: EGFR Non-African American 75.9 (>60)
[2017-08-15] MEDS: Metoprolol Tartrate TAB* 25 MG PO SCH ×2 (08:20→20:18)
[2017-08-15] MEDS: Omeprazole CAP* 20 MG PO SCH ×2 (08:21→20:17)
[2017-08-15] MEDS: Docusate CAP* 100 MG PO SCH ×2 (08:22→20:17)
--- NOTE | 2017-08-15 12:24 | CONSULT ---
Palliative / Hospice Consult Ordering Provider: Derrek Herring - Subjective Code Status: DNR Advance Directives Location: In Chart [facility] Part A Completed: Yes - DNR [facility] Part E Completed:: Yes - Changed to accommodate wishes today - History or Present Illness History or Present Illness: This 67 year old man with a cardiac hisory including CAD with stent, AF, CHF with AICD, as well as DM2, was diagnosed with esophageal cancer in May 2016. By the time he was a candidate for esophageal resection in the spring, his cancer had metastasized to the liver. He has been treated with chemotherapy and then immunotherapy until this admission, admitted 08/07/17 with ind=ferior STEMI, and found to have a Hb of 4.6. He had been having dark stools for a week, and has had progressive unctontrolled bleeding from his esophageal mass. He was first sound to have anemia requiring transfusion on this basis in October 2016, and since then has received at least 40 units of PRBCs. 18 units of PRBCs have been transfused since 07/28/17. Yesterday he received 4 units, and today he will receive 2 units, prior to his first palliative radiation session. He is opting for a 3 to 5 day course of radiation in an effort to stop, or at least stem, the bleeding. This was successful in May when he had a similar scenario with blood loss. The patient and his say that until a week ago, they were under the impression that Oscar could survive another year on immunotherapy, and so he now feels pressure to get home and complete business he thought he would have more time for. He is aware and coping with his diagnosis and attempting to be realistic about it. His nutritional status is very poor, with an albumin of 2.4 , and prealbumin 12, and he has had no solid food for 6 months. He has lost at least 80 pounds. He initially was interested in a feeding tube, but has decided against this at this point, although he would like to maintain the option of IV fluids if he loses the ability to swallow fluids. He would like to go home today after his first radiation treatment and transfusion of another 2 u. PRBCs , but in discussion with Dr. Ramos, we agree that he would not do well trying to come to the hospital daily and would be well advised to remain in the hospital until the completion of radiation therapy. The patient has severe weakness, although he denies pain, and he even has difficulty transferring to the commode at present. Lab Values: Abnormal Lab Results 08/15/17 08/15/17 06:25 06:25 WBC 8.1 RBC 1.99 L Hgb 6.0 L* Hct 18 L MCV 90 MCH 30 MCHC 33 RDW 19 H Plt Count 161 MPV 8 Sodium 136 Potassium 4.1 Chloride 109 Carbon Dioxide 24 Anion Gap 3 BUN 54 H Creatinine 0.99 Est GFR ( Amer) 97.6 Est GFR (Non-Af Amer) 75.9 BUN/Creatinine Ratio 54.5 H Glucose 133 H Calcium 8.1 L Laboratory Last Values WBC 8.1 10^3/ul (3.5-10.8) 08/15/17 06:25 RBC 1.99 10^6/ul (4.0-5.4) L 08/15/17 06:25 Hgb 6.0 g/dl (14.0-18.0) L* 08/15/17 06:25 Hct 18 % (42-52) L 08/15/17 06:25 MCV 90 fL (80-94) 08/15/17 06:25 MCH 30 pg (27-31) 08/15/17 06:25 MCHC 33 g/dl (31-36) 08/15/17 06:25 RDW 19 % (10.5-15) H 08/15/17 06:25 Plt Count 161 10^3/ul (150-450) 08/15/17 06:25 MPV 8 um3 (7.4-10.4) 08/15/17 06:25 Neut % (Auto) 77.5 % (38-83) 08/14/17 02:10 Lymph % (Auto) 12.0 % (25-47) L 08/14/17 02:10 Walton % (Auto) 6.6 % (1-9) 08/14/17 02:10 Eos % (Auto) 3.4 % (0-6) 08/14/17 02:10 Baso % (Auto) 0.5 % (0-2) 08/14/17 02:10 Absolute Neuts (auto) 10.3 10^3/ul (1.5-7.7) H 08/14/17 02:10 Absolute Lymphs (auto) 1.6 10^3/ul (1.0-4.8) 08/14/17 02:10 Absolute Monos (auto) 0.9 10^3/ul (0-0.8) H 08/14/17 02:10 Absolute Eos (auto) 0.5 10^3/ul (0-0.6) 08/14/17 02:10 Absolute Basos (auto) 0.1 10^3/ul (0-0.2) 08/14/17 02:10 Absolute Nucleated RBC 0 10^3/ul 08/14/17 02:10 Nucleated RBC % 0.2 08/14/17 02:10 Polychromasia 1+ 08/14/17 02:10 Hypochromasia 2+ 08/14/17 02:10 Anisocytosis 2+ 08/14/17 02:10 INR (Anticoag Therapy) 1.07 (0.77-1.02) H 08/14/17 02:10 APTT 25.2 seconds (26.0-36.3) L 08/14/17 02:10 Sodium 136 mmol/L (133-145) 08/15/17 06:25 Potassium 4.1 mmol/L (3.5-5.0) 08/15/17 06:25 Chloride 109 mmol/L (101-111) 08/15/17 06:25 Carbon Dioxide 24 mmol/L (22-32) 08/15/17 06:25 Anion Gap 3 mmol/L (2-11) 08/15/17 06:25 BUN 54 mg/dL (6-24) H 08/15/17 06:25 Creatinine 0.99 mg/dL (0.67-1.17) 08/15/17 06:25 Est GFR ( Amer) 97.6 (>60) 08/15/17 06:25 Est GFR (Non-Af Amer) 75.9 (>60) 08/15/17 06:25 BUN/Creatinine Ratio 54.5 (8-20) H 08/15/17 06:25 Glucose 133 mg/dL (70-100) H 08/15/17 06:25 POC Glucose (mg/dL) 131 mg/dL (70-100) H 08/14/17 08:52 Hemoglobin A1c 4.3 % (4.0-5.6) 08/14/17 02:10 Lactic Acid 1.5 mmol/L (0.5-2.0) 08/14/17 06:35 Calcium 8.1 mg/dL (8.6-10.3) L 08/15/17 06:25 Total Bilirubin 0.80 mg/dL (0.2-1.0) 08/14/17 02:10 AST 12 U/L (13-39) L 08/14/17 02:10 ALT 11 U/L (7-52) 08/14/17 02:10 Alkaline Phosphatase 117 U/L (34-104) H 08/14/17 02:10 Total Creatine Kinase 23 U/L (10-223) 08/14/17 02:10 CK-MB (CK-2) 1.4 ng/mL (0.6-6.3) 08/14/17 02:10 Troponin I 0.21 ng/mL (<0.04) H* 08/14/17 11:00 B-Natriuretic Peptide 267 pg/mL (-100) H 08/14/17 02:10 Total Protein 4.6 g/dL (6.4-8.9) L 08/14/17 02:10 Albumin 2.4 g/dL (3.2-5.2) L 08/14/17 02:10 Globulin 2.2 g/dL (2-4) 08/14/17 02:10 Albumin/Globulin Ratio 1.1 (1-3) 08/14/17 02:10 Prealbumin 12 mg/dL (18-38) L 08/14/17 02:10 LDL Cholesterol Direct 38 mg/dL 08/14/17 02:10 Blood Type O Positive 08/14/17 02:10 Antibody Screen Negative 08/14/17 02:10 Crossmatch See Detail 08/14/17 02:10 - Objective Active Medications: Acetaminophen (Tylenol Tab*) 650 mg PO Q6H PRN PRN Reason: FEVER/PAIN Docusate Sodium (Colace Cap*) 200 mg PO BID [facility] Last Admin: 08/15/17 08:22 Dose: 100 mg Heparin Sodium (Porcine) (Heparin Flush Port (Ivad)) 5 ml FLUSH DAILY [facility] PRN Reason: Protocol Last Admin: 08/15/17 08:25 Dose: Not Given Lorazepam (Ativan Inj*) 0.5 mg IV PUSH Q4H PRN PRN Reason: ANXIETY Lorazepam (Ativan Tab(*)) 0.5 mg PO Q4H PRN PRN Reason: ANXIETY Metoprolol Tartrate (Lopressor Tab*) 25 mg PO BID [facility] Last Admin: 08/15/17 08:20 Dose: 25 mg Morphine Sulfate (Morphine Inj (Syringe)*) 2 mg IV Q2H PRN PRN Reason: pain/air hunger Omeprazole (Prilosec Cap*) 20 mg PO BID [facility] Last Admin: 08/15/17 08:21 Dose: 20 mg Ondansetron HCl (Zofran Inj*) 4 mg IV Q6H PRN PRN Reason: NAUSEA Scopolamine (Transderm-Scop 1.5 Mg Patch*) 1 patch TRANSDERM Q72H [facility] Vital Signs: Vital Signs: Temp Pulse Resp BP Pulse Ox 98.4 F 90 25 108/67 98 08/15/17 07:52 08/15/17 09:01 08/15/17 09:01 08/15/17 09:00 08/15/17 09:01 Patient Weight: Weight 166 lb 14.239 oz Intake and Output: Intake & Output 08/13/17 08/14/17 08/15/17 08/16/17 06:59 06:59 06:59 06:59 Intake Total 500 1213 Output Total 150 950 400 Balance 350 263 -400 Weight 162 lb 4.163 oz 166 lb 14.239 oz Intake: IV Fluids 50 513 NS 50 513 Oral 100 700 Packed Cells 350 Output: Urine 950 400 Yanes 150 ADLs: Meal Record Start: 08/14/17 05: 30 Freq: ,,18 Status: Active Protocol: Document 08/14/17 09:00 [id number] (Rec: 08/14/17 10:16 [id number] ICU-C15) Document 08/14/17 13:00 [id number] (Rec: 08/14/17 16:52 [id number] ICU-C15) Document 08/14/17 18:00 [id number] (Rec: 08/14/17 21:40 [id number] ICU-C16) Intake and Output Start: 08/14/17 05: 30 Freq: ,14, Status: Active Protocol: Document 08/14/17 06:00 [id number] (Rec: 08/14/17 06:37 [id number] ICU-M05) Document 08/14/17 14:00 [id number] (Rec: 08/14/17 14:05 [id number] ICU-M05) Document 08/14/17 15:14 [id number] (Rec: 08/14/17 15:15 [id number] ICU-M05) Document 08/15/17 04:30 [id number] (Rec: 08/15/17 04:30 [id number] ICU-C16) Document 08/15/17 10:08 [id number] (Rec: 08/15/17 10:09 [id number] [facility] [place] General Impression: Pleasant man with diminished voice and articulation, eager to talk and emotionally labile during the interview. Head: Symmetrical Eyes: No Scleral Icterus Ears/Nose/Mouth/Throat: Clear Oropharnyx Neck: NL Appearance and Movements; NL JVP, Trachea Midline, No Thyroid Enlargement, Masses Cardiovascular: RRR Respiratory: Symmetrical Chest Expansion and Respiratory Effort, Clear to Auscultation Abdominal: NL Sounds; No Tenderness; No Distention Extremities: No Edema Neurological: Alert and Oriented x 3 - Assessment Assessment: Pleasant 67 year old man with metastatic esophageal cancer, chronic GI blood loss due to oozing from esophageal lesion, with comorbid cardiac issues and DM. He has been recovering from his STEMI, but at this point needs to have his ICD deactivated as soon as possible. He has no options left for life-prolonging therapy other than radiation therapy and continued transfusions. Dr. Ramos says the radiation can take up to a week after the last treatment to effectively slow the bleeding, so the patient's is continuing to push for continued transfusions. I would suggest the patient remain in the hospital for the duration of his radiation therapy, and then when discharged go onto hospice services. We would continue to cover transfusions as needed for symptom control until a week after the last radiation treatment. If radiation has not been effective by that point, further transfusions would be futile. He meets criterail for hospice servies on the basis of his metastatic esophageal cancer, with a a secondary diagnosis of blood loss anemia, and comorbid cardiac disease and malnutrition. We filled out a new [facility] form to correct the contradiction of "DNR,DNI" and "No limitations on medical interventions" on his first form, as well as the decision to forego a feeding tube. Thank you for asking for palliative input. - Plan Consult Plan (MU): Hospice - Time On Unit Date of Evaluation: 08/15/17 Hospice Consult Time in: 11:00 Hospice Consult Time Out: 12:45 Hospice Consult Time Total: 105 > 50% of Time Spend In Counseling or Coordinating Care: Yes
[2017-08-15] MEDS: Scopolamine 1.5 mg* PATCH TRANSDERM SCH (13:43)
--- NOTE | 2017-08-15 15:41 | RAD ---
INDICATION: CT for radiation therapy mapping COMPARISON: CT June 06, 2017 TECHNIQUE: 193, nondiagnostic, axial source images of the chest were acquired. The patient drank a small amount of soft iCAD prior to the procedure FINDINGS: There is a moderate sized right-sided pleural effusion which appears new. There is right paratracheal adenopathy, unchanged. The esophagus appears abnormal with diffuse mucosal thickening most prominent at the level the distal esophagus. There is radiographic contrast within the esophagus which is trace down to the level of the GE junction. There is artifact from a cardiac pacemaker/defibrillator. Please refer also to recent CT report dated June 06, 2017. IMPRESSION: A SIM study was performed for radiation planning purposes.
[2017-08-15] MEDS: LORazepam TAB(*) 0.5 MG PO PRN (17:54)
[2017-08-15] MEDS: oxyCODONE TAB* 5 MG TAB PO PRN ×3 (20:17→22:28)
[2017-08-16 04:27] LABS: Hematocrit 19 % (42-52); Hemoglobin 6.4 g/dl (14.0-18.0); Mean Corpuscular HGB Conc 33 g/dl (31-36); Mean Corpuscular Hemoglobin 30 pg (27-31); Mean Corpuscular Volume 91 fL (80-94); Mean Platelet Volume 8 um3 (7.4-10.4); Platelet Count 166 10^3/ul (150-450); Red Blood Count 2.13 10^6/ul (4.0-5.4); Red Cell Distribution Width 17 % (10.5-15); White Blood Count 11.3 10^3/ul (3.5-10.8)
[2017-08-16] MEDS: Metoprolol Tartrate TAB* 25 MG PO SCH ×2 (07:50→19:44)
[2017-08-16] MEDS: Omeprazole CAP* 20 MG PO SCH ×2 (07:52→21:30)
[2017-08-16] MEDS: Docusate CAP* 100 MG PO SCH ×2 (07:52→07:55)
[2017-08-16] MEDS ORDERED: Polyethylene Glycol 3350 BTL* 238 GM BTL PO ONE (10:16)
--- NOTE | 2017-08-16 10:24 | PN ---
Progress Note - Progress Note Date of Service: 08/16/17 SOAP: Subjective: [][place] like while DNR he was not cared for. He wants transfusions and to stay alive if he can. Wants to give XRT a chance. Has never been one to give up but he understands on a conceptual level the limits of care. Does not want Morphine. Acetaminophen (Tylenol Tab*) 650 mg PO Q6H PRN PRN Reason: FEVER/PAIN Heparin Sodium (Porcine) (Heparin Flush Port (Ivad)) 5 ml FLUSH DAILY [facility] PRN Reason: Protocol Last Admin: 08/16/17 07:51 Dose: Not Given Lorazepam (Ativan Inj*) 0.5 mg IV PUSH Q4H PRN PRN Reason: ANXIETY Lorazepam (Ativan Tab(*)) 0.5 mg PO Q4H PRN PRN Reason: ANXIETY Last Admin: 08/15/17 17:54 Dose: 0.5 mg Metoprolol Tartrate (Lopressor Tab*) 25 mg PO BID [facility] Last Admin: 08/16/17 07:50 Dose: Not Given Omeprazole (Prilosec Cap*) 20 mg PO BID [facility] Last Admin: 08/16/17 07:52 Dose: 20 mg Ondansetron HCl (Zofran Inj*) 4 mg IV Q6H PRN PRN Reason: NAUSEA Oxycodone HCl (Roxycodone Tab*) 10 mg PO Q4H PRN PRN Reason: PAIN Last Admin: 08/15/17 22:28 Dose: 5 mg Polyethylene Glycol/Electrolytes (Miralax) 238 gm PO ONCE ONE Stop: 08/16/17 10:17 Scopolamine (Transderm-Scop 1.5 Mg Patch*) 1 patch TRANSDERM Q72H [facility] Last Admin: 08/15/17 13:43 Dose: 1 patch Objective: [] Vital Signs Temp Pulse Resp BP Pulse Ox 98.0 F 95 16 103/55 94 08/16/17 07:29 08/16/17 07:29 08/16/17 08:00 08/16/17 07:29 08/16/17 08:23 HEENT- Pale, thin CTA RRS, tachy +BS, mild tenderness. Ext - good pulses. Assessment: []67 year old with metastatic esophageal cancer who had been on chemotherapy and now immunotherpy. He has had stable disease by CT scan but progressive and uncontrolled bleeding from esophageal lesion. Esophageal bleeding has been accelerating and now on day 2 of 3 XRT. Requiring 2 U PRBC per day. Long discussion about end of life issues and limits of care. He wants to continue transfusions long enough for XRT to have a chance. He can understand conceptually stopping transfusions but at this time cannot take step to stop. He wants to go home but at this time care needs to great. Going home would be be to . Plan: []1. Will transfuse today and continue XRT - 2 additional U PRBC - CBC daily for now 2. No treatment cardiac disease. AICD disabled. 3. Extensive discussion regarding DNR/DNI. He agreed but wants all other care to continue. 4. Consultation with Dr. Ramos to see if XRT can give him more time. 5. In hospital though weekend, will consider hospice on Monday and will discuss again stopping transfusions. Family is at bedside. 6. Pain medication as needed. time with patient and chart 50 min
[2017-08-16] MEDS: Ondansetron INJ* 2 MG/ML VIAL IV PRN (12:12)
--- NOTE | 2017-08-16 14:31 | RADMED ---
RADIATION ONCOLOGY INPATIENT CONSULTATION: DATE OF SERVICE: 08/14/17 - ROOM #406 DIAGNOSIS: Metastatic esophageal cancer. 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 He developed distal metastatic disease and has received extensive systemic therapy as well as a course of palliative radiation therapy directed to the esophagus for bleeding and transfusion dependent anemia , 2000 cGy completed 03/14/17. He received additional systemic therapy, most recently immune therapy, but has had progression with increased bleeding, requiring ongoing transfusions. He had an episode of dizziness and weakness and 911 was called and he was admitted to the ICU. Other than his weakness and fatigue and melena, he denies pain, and is referred for evaluation for additional palliative radiation therapy. PAST MEDICAL HISTORY: Esophageal cancer, as in the history of present illness; history of gout, myocardial infarction, atrial fibrillation, congestive heart failure, coronary artery disease, and diabetes. FAMILY HISTORY: Significant for his father with leukemia and his mother who had myeloma as well as a sister who had breast cancer. SOCIAL HISTORY: He is a former smoker and does not drink significant amount of alcohol. He is accompanied by his who is quite supportive. Medications as per the inpatient record. ALLERGIES: SOTALOL. REVIEW OF SYSTEMS: As in the history of present illness, otherwise complete review of systems is as per the patient, negative for additional significant findings. PHYSICAL EXAMINATION: Vital Signs: T99.6, P69, RR17, BP112/69. General: He is alert, awake, and oriented; in no acute distress. Normocephalic and atraumatic. Sclerae anicteric. Neck: Full range of motion, midline trachea, no masses palpable in the neck or thyroid. Abdomen: Soft and nontender. Extremities: Some lower extremity edema. ASSESSMENT AND PLAN: Mr. Lawrence is a 67-year-old gentleman with progressive as well as metastatic esophageal cancer with ongoing hemorrhage from progressive primary tumor in the distal esophagus requiring ongoing transfusions for symptomatic anemia. I did review with the patient and his the logistics and rational for consideration of additional palliative radiation therapy. I also explained in detail the grave nature of his situation , with ongoing myocardial injury and limited options for durable cancer control from systemic therapy. I also explained the risks from a third course of radiation therapy. He understands, and is able to elucidate the situation with clarity. He has been offered hospice and palliative care, and is inclined in that direction, but with the hope that additional palliative radiation therapy could provide hemostasis, he is inclined to proceed with that treatment. He did sign inform consent and will undergo CT simulation to facilitate treatment planning. For his situation, I recommend 1500 cGy at 500 cGy per fraction. Tentative treatment start date 08/15/17. Thank you for giving me the opportunity to participate in the care of this very pleasant gentleman. [id number]/[facility] #: [id number] DEBORAH
[2017-08-16] MEDS: LORazepam INJ* 2 MG/ML 1 ML VIAL IV PUSH PRN (15:57)
[2017-08-16] MEDS: LORazepam TAB(*) 0.5 MG PO PRN (21:30)
[2017-08-16] MEDS: oxyCODONE TAB* 5 MG TAB PO PRN (23:48)
[2017-08-17] MEDS ORDERED: LORazepam TAB(*) 0.5 MG PO ONE (00:05)
[2017-08-17 05:24] LABS: ABS Basophils 0 10^3/ul (0-0.2); ABS Eosinophils 0.4 10^3/ul (0-0.6); ABS Lymphocytes 0.2 10^3/ul (1.0-4.8); ABS Monocytes 0.5 10^3/ul (0-0.8); ABS Nucleated RBC 0 10^3/ul; Eosinophil % 5.6 % (0-6); Hematocrit 18 % (42-52); Lymphocyte % 3.3 % (25-47); Mean Corpuscular HGB Conc 34 g/dl (31-36); Mean Corpuscular Hemoglobin 30 pg (27-31); Mean Corpuscular Volume 90 fL (80-94); Mean Platelet Volume 8 um3 (7.4-10.4); Nucleated Red Blood Cells % 0.1; Platelet Count 127 10^3/ul (150-450); Red Blood Count 1.99 10^6/ul (4.0-5.4); Red Cell Distribution Width 16 % (10.5-15); White Blood Count 7.2 10^3/ul (3.5-10.8)
[2017-08-17 05:27] LABS: Hemoglobin 6.1 g/dl (14.0-18.0)
--- NOTE | 2017-08-17 08:10 | PN ---
Progress Note - Progress Note Date of Service: 08/17/17 SOAP: Subjective: much more at peace today with his decision to be DNR knowing that we can give him blood while we wait to see if RT works. having black BMs. no pain. mild SOB that O2 helps with. biggest fear is going home and having air hunger like he did when his Hb was 4. Objective: Vital Signs Temp Pulse Resp BP Pulse Ox 97.5 F 103 16 92/45 95 08/17/17 04:48 08/17/17 04:48 08/17/17 04:48 08/17/17 04:48 08/17/17 04:48 sitting up in NAD perr eomi op moist dec bs bases s1 s2 tachy soft nt +bs trace le edema a+O x3, nonfocal neurological exam Laboratory Results - last 24 hr 08/14/17 08/16/17 08/17/17 02:10 11:40 05:10 WBC 7.2 RBC 1.99 L Hgb 6.1 L* Hct 18 L MCV 90 MCH 30 MCHC 34 RDW 16 H Plt Count 127 L MPV 8 Neut % (Auto) 83.7 H Lymph % (Auto) 3.3 L Cameron % (Auto) 6.8 Eos % (Auto) 5.6 Baso % (Auto) 0.6 Absolute Neuts (auto) 6.0 Absolute Lymphs (auto) 0.2 L Absolute Monos (auto) 0.5 Absolute Eos (auto) 0.4 Absolute Basos (auto) 0 Absolute Nucleated RBC 0 Nucleated RBC % 0.1 Blood Type O Positive Antibody Screen Negative Crossmatch See Detail Transfusion React Rpt Donor Unit # [id number] Post-Trans Blood Type O Positive Post-Trans JOSE Negative Acetaminophen (Tylenol Tab*) 650 mg PO Q6H PRN PRN Reason: FEVER/PAIN Heparin Sodium (Porcine) (Heparin Flush Port (Ivad)) 5 ml FLUSH DAILY MALINA PRN Reason: Protocol Last Admin: 08/17/17 05:03 Dose: 5 ml Lorazepam (Ativan Inj*) 0.5 mg IV PUSH Q4H PRN PRN Reason: ANXIETY Last Admin: 08/16/17 15:57 Dose: 0.5 mg Lorazepam (Ativan Tab(*)) 0.5 mg PO Q4H PRN PRN Reason: ANXIETY Last Admin: 08/16/17 21:30 Dose: 0.5 mg Metoprolol Tartrate (Lopressor Tab*) 25 mg PO BID [facility] Last Admin: 08/16/17 19:44 Dose: Not Given Omeprazole (Prilosec Cap*) 20 mg PO BID [facility] Last Admin: 08/16/17 21:30 Dose: 20 mg Ondansetron HCl (Zofran Inj*) 4 mg IV Q6H PRN PRN Reason: NAUSEA Last Admin: 08/16/17 12:12 Dose: 4 mg Oxycodone HCl (Roxycodone Tab*) 10 mg PO Q4H PRN PRN Reason: PAIN Last Admin: 08/16/17 23:48 Dose: 10 mg Scopolamine (Transderm-Scop 1.5 Mg Patch*) 1 patch TRANSDERM Q72H [facility] Last Admin: 08/15/17 13:43 Dose: 1 patch Assessment: 67 yo M w end stage esophageal CA with terminal bleeding. We are trying one last shot at RT to slow down the bleeding so as to try to give him more time. He is aware that if this does not work, he will be going home to . I reiterated today that we will do this with oxygen and morphine to take away his air hunger if necessary. plan will be to transfuse him daily through the weekend to see if RT works. Monday will likely go home with hospice.
[2017-08-17] MEDS: Omeprazole CAP* 20 MG PO SCH ×3 (09:50→21:16)
[2017-08-17] MEDS: Metoprolol Tartrate TAB* 25 MG PO SCH ×2 (09:51→21:16)
[2017-08-17] MEDS: Morphine ORAL CONCENTRATE* 5 MG/0.25 ML ORAL.SYRIN PO PRN ×3 (09:51→21:52)
--- NOTE | 2017-08-17 13:48 | PN ---
Progress Note - Progress Note Date of Service: 08/17/17 Note: Stopped in to see how patient was faring with his radiation treatments and his decisions about care. Apparently the patient thought he was not getting ideal care because he was "DNR", and so wanted to revert to full code status, but Dr. Herring convinced him that care would be the same regardless of code status. The patient was irritated by repeated beeping from his IVAC. He has agreed to remain in the hospital at Dr. Herring's recommendation over the weekend so the effects of the radiation on his H/H can be assessed, and so he can get transfusions on weekend days here. He hopes to go home on Monday. He is interested in hospice care at home. I explained that on hospice, transfusions are usually not offered except for symptom management, and labwork to assess H/ H is usually not obtained, as we treat the patient's symptoms, not the numbers, and he understands this. He will decide about hospice when the time comes. He thinks his will be able to manage his care at home. I encouraged both of them to remain open to hiring in additional care and even moving to a nursing situation such as SNF or the residence, if caregiving demands become overwhelming.
[2017-08-17] MEDS: Ondansetron INJ* 2 MG/ML VIAL IV PRN (21:16)
[2017-08-17] MEDS: LORazepam INJ* 2 MG/ML 1 ML VIAL IV PUSH PRN (21:52)
[2017-08-18 05:42] LABS: Hematocrit 19 % (42-52); Hemoglobin 6.3 g/dl (14.0-18.0); Mean Corpuscular HGB Conc 33 g/dl (31-36); Mean Corpuscular Hemoglobin 30 pg (27-31); Mean Corpuscular Volume 89 fL (80-94); Mean Platelet Volume 8 um3 (7.4-10.4); Platelet Count 134 10^3/ul (150-450); Red Blood Count 2.13 10^6/ul (4.0-5.4); Red Cell Distribution Width 16 % (10.5-15)
[2017-08-18] MEDS: Morphine ORAL CONCENTRATE* 5 MG/0.25 ML ORAL.SYRIN PO PRN ×2 (05:43→21:18)
[2017-08-18] MEDS: LORazepam TAB(*) 0.5 MG PO PRN (05:43)
--- NOTE | 2017-08-18 07:50 | PN ---
Progress Note - Progress Note Date of Service: 08/18/17 SOAP: Subjective: []No change. Still SOB. Tolerating transfusions. Does not want to give up if there is any chance bleeding will stop after XRT Acetaminophen (Tylenol Tab*) 650 mg PO Q6H PRN PRN Reason: FEVER/PAIN Lorazepam (Ativan Inj*) 0.5 mg IV PUSH Q4H PRN PRN Reason: ANXIETY Last Admin: 08/17/17 21:52 Dose: 0.5 mg Lorazepam (Ativan Tab(*)) 0.5 mg PO Q4H PRN PRN Reason: ANXIETY Last Admin: 08/18/17 05:43 Dose: 0.5 mg Metoprolol Tartrate (Lopressor Tab*) 25 mg PO BID [facility] Last Admin: 08/17/17 21:16 Dose: Not Given Morphine Sulfate (Morphine Oral Concentrate*) 5 mg PO Q2H PRN PRN Reason: PAIN Last Admin: 08/18/17 05:43 Dose: 5 mg Omeprazole (Prilosec Cap*) 20 mg PO BID [facility] Last Admin: 08/17/17 21:16 Dose: Not Given Ondansetron HCl (Zofran Inj*) 4 mg IV Q6H PRN PRN Reason: NAUSEA Last Admin: 08/17/17 21:16 Dose: 4 mg Oxycodone HCl (Roxycodone Tab*) 10 mg PO Q4H PRN PRN Reason: PAIN Last Admin: 08/16/17 23:48 Dose: 10 mg Scopolamine (Transderm-Scop 1.5 Mg Patch*) 1 patch TRANSDERM Q72H [facility] Last Admin: 08/15/17 13:43 Dose: 1 patch Objective: [] Vital Signs Temp Pulse Resp BP Pulse Ox 97.3 F 116 18 91/63 95 08/18/17 03:15 08/18/17 03:15 08/18/17 05:43 08/18/17 03:15 08/18/17 03:15 HEENT- Pale, thin CTA RR RRR, tachy +BS, mild tenderness. Ext - good pulses. Assessment: []67 year old with metastatic esophageal cancer who had been on chemotherapy and now immunotherpy. He has had stable disease by CT scan but progressive and uncontrolled bleeding from esophageal lesion. Esophageal bleeding has been accelerating and now s/p XRT completed yesterday. Requiring 2 U PRBC per day. Again discussed plan and goals. If no control of bleeding by next Monday I think it is unlikely we will see improvement. He is willing to re-consider transfusions at that time. Plan: []1. Transfuse daily - 2 additional U PRBC - CBC daily for now 2. No treatment cardiac disease. AICD disabled. 3. Continue DNR/DNI 4. Consider transfusion and then d/c Monday with out patient transfusions next week. I can meet with him next Monday and again discuss hospice. He is not ready to stop transfusions today.
[2017-08-18] MEDS ORDERED: Ondansetron INJ* 2 MG/ML VIAL IV PRN (07:53)
[2017-08-18] MEDS: Metoprolol Tartrate TAB* 25 MG PO SCH ×2 (08:08→21:09)
[2017-08-18] MEDS: Scopolamine 1.5 mg* PATCH TRANSDERM SCH (08:17)
[2017-08-18] MEDS: Omeprazole CAP* 20 MG PO SCH ×2 (08:18→21:09)
[2017-08-18] MEDS: LORazepam INJ* 2 MG/ML 1 ML VIAL IV PUSH PRN (21:17)
[2017-08-19 06:10] LABS: ABS Basophils 0 10^3/ul (0-0.2); ABS Eosinophils 0.4 10^3/ul (0-0.6); ABS Lymphocytes 0.2 10^3/ul (1.0-4.8); ABS Monocytes 0.4 10^3/ul (0-0.8); ABS Neutrophils 6.2 10^3/ul (1.5-7.7); ABS Nucleated RBC 0 10^3/ul; Eosinophil % 5.5 % (0-6); Hematocrit 17 % (42-52); Hemoglobin 5.8 g/dl (14.0-18.0); Lymphocyte % 2.2 % (25-47); Mean Corpuscular HGB Conc 34 g/dl (31-36); Mean Corpuscular Hemoglobin 30 pg (27-31); Mean Corpuscular Volume 89 fL (80-94); Mean Platelet Volume 8 um3 (7.4-10.4); Nucleated Red Blood Cells % 0.1; Platelet Count 126 10^3/ul (150-450); Red Blood Count 1.96 10^6/ul (4.0-5.4); Red Cell Distribution Width 16 % (10.5-15); White Blood Count 7.2 10^3/ul (3.5-10.8)
[2017-08-19] MEDS: Morphine ORAL CONCENTRATE* 5 MG/0.25 ML ORAL.SYRIN PO PRN ×3 (07:55→22:05)
[2017-08-19] MEDS: LORazepam INJ* 2 MG/ML 1 ML VIAL IV PUSH PRN ×2 (07:55→22:16)
[2017-08-19] MEDS: Metoprolol Tartrate TAB* 25 MG PO SCH (09:44)
[2017-08-19] MEDS: LORazepam TAB(*) 0.5 MG PO PRN ×2 (12:36→22:05)
[2017-08-19] MEDS ORDERED: GuaiFENesin DM* 5 ML UDC PO PRN (13:02)
[2017-08-19] MEDS: Omeprazole CAP* 20 MG PO SCH ×2 (14:51→21:41)
[2017-08-20 06:20] LABS: ABS Basophils 0.1 10^3/ul (0-0.2); ABS Eosinophils 0.5 10^3/ul (0-0.6); ABS Lymphocytes 0.2 10^3/ul (1.0-4.8); ABS Monocytes 0.5 10^3/ul (0-0.8); ABS Neutrophils 6.8 10^3/ul (1.5-7.7); ABS Nucleated RBC 0 10^3/ul; Eosinophil % 5.9 % (0-6); Hematocrit 19 % (42-52); Hemoglobin 6.5 g/dl (14.0-18.0); Lymphocyte % 2.7 % (25-47); Mean Corpuscular HGB Conc 35 g/dl (31-36); Mean Corpuscular Hemoglobin 32 pg (27-31); Mean Corpuscular Volume 89 fL (80-94); Mean Platelet Volume 8 um3 (7.4-10.4); Nucleated Red Blood Cells % 0.1; Platelet Count 134 10^3/ul (150-450); Red Blood Count 2.08 10^6/ul (4.0-5.4); Red Cell Distribution Width 16 % (10.5-15); White Blood Count 8.1 10^3/ul (3.5-10.8)
[2017-08-20] MEDS: Omeprazole CAP* 20 MG PO SCH (08:02)
[2017-08-20] MEDS: Morphine ORAL CONCENTRATE* 5 MG/0.25 ML ORAL.SYRIN PO PRN ×2 (09:55→15:38)
[2017-08-20 15:42] VITALS: BP 105/66
== END 2017-08-20 15:55 | disposition home or self-care (01) | DRG 811 ==
LOC: ED 02:01 → ICU 04:18 → MED 08-15 16:33
PROVIDERS: ADMIT Hospitalist; ATTEND Internal Medicine Hematology & Oncology
PROC: 30233N1 Transfusion of Nonautologous Red Blood Cells into Peripheral Vein, Percutaneous Approach (ICD-10-PCS; principal; 2017-08-14)
PROC: DD001ZZ Beam Radiation of Esophagus using Photons 1 - 10 MeV (ICD-10-PCS; 2017-08-15)
DX: D50.0 Iron deficiency anemia secondary to blood loss (chronic) (principal); I21.19 ST elevation (STEMI) myocardial infarction involving other coronary artery of inferior wall; E46 Unspecified protein-calorie malnutrition; C15.9 Malignant neoplasm of esophagus, unspecified; C78.7 Secondary malignant neoplasm of liver and intrahepatic bile duct; E11.42 Type 2 diabetes mellitus with diabetic polyneuropathy; I48.0 Paroxysmal atrial fibrillation; K21.9 Gastro-esophageal reflux disease without esophagitis; K92.1 Melena; I11.0 Hypertensive heart disease with heart failure; I50.9 Heart failure, unspecified; I25.119 Atherosclerotic heart disease of native coronary artery with unspecified angina pectoris; Z95.5 Presence of coronary angioplasty implant and graft; M10.9 Gout, unspecified; E78.5 Hyperlipidemia, unspecified; Z79.84 Long term (current) use of oral hypoglycemic drugs; Z79.891 Long term (current) use of opiate analgesic; Z79.899 Other long term (current) drug therapy; Z88.8 Allergy status to other drugs, medicaments and biological substances; Z87.891 Personal history of nicotine dependence; Z80.8 Family history of malignant neoplasm of other organs or systems; Z82.5 Family history of asthma and other chronic lower respiratory diseases; Z82.49 Family history of ischemic heart disease and other diseases of the circulatory system; Z80.3 Family history of malignant neoplasm of breast; K22.8 Other specified diseases of esophagus; Z95.810 Presence of automatic (implantable) cardiac defibrillator; F41.9 Anxiety disorder, unspecified; Z66 Do not resuscitate; Z68.20 Body mass index [BMI] 20.0-20.9, adult
CPT/HCPCS: 36415; 36430; 36591; 77014; 80048; 80053; 82550; 82553; 83036; 83605; 83721; 83880; 84134; 84484; 85025; 85027; 85610; 85730; 86078; 86850; 86900; 86901; 86922; 87641; 93005; 93306; 94640; 94760; 94762; 99232; 99233; 99239; 99285; A9270-GY; J1642; J2060; J2405; P9040

== ENCOUNTER 2017-08-23 12:14 | Inpatient (IN) | payer MEDICARE, OTHER ==
[2017-08-23] MEDS ORDERED: Ondansetron INJ* 2 MG/ML VIAL IV PRN (12:30)
[2017-08-23] MEDS ORDERED: Acetaminophen TAB* 325 MG PO PRN (12:30)
[2017-08-23] MEDS ORDERED: Morphine INJ* 2 MG/ML 1 ML SYRINGE (TWO MG - NEW SYRINGE VERSION) IV PRN (12:30)
[2017-08-23] MEDS ORDERED: LORazepam TAB(*) 1 MG SL PRN (12:35)
[2017-08-23] MEDS ORDERED: Prochlorperazine TAB* 10 MG PO PRN (12:35)
[2017-08-23 14:39] VITALS: BP 100/63
== END 2017-08-23 14:40 | disposition hospice, inpatient (51) | DRG 951 ==
LOC: MED 13:25
PROVIDERS: ADMIT Internal Medicine Hematology & Oncology; ATTEND Internal Medicine Hematology & Oncology
DX: Z51.5 Encounter for palliative care (principal); C78.7 Secondary malignant neoplasm of liver and intrahepatic bile duct; C15.5 Malignant neoplasm of lower third of esophagus; I48.91 Unspecified atrial fibrillation; I50.9 Heart failure, unspecified; I25.10 Atherosclerotic heart disease of native coronary artery without angina pectoris; E11.9 Type 2 diabetes mellitus without complications; M10.9 Gout, unspecified; I25.2 Old myocardial infarction; Z95.810 Presence of automatic (implantable) cardiac defibrillator; Z79.84 Long term (current) use of oral hypoglycemic drugs; Z79.891 Long term (current) use of opiate analgesic; Z79.899 Other long term (current) drug therapy; Z88.8 Allergy status to other drugs, medicaments and biological substances; Z87.891 Personal history of nicotine dependence; Z80.6 Family history of leukemia; Z80.3 Family history of malignant neoplasm of breast; Z80.8 Family history of malignant neoplasm of other organs or systems; Z82.49 Family history of ischemic heart disease and other diseases of the circulatory system
CPT/HCPCS: 36415; 36430; 36591; 36593; 85025; 99213; 99219; G0463; J1642; J2270